=== PATIENT | male | born 1995 | race Two or more races ===

== ENCOUNTER 2021-01-26 21:48 | Inpatient (IN) | payer BC, MEDICAID ==
[~2021-01-26] VITALS: Ht 167.6 cm; Wt 42.7 kg
[2021-01-26] MEDS ORDERED: PRED-409 PO (21:57)
[2021-01-26] MEDS ORDERED: [UNRECOGNIZED DRUG - OTHER] PO (21:57)
[2021-01-26] MEDS ORDERED: INSU100C14 SQ (21:57)
[2021-01-26] MEDS ORDERED: IMURAN PO (21:57)
[2021-01-26 22:04] LABS: GLUCOMETER DEV NAME(LOC) ERT.5; GLUCOSE,POINT OF CARE 130 MG/DL (70-110)
[2021-01-26] MEDS ORDERED: HYDROmorphone 2 MG/ML VIAL IVP ONE (22:45)
[2021-01-26] MEDS ORDERED: ONDANSETRON HCL 4 MG/2 ML VIAL IVP ONE (22:45)
[2021-01-26] MEDS ORDERED: SODIUM CHLORIDE 0.9% 1,000 ML IV ONE (22:45)
[2021-01-26 23:12] LABS: COVID AG,FIA SOURCE NASOPHARYNGEAL
[2021-01-26] MEDS ORDERED: ONDANSETRON HCL 4 MG/2 ML VIAL IVP PRN ×2 (23:15→23:30)
[2021-01-26] MEDS ORDERED: 0.9% SODIUM CHLORIDE 10 ML SYRINGE IVP PRN (23:15)
[2021-01-26] MEDS ORDERED: BARIUM SULFATE 0.1% SUSPENSION 450 ML BOTTLE PO ONE (23:15)
[2021-01-26] MEDS ORDERED: MAGNESIUM HYDROXIDE SUSPENSION 30 ML UDCUP PO PRN (23:30)
[2021-01-26] MEDS ORDERED: INSULIN LISPRO 100 UNITS/ML SQ PRN (23:30)
[2021-01-26] MEDS ORDERED: DEXTROSE 50%-WATER 25 GM/50 ML SYRINGE IVP PRN (23:30)
[2021-01-26] MEDS ORDERED: MORPHINE SULFATE 2 MG/ML SYRINGE IVP PRN (23:30)
[2021-01-26] MEDS ORDERED: ACETAMINOPHEN 325 MG TABLET PO PRN (23:30)
[2021-01-26] MEDS ORDERED: BISACODYL 10 MG RECTAL RECTAL SUPPOSITORY PR PRN (23:30)
[2021-01-26] MEDS ORDERED: ZOLPIDEM TARTRATE 5 MG TABLET PO PRN (23:30)
[2021-01-26] MEDS ORDERED: HYDROCODONE/ACETAMINOPHEN 5-325 MG TABLET PO PRN (23:30)
[2021-01-26] MEDS ORDERED: DiphenhydrAMINE HCL 50 MG/ML VIAL IVP ONE (23:45)
[2021-01-27 01:13] LABS: ACETONE,BLOOD NEGATIVE (NEGATIVE)
[2021-01-27 01:15] LABS: ANION GAP 8 mmol/L (8-16); CALCIUM, TOTAL 7.4 mg/dL (8.8-10.5); CARBON DIOXIDE 21 mmol/L (22-29); CHLORIDE 98 mmol/L (98-107); CREATININE 1.42 mg/dL (0.60-1.30); GLOMERULAR FILTR. RATE CALC 60 mL/min (>60); GLUCOSE,RANDOM 198 mg/dL (70-110); POTASSIUM 5.7 mmol/L (3.5-5.1); UREA NITROGEN, BLOOD 18 mg/dL (7-18)
[2021-01-27 01:16] LABS: SODIUM SERUM 127 mmol/L (136-145)
[2021-01-27 01:21] LABS: BASOPHILS % (AUTO) 0.5 % (0.0-2.0); EOSINOPHILS % (AUTO) 3.7 % (1.0-6.0); HEMATOCRIT 21.4 % (41-53); HEMOGLOBIN 7.2 g/dL (13.5-17.5); LYMPHOCYTES # (AUTO) 0.9 K/uL (1.0-4.8); LYMPHOCYTES % (AUTO) 14.7 % (22.0-44.0); MEAN CORPUSCULAR HEMOGLOBIN 29.7 pg (26.0-34.0); MEAN CORPUSCULAR HGB CONC 33.7 G/dL (31.0-37.0); MEAN CORPUSCULAR VOLUME 88 fL (80-100); MONOCYTES # (AUTO) 0.6 K/uL (0.1-1.0); MONOCYTES % (AUTO) 9.4 % (2.0-9.0); NEUTROPHILS # (AUTO) 4.2 K/uL (1.8-7.7); NEUTROPHILS % (AUTO) 71.7 % (40.0-70.0); PLATELET COUNT (AUTO) 90 K/uL (150-450); RED BLOOD CELL COUNT(AUTO) 2.42 MIL/uL (4.50-5.90); RED CELL DISTRIBUTION WIDTH 15.2 % (11.5-14.5)
[2021-01-27 01:22] LABS: ALANINE AMINOTRANSFERASE 18 U/L (12-78); ALBUMIN 2.7 g/dL (3.4-5.0); ALKALINE PHOSPHATASE 68 U/L (46-116); ASPARTATE AMINOTRANSFERASE 17 U/L (15-37); BILIRUBIN,TOTAL 0.2 mg/dL (0.1-1.0); LIPASE 14 U/L (73-393); TOTAL PROTEIN, SERUM 5.5 g/dL (6.4-8.2)
[2021-01-27 01:23] LABS: B-TYPE NATRIURETIC PEPTIDE 21 pg/mL (0-100)
[2021-01-27] MEDS ORDERED: SODIUM CHLORIDE 0.9% 100 ML ONE (01:25)
[2021-01-27] MEDS ORDERED: IOHEXOL 350 MG/ML 75 ML VIAL ONE (01:25)
[2021-01-27 01:28] LABS: LACTIC ACID 1.8 mmol/L (0.4-2.0)
[2021-01-27 01:38] LABS: APPEARANCE,URINE CLEAR (CLEAR); BILIRUBIN,URINE NEGATIVE (NEGATIVE); GLUCOSE, URINE (UA) 100 mg/dL (NEGATIVE); KETONES,URINE NEGATIVE (NEGATIVE); LEUKOCYTE ESTERASE ,URINE NEGATIVE (NEGATIVE); NITRATE,URINE NEGATIVE (NEGATIVE); OCCULT BLOOD,URINE NEGATIVE (NEGATIVE); PROTEIN,URINE NEGATIVE (NEGATIVE); UROBILINOGEN,URINE 0.2 mg/dL (<=1.0)
[2021-01-27 01:44] LABS: AMPHET/METH SCREEN,URINE NEGATIVE (NEGATIVE); BARBITURATE SCREEN, URINE NEGATIVE (NEGATIVE); BENZODIAZEPINES SCREEN,URINE NEGATIVE (NEGATIVE); CANNABINOID SCREEN,URINE NEGATIVE (NEGATIVE); COCAINE SCREEN,URINE NEGATIVE (NEGATIVE); METHADONE SCREEN, URINE NEGATIVE (NEGATIVE); OPIATE SCREEN,URINE POSITIVE (NEGATIVE); PHENCYCLIDINE SCREEN,URINE NEGATIVE (NEGATIVE)
[2021-01-27 01:46] LABS: BACTERIA,URINE None Seen /HPF (None Seen); RBC,URINE 0-2 /HPF (0-2); SQUAMOUS EPITHELIAL CELL,UR None Seen /LPF (None Seen); WBC,URINE 0-2 /HPF (0-5)
[2021-01-27] MEDS: MORPHINE SULFATE 2 MG/ML SYRINGE IVP PRN ×6 (02:29→23:48)
[2021-01-27] MEDS ORDERED: HYDROmorphone 2 MG/ML VIAL IVP ONE ×2 (04:15→05:15)
[2021-01-27] MEDS ORDERED: HYDROmorphone 2 MG/ML VIAL IVP PRN (05:15)
[2021-01-27 05:34] VITALS: BP 120/68
[2021-01-27] MEDS: HEPARIN SODIUM,PORCINE 5,000 UNITS/ML VIAL SQ SCH ×4 (06:30→23:47)
[2021-01-27] MEDS ORDERED: SODIUM CHLORIDE 0.9% 1,000 ML IV ONE (07:00)
[2021-01-27 07:21] VITALS: BP 105/63
[2021-01-27] MEDS: PredniSONE 5 MG TABLET PO SCH ×2 (09:00→14:47)
[2021-01-27] MEDS: TACROLIMUS 5 MG CAPSULE PO SCH ×3 (09:00→20:15)
[2021-01-27] MEDS ORDERED: DOCUSATE SODIUM 100 MG CAPSULE PO SCH (09:00)
[2021-01-27] MEDS: TACROLIMUS 1 MG CAPSULE PO SCH ×3 (09:00→20:15)
[2021-01-27] MEDS ORDERED: PANTOPRAZOLE SODIUM 40 MG DR TABLET PO SCH (09:00)
[2021-01-27] MEDS: DOCUSATE SODIUM 100 MG CAPSULE PO SCH ×2 (10:15→20:16)
[2021-01-27] MEDS: PANTOPRAZOLE SODIUM 40 MG/VIAL IVP SCH ×2 (10:41→20:14)
[2021-01-27 10:52] LABS: BASOPHILS % (AUTO) 0.1 % (0.0-2.0); EOSINOPHILS % (AUTO) 2.3 % (1.0-6.0); HEMATOCRIT 21.4 % (41-53); HEMOGLOBIN 7.2 g/dL (13.5-17.5); LYMPHOCYTES # (AUTO) 0.5 K/uL (1.0-4.8); LYMPHOCYTES % (AUTO) 12.3 % (22.0-44.0); MEAN CORPUSCULAR HEMOGLOBIN 29.7 pg (26.0-34.0); MEAN CORPUSCULAR HGB CONC 33.6 G/dL (31.0-37.0); MEAN CORPUSCULAR VOLUME 89 fL (80-100); MONOCYTES # (AUTO) 0.4 K/uL (0.1-1.0); MONOCYTES % (AUTO) 9.1 % (2.0-9.0); NEUTROPHILS # (AUTO) 3.3 K/uL (1.8-7.7); NEUTROPHILS % (AUTO) 76.2 % (40.0-70.0); PLATELET COUNT (AUTO) 82 K/uL (150-450); RED BLOOD CELL COUNT(AUTO) 2.42 MIL/uL (4.50-5.90); RED CELL DISTRIBUTION WIDTH 15.4 % (11.5-14.5)
[2021-01-27 10:54] LABS: GLUCOMETER DEV NAME(LOC) 6S.1; GLUCOSE,POINT OF CARE 131 MG/DL (70-110)
[2021-01-27 11:06] LABS: ANION GAP 14 mmol/L (8-16); CALCIUM, TOTAL 7.8 mg/dL (8.8-10.5); CARBON DIOXIDE 22 mmol/L (22-29); CHLORIDE 101 mmol/L (98-107); GLOMERULAR FILTR. RATE CALC > 60 mL/min (>60); GLUCOSE,RANDOM 146 mg/dL (70-110); SODIUM SERUM 137 mmol/L (136-145); UREA NITROGEN, BLOOD 23 mg/dL (7-18)
[2021-01-27] MEDS ORDERED: AZAT50TA17 PO (11:09)
[2021-01-27] MEDS ORDERED: TACR4TAB PO (11:11)
[2021-01-27] MEDS ORDERED: TACR1TAB PO (11:11)
[2021-01-27] MEDS ORDERED: INSLAN SQ (11:11)
[2021-01-27] MEDS ORDERED: LIPA1CAP18 PO (11:11)
[2021-01-27] MEDS ORDERED: POLYETHYLENE GLYCOL 3350 17 GM PACKET PO SCH (12:45)
[2021-01-27] MEDS ORDERED: BISACODYL 10 MG RECTAL RECTAL SUPPOSITORY PR SCH (12:45)
[2021-01-27] MEDS ORDERED: SODIUM CHLORIDE 0.9% 1,000 ML IV SCH (13:00)
[2021-01-27] MEDS: DiphenhydrAMINE HCL 50 MG/ML VIAL IVP PRN ×2 (13:11→21:59)
[2021-01-27 13:32] LABS: INR 1.1 (0.9-1.1); PROTHROMBIN TIME 11.2 SEC (9.4-11.6)
[2021-01-27 13:33] LABS: PHOSPHORUS 4.2 mg/dL (2.5-4.9)
[2021-01-27 13:51] LABS: LACTIC ACID 0.6 mmol/L (0.4-2.0)
[2021-01-27 14:42] LABS: GLUCOMETER DEV NAME(LOC) 6S.1; GLUCOSE,POINT OF CARE 118 MG/DL (70-110)
[2021-01-27 16:16] LABS: % IRON SATURATION 12.8 % (30-44)
[2021-01-27 16:29] LABS: FERRITIN 72 ng/mL (26-388)
[2021-01-27 18:39] LABS: HEMATOCRIT 21.2 % (41-53)
[2021-01-27] MEDS ORDERED: MORPHINE SULFATE 2 MG/ML SYRINGE IVP ONE (21:45)
[2021-01-27 22:18] LABS: GLUCOMETER DEV NAME(LOC) 6N.1; GLUCOSE,POINT OF CARE 162 MG/DL (70-110)
[2021-01-28 03:35] LABS: BASOPHILS % (AUTO) 0.2 % (0.0-2.0); EOSINOPHILS % (AUTO) 2.6 % (1.0-6.0); LYMPHOCYTES # (AUTO) 0.7 K/uL (1.0-4.8); MEAN CORPUSCULAR HEMOGLOBIN 29.7 pg (26.0-34.0); MEAN CORPUSCULAR HGB CONC 33.3 G/dL (31.0-37.0); MEAN CORPUSCULAR VOLUME 89 fL (80-100); MONOCYTES # (AUTO) 0.3 K/uL (0.1-1.0); MONOCYTES % (AUTO) 8.9 % (2.0-9.0); NEUTROPHILS # (AUTO) 2.3 K/uL (1.8-7.7); NEUTROPHILS % (AUTO) 68.3 % (40.0-70.0); PLATELET COUNT (AUTO) 89 K/uL (150-450); RED CELL DISTRIBUTION WIDTH 15.7 % (11.5-14.5)
[2021-01-28] MEDS: MORPHINE SULFATE 2 MG/ML SYRINGE IVP PRN (03:37)
[2021-01-28 03:40] LABS: ANION GAP 7 mmol/L (8-16); CARBON DIOXIDE 25 mmol/L (22-29); CHLORIDE 106 mmol/L (98-107); CREATININE 1.34 mg/dL (0.60-1.30); GLOMERULAR FILTR. RATE CALC > 60 mL/min (>60); GLUCOSE,RANDOM 94 mg/dL (70-110); SODIUM SERUM 138 mmol/L (136-145); UREA NITROGEN, BLOOD 17 mg/dL (7-18)
[2021-01-28 03:42] LABS: POTASSIUM 5.9 mmol/L (3.5-5.1)
[2021-01-28 03:50] LABS: HEMATOCRIT 18.8 % (41-53); HEMOGLOBIN 6.3 g/dL (13.5-17.5)
[2021-01-28] MEDS ORDERED: SODIUM CHLORIDE 0.9% 500 ML IV ONE (04:51)
[2021-01-28 05:55] VITALS: BP 96/58
== END 2021-01-28 05:25 | disposition left against medical advice (07) | DRG 388 ==
LOC: EMS 21:48 → 6N 23:23
PROVIDERS: ADMIT Internal Medicine; ATTEND Internal Medicine
DX: K56.7 Ileus, unspecified (principal); E43 Unspecified severe protein-calorie malnutrition; E87.1 Hypo-osmolality and hyponatremia; N17.9 Acute kidney failure, unspecified; R64 Cachexia; Z94.2 Lung transplant status; Z68.1 Body mass index [BMI] 19.9 or less, adult; T86.19 Other complication of kidney transplant; K56.600 Partial intestinal obstruction, unspecified as to cause; E11.9 Type 2 diabetes mellitus without complications; D63.8 Anemia in other chronic diseases classified elsewhere; Z20.822 Contact with and (suspected) exposure to COVID-19; D69.6 Thrombocytopenia, unspecified; E87.5 Hyperkalemia; E87.6 Hypokalemia; E83.42 Hypomagnesemia; Y83.0 Surgical operation with transplant of whole organ as the cause of abnormal reaction of the patient, or of later complication, without mention of misadventure at the time of the procedure; Z53.21 Procedure and treatment not carried out due to patient leaving prior to being seen by health care provider; Z79.4 Long term (current) use of insulin; Z79.899 Other long term (current) drug therapy; Z79.52 Long term (current) use of systemic steroids; Y92.89 Other specified places as the place of occurrence of the external cause
CPT/HCPCS: 71045; 71260; 72193; 74160; 80048; 80053; 81001; 82009; 82728; 82962; 83540; 83550; 83605; 83690; 83735; 83880; 84100; 84484; 85014; 85018; 85025; 85610; 86850; 86900; 86901; 86923; 87040; 93005; 99285; C9113; G0378; J1170; J1200; J1644; J2270; J2405; J7030; J7040; J7050; J7500; J7507; Q9967; 36415-L1; 36415-TC

== ENCOUNTER 2021-01-29 21:02 | Emergency (ER) | payer BC, MEDICAID ==
[~2021-01-29] VITALS: Ht 167.6 cm; Wt 41.8 kg
[~2021-01-29 21:02] MED LIST: AZAT50TA17 PO; INSLAN SQ; INSU100C14 SQ; LIPA1CAP18 PO; PRED-409 PO; TACR1TAB PO; TACR4TAB PO
[2021-01-29 22:50] VITALS: BP 114/70
[2021-01-29] MEDS ORDERED: SODIUM CHLORIDE 0.9% 1,000 ML IV ONE (23:00)
[2021-01-29] MEDS ORDERED: MORPHINE SULFATE 4 MG/ML SYRINGE IVP ONE (23:00)
[2021-01-29] MEDS ORDERED: ONDANSETRON HCL 4 MG/2 ML VIAL IVP ONE (23:00)
[2021-01-29] MEDS ORDERED: DiphenhydrAMINE HCL 50 MG/ML VIAL IVP STA (23:02)
[2021-01-30] LABS: BASOPHILS % (AUTO) 0.3 % (0.0-2.0); EOSINOPHILS % (AUTO) 1.5 % (1.0-6.0); HEMATOCRIT 30.4 % (41-53); HEMOGLOBIN 10.1 g/dL (13.5-17.5); LYMPHOCYTES # (AUTO) 0.7 K/uL (1.0-4.8); LYMPHOCYTES % (AUTO) 17.4 % (22.0-44.0); MEAN CORPUSCULAR HEMOGLOBIN 29.9 pg (26.0-34.0); MEAN CORPUSCULAR HGB CONC 33.1 G/dL (31.0-37.0); MEAN CORPUSCULAR VOLUME 90 fL (80-100); MONOCYTES # (AUTO) 0.4 K/uL (0.1-1.0); MONOCYTES % (AUTO) 10.2 % (2.0-9.0); NEUTROPHILS % (AUTO) 70.6 % (40.0-70.0); PLATELET COUNT (AUTO) 158 K/uL (150-450); RED BLOOD CELL COUNT(AUTO) 3.37 MIL/uL (4.50-5.90); RED CELL DISTRIBUTION WIDTH 15.7 % (11.5-14.5)
[2021-01-30 00:09] LABS: CALCIUM, TOTAL 8.9 mg/dL (8.8-10.5); CREATININE 1.73 mg/dL (0.60-1.30); POTASSIUM 5.7 mmol/L (3.5-5.1)
[2021-01-30 00:13] LABS: INR 1.1 (0.9-1.1); PROTHROMBIN TIME 11.3 SEC (9.4-11.6)
[2021-01-30 00:15] LABS: ALBUMIN 3.5 g/dL (3.4-5.0); BILIRUBIN,TOTAL 0.3 mg/dL (0.1-1.0); MAGNESIUM 2.1 mg/dL (1.80-2.40); PHOSPHORUS 4.6 mg/dL (2.5-4.9); TOTAL PROTEIN, SERUM 7.4 g/dL (6.4-8.2)
[2021-01-30] MEDS ORDERED: ACETAMINOPHEN 325 MG TABLET PO PRN (00:30)
[2021-01-30] MEDS ORDERED: DEXTROSE 50%-WATER 25 GM/50 ML SYRINGE IVP ONE (00:30)
[2021-01-30] MEDS ORDERED: ONDANSETRON HCL 4 MG/2 ML VIAL IVP PRN (00:30)
[2021-01-30] MEDS ORDERED: SODIUM BICARBONATE [ADULT] 8.4% 50 MEQ/50 ML SYRINGE IVP ONE (00:30)
[2021-01-30] MEDS ORDERED: INSULIN REGULAR, HUMAN 100 UNITS/ML IVP ONE (00:30)
[2021-01-30 01:22] LABS: APPEARANCE,URINE CLEAR (CLEAR); BACTERIA,URINE Rare /HPF (None Seen); BILIRUBIN,URINE NEGATIVE (NEGATIVE); GLUCOSE, URINE (UA) 500 mg/dL (NEGATIVE); KETONES,URINE TRACE mg/dL (NEGATIVE); LEUKOCYTE ESTERASE ,URINE NEGATIVE (NEGATIVE); NITRATE,URINE NEGATIVE (NEGATIVE); OCCULT BLOOD,URINE NEGATIVE (NEGATIVE); PH,URINE 7.5 (5.0-8.0); PROTEIN,URINE POS 1+ (NEGATIVE); RBC,URINE 0-2 /HPF (0-2); UROBILINOGEN,URINE 0.2 mg/dL (<=1.0); WBC,URINE 0-2 /HPF (0-5)
[2021-01-30] MEDS ORDERED: MORPHINE SULFATE 4 MG/ML SYRINGE IVP ONE (02:45)
== END 2021-01-30 03:12 | disposition left against medical advice (07) ==
LOC: EMS 21:10
DX: E87.5 Hyperkalemia (principal); R11.2 Nausea with vomiting, unspecified; R19.7 Diarrhea, unspecified; E84.9 Cystic fibrosis, unspecified; E11.22 Type 2 diabetes mellitus with diabetic chronic kidney disease; N18.6 End stage renal disease; D63.1 Anemia in chronic kidney disease; Z99.2 Dependence on renal dialysis; Z94.2 Lung transplant status; Z79.899 Other long term (current) drug therapy
CPT/HCPCS: 36415; 71045; 80053; 81001; 82550; 83690; 83735; 83880; 84100; 84484; 85025; 85610; 85730; 86850; 86900; 86901; 86923; 93005; 96361; 96374; 96375 ×2; 96376; 99285; J1200; J1815; J2270; J2405 ×2; J3490; J7030

== ENCOUNTER 2021-02-07 09:36 | Emergency (ER) | payer BC, MEDICAID ==
[~2021-02-07] VITALS: Ht 167.6 cm; Wt 45.5 kg
[~2021-02-07 09:36] MED LIST changes: -AZAT50TA17 PO; -INSLAN SQ; -INSU100C14 SQ; -LIPA1CAP18 PO; -PRED-409 PO
[2021-02-07] MEDS ORDERED: INSLAN SQ (09:47)
[2021-02-07] MEDS ORDERED: BARIUM SULFATE 0.1% SUSPENSION 450 ML BOTTLE PO ONE (10:15)
[2021-02-07] MEDS ORDERED: MORPHINE SULFATE 2 MG/ML SYRINGE IVP ONE ×2 (10:15→13:45)
[2021-02-07] MEDS ORDERED: ONDANSETRON HCL 4 MG/2 ML VIAL IVP ONE (10:15)
[2021-02-07] MEDS ORDERED: SODIUM CHLORIDE 0.9% 1,000 ML IV ONE (10:15)
[2021-02-07 11:01] LABS: BASOPHILS % (AUTO) 0.8 % (0.0-2.0); EOSINOPHILS % (AUTO) 2.9 % (1.0-6.0); LYMPHOCYTES # (AUTO) 0.9 K/uL (1.0-4.8); LYMPHOCYTES % (AUTO) 26.5 % (22.0-44.0); MEAN CORPUSCULAR HEMOGLOBIN 30.4 pg (26.0-34.0); MEAN CORPUSCULAR HGB CONC 33.3 G/dL (31.0-37.0); MEAN CORPUSCULAR VOLUME 91 fL (80-100); MONOCYTES # (AUTO) 0.3 K/uL (0.1-1.0); MONOCYTES % (AUTO) 7.5 % (2.0-9.0); NEUTROPHILS # (AUTO) 2.2 K/uL (1.8-7.7); NEUTROPHILS % (AUTO) 62.3 % (40.0-70.0); PLATELET COUNT (AUTO) 161 K/uL (150-450); RED BLOOD CELL COUNT(AUTO) 2.95 MIL/uL (4.50-5.90)
[2021-02-07 11:10] LABS: CALCIUM, TOTAL 8.5 mg/dL (8.8-10.5); CREATININE 1.47 mg/dL (0.60-1.30); POTASSIUM 4.8 mmol/L (3.5-5.1)
[2021-02-07] MEDS ORDERED: IOHEXOL 350 MG/ML 150 ML VIAL ONE (11:15)
[2021-02-07] MEDS ORDERED: DiphenhydrAMINE HCL 50 MG/ML VIAL IVP ONE (11:15)
[2021-02-07] MEDS ORDERED: SODIUM CHLORIDE 0.9% 100 ML ONE (11:15)
[2021-02-07 11:19] LABS: ALBUMIN 3.2 g/dL (3.4-5.0); BILIRUBIN,TOTAL 0.2 mg/dL (0.1-1.0); TOTAL PROTEIN, SERUM 6.3 g/dL (6.4-8.2)
[2021-02-07] MEDS ORDERED: IOHEXOL 350 MG/ML 100 ML VIAL ONE (11:27)
[2021-02-07] MEDS ORDERED: DEXTROSE 50%-WATER 25 GM/50 ML SYRINGE IVP ONE (11:30)
[2021-02-07 12:35] LABS: APPEARANCE,URINE CLEAR (CLEAR); BILIRUBIN,URINE NEGATIVE (NEGATIVE); GLUCOSE, URINE (UA) 250 mg/dL (NEGATIVE); KETONES,URINE NEGATIVE (NEGATIVE); LEUKOCYTE ESTERASE ,URINE NEGATIVE (NEGATIVE); NITRATE,URINE NEGATIVE (NEGATIVE); OCCULT BLOOD,URINE NEGATIVE (NEGATIVE); PROTEIN,URINE NEGATIVE (NEGATIVE); UROBILINOGEN,URINE 0.2 mg/dL (<=1.0)
[2021-02-07 12:41] LABS: BACTERIA,URINE None Seen /HPF (None Seen); RBC,URINE None Seen /HPF (0-2); WBC,URINE None Seen /HPF (0-5)
[2021-02-07 14:38] VITALS: BP 130/72
== END 2021-02-07 14:39 | disposition home or self-care (01) ==
LOC: EMS 09:36
DX: E11.649 Type 2 diabetes mellitus with hypoglycemia without coma (principal); R10.30 Lower abdominal pain, unspecified; Z79.4 Long term (current) use of insulin; Z79.899 Other long term (current) drug therapy
CPT/HCPCS: 36415; 74177; 80053; 81001; 82948; 82962; 83690; 85025; 96361; 96374; 96375; 96376; 99285; J1200; J2270; J2405; J7030; J7050; Q9967

== ENCOUNTER 2021-02-15 02:55 | Emergency (ER) | payer BC, MEDICAID ==
[~2021-02-15] VITALS: Ht 167.6 cm; Wt 42.3 kg
[~2021-02-15 02:55] MED LIST changes: +INSLAN SQ
[2021-02-15] MEDS ORDERED: SODIUM CHLORIDE 0.9% 1,000 ML IV ONE (04:00)
[2021-02-15] MEDS ORDERED: HYDROCODONE/ACETAMINOPHEN 5-325 MG TABLET PO ONE ×2 (04:00→04:45)
[2021-02-15] MEDS ORDERED: ONDANSETRON HCL 4 MG/2 ML VIAL IVP ONE ×2 (04:00→05:30)
[2021-02-15 04:01] LABS: COVID AG,FIA SOURCE NASOPHARYNGEAL
[2021-02-15 04:25] LABS: APPEARANCE,URINE CLEAR (CLEAR); BILIRUBIN,URINE NEGATIVE (NEGATIVE); GLUCOSE, URINE (UA) 500 mg/dL (NEGATIVE); KETONES,URINE NEGATIVE (NEGATIVE); LEUKOCYTE ESTERASE ,URINE NEGATIVE (NEGATIVE); NITRATE,URINE NEGATIVE (NEGATIVE); OCCULT BLOOD,URINE NEGATIVE (NEGATIVE); PROTEIN,URINE NEGATIVE (NEGATIVE); UROBILINOGEN,URINE 0.2 mg/dL (<=1.0)
[2021-02-15 04:26] LABS: BASOPHILS % (AUTO) 0.6 % (0.0-2.0); EOSINOPHILS % (AUTO) 4.1 % (1.0-6.0); HEMATOCRIT 24.5 % (41-53); HEMOGLOBIN 8.6 g/dL (13.5-17.5); LYMPHOCYTES # (AUTO) 0.6 K/uL (1.0-4.8); LYMPHOCYTES % (AUTO) 23.3 % (22.0-44.0); MEAN CORPUSCULAR VOLUME 89 fL (80-100); MONOCYTES # (AUTO) 0.2 K/uL (0.1-1.0); NEUTROPHILS # (AUTO) 1.7 K/uL (1.8-7.7); PLATELET COUNT (AUTO) 154 K/uL (150-450); RED BLOOD CELL COUNT(AUTO) 2.76 MIL/uL (4.50-5.90); RED CELL DISTRIBUTION WIDTH 17.3 % (11.5-14.5)
[2021-02-15 04:27] LABS: ANION GAP 1 mmol/L (8-16); CALCIUM, TOTAL 8.5 mg/dL (8.8-10.5); CARBON DIOXIDE 28 mmol/L (22-29); CHLORIDE 101 mmol/L (98-107); CREATININE 1.39 mg/dL (0.60-1.30); GLOMERULAR FILTR. RATE CALC > 60 mL/min (>60); GLUCOSE,RANDOM 245 mg/dL (70-110); POTASSIUM 3.8 mmol/L (3.5-5.1); SODIUM SERUM 130 mmol/L (136-145); UREA NITROGEN, BLOOD 8 mg/dL (7-18)
[2021-02-15 04:30] LABS: INFLUENZA TYPE A NEGATIVE FOR TYPE A (NEGATIVE); INFLUENZA TYPE B NEGATIVE FOR TYPE B (NEGATIVE)
[2021-02-15 04:31] LABS: AMPHET/METH SCREEN,URINE NEGATIVE (NEGATIVE); BARBITURATE SCREEN, URINE NEGATIVE (NEGATIVE); BENZODIAZEPINES SCREEN,URINE NEGATIVE (NEGATIVE); CANNABINOID SCREEN,URINE NEGATIVE (NEGATIVE); COCAINE SCREEN,URINE NEGATIVE (NEGATIVE); METHADONE SCREEN, URINE NEGATIVE (NEGATIVE); OPIATE SCREEN,URINE NEGATIVE (NEGATIVE)
[2021-02-15 04:32] LABS: BACTERIA,URINE Rare /HPF (None Seen); RBC,URINE 0-2 /HPF (0-2); WBC,URINE 0-2 /HPF (0-5)
[2021-02-15 04:34] LABS: ALANINE AMINOTRANSFERASE 18 U/L (12-78); ALBUMIN 3.1 g/dL (3.4-5.0); ALKALINE PHOSPHATASE 79 U/L (46-116); ASPARTATE AMINOTRANSFERASE 15 U/L (15-37); BILIRUBIN,TOTAL 0.4 mg/dL (0.1-1.0); LIPASE < 10 U/L (73-393); TOTAL PROTEIN, SERUM 5.8 g/dL (6.4-8.2)
[2021-02-15 04:34] LABS: PHENCYCLIDINE SCREEN,URINE NEGATIVE (NEGATIVE)
[2021-02-15] MEDS ORDERED: PB/HYOSCY/ATR/SCOP/LIDO/MAALOX 55 ML BOTTLE PO ONE (05:30)
[2021-02-15 06:00] VITALS: BP 127/77
== END 2021-02-15 06:34 | disposition home or self-care (01) ==
LOC: EMS 02:58
DX: R10.84 Generalized abdominal pain (principal); R11.2 Nausea with vomiting, unspecified; F41.9 Anxiety disorder, unspecified; E11.9 Type 2 diabetes mellitus without complications; Z88.5 Allergy status to narcotic agent; Z88.8 Allergy status to other drugs, medicaments and biological substances; Z79.4 Long term (current) use of insulin; Z79.899 Other long term (current) drug therapy; Z20.822 Contact with and (suspected) exposure to COVID-19
CPT/HCPCS: 36415; 74022; 80053; 80307; 81001; 83690; 84145; 84484; 85025; 87426; 87804; 93005; 96374; 99285; J2405; J7030

== ENCOUNTER 2021-02-26 22:40 | Emergency (ER) | payer BC, MEDICAID ==
[~2021-02-26] VITALS: Ht 167.6 cm; Wt 42.3 kg
[2021-02-26 22:46] VITALS: BP 130/81
== END 2021-02-26 23:45 | disposition left against medical advice (07) ==
LOC: EMS 23:35
DX: R04.2 Hemoptysis (principal); Z53.21 Procedure and treatment not carried out due to patient leaving prior to being seen by health care provider

== ENCOUNTER 2021-02-27 06:16 | Emergency (ER) | payer BC, MEDICAID ==
[~2021-02-27] VITALS: Ht 167.6 cm; Wt 42.3 kg
[2021-02-27] MEDS ORDERED: DiphenhydrAMINE HCL 50 MG/ML VIAL IVP ONE ×2 (07:00→09:30)
[2021-02-27] MEDS ORDERED: HYDROmorphone 2 MG/ML VIAL IVP ONE ×2 (07:00→09:15)
[2021-02-27] MEDS ORDERED: SODIUM CHLORIDE 0.9% 1,000 ML IV ONE (07:00)
[2021-02-27] MEDS ORDERED: IOHEXOL 350 MG/ML 100 ML VIAL ONE (07:12)
[2021-02-27] MEDS ORDERED: SODIUM CHLORIDE 0.9% 0 ML ONE (07:12)
[2021-02-27 07:54] LABS: BASOPHILS % (AUTO) 0.5 % (0.0-2.0); EOSINOPHILS % (AUTO) 0.6 % (1.0-6.0); HEMATOCRIT 26.9 % (41-53); HEMOGLOBIN 9.6 g/dL (13.5-17.5); LYMPHOCYTES # (AUTO) 0.7 K/uL (1.0-4.8); LYMPHOCYTES % (AUTO) 19.6 % (22.0-44.0); MEAN CORPUSCULAR HGB CONC 35.6 G/dL (31.0-37.0); MEAN CORPUSCULAR VOLUME 93 fL (80-100); MONOCYTES # (AUTO) 0.3 K/uL (0.1-1.0); MONOCYTES % (AUTO) 9.8 % (2.0-9.0); NEUTROPHILS # (AUTO) 2.4 K/uL (1.8-7.7); NEUTROPHILS % (AUTO) 69.5 % (40.0-70.0); PLATELET COUNT (AUTO) 129 K/uL (150-450); RED BLOOD CELL COUNT(AUTO) 2.89 MIL/uL (4.50-5.90); RED CELL DISTRIBUTION WIDTH 19.5 % (11.5-14.5)
[2021-02-27 07:58] LABS: ANION GAP 2 mmol/L (8-16); CALCIUM, TOTAL 10.4 mg/dL (8.8-10.5); CARBON DIOXIDE 31 mmol/L (22-29); CHLORIDE 105 mmol/L (98-107); CREATININE 1.76 mg/dL (0.60-1.30); GLOMERULAR FILTR. RATE CALC 47 mL/min (>60); GLUCOSE,RANDOM 191 mg/dL (70-110); SODIUM SERUM 138 mmol/L (136-145); UREA NITROGEN, BLOOD 20 mg/dL (7-18)
[2021-02-27 08:04] LABS: ALANINE AMINOTRANSFERASE 20 U/L (12-78); ALBUMIN 3.5 g/dL (3.4-5.0); ALKALINE PHOSPHATASE 90 U/L (46-116); ASPARTATE AMINOTRANSFERASE 24 U/L (15-37); BILIRUBIN,TOTAL 0.3 mg/dL (0.1-1.0); LIPASE < 10 U/L (73-393); TOTAL PROTEIN, SERUM 6.7 g/dL (6.4-8.2)
[2021-02-27] MEDS ORDERED: SODIUM POLYSTYRENE SULFONATE 15 GM/60 ML SUSPENSION BOTTLE PO ONE (09:30)
[2021-02-27] MEDS ORDERED: CALCIUM GLUCONATE 100 MG/ML 10 ML IVP ONE (09:30)
[2021-02-27 09:56] VITALS: BP 128/68
== END 2021-02-27 09:56 | disposition home or self-care (01) ==
LOC: EMS 06:17
DX: R10.31 Right lower quadrant pain (principal); E87.5 Hyperkalemia; E11.9 Type 2 diabetes mellitus without complications; Z90.49 Acquired absence of other specified parts of digestive tract
CPT/HCPCS: 36415; 74176; 80053; 83605; 83690; 84132; 84484; 85025; 93005; 96361; 96374; 96375; 96376; 99285; J1170; J1200; J7030; J7050; Q9967

== ENCOUNTER 2021-04-11 07:54 | Emergency (ER) | payer BC, MEDICAID ==
[~2021-04-11] VITALS: Ht 167.6 cm; Wt 42.3 kg
[2021-04-11 08:09] VITALS: BP 134/76
[2021-04-11] MEDS ORDERED: BARIUM SULFATE 0.1% SUSPENSION 450 ML BOTTLE PO ONE (09:15)
[2021-04-11] MEDS ORDERED: ONDANSETRON HCL 4 MG/2 ML VIAL IVP ONE (09:15)
[2021-04-11] MEDS ORDERED: DIPHENOXYLATE/ATROP 2.5-0.025 MG TABLET PO ONE (09:15)
[2021-04-11] MEDS ORDERED: SODIUM CHLORIDE 0.9% 1,000 ML IV ONE (09:15)
== END 2021-04-11 09:29 | disposition left against medical advice (07) ==
LOC: EMS 08:00
DX: R10.9 Unspecified abdominal pain (principal); E11.9 Type 2 diabetes mellitus without complications; Z88.5 Allergy status to narcotic agent; Z88.8 Allergy status to other drugs, medicaments and biological substances; Z79.4 Long term (current) use of insulin
CPT/HCPCS: 99281

== ENCOUNTER 2021-07-25 06:19 | Inpatient (IN) | payer BC, MEDICAID ==
[~2021-07-25] VITALS: Ht 167.6 cm; Wt 44.9 kg
[2021-07-25] MEDS ORDERED: SODIUM CHLORIDE 0.9% 500 ML IV ONE ×2 (07:15→09:15)
[2021-07-25] MEDS ORDERED: HYDROmorphone 2 MG/ML VIAL IM ONE (07:15)
[2021-07-25] MEDS ORDERED: DiphenhydrAMINE HCL 50 MG/ML VIAL IVP ONE (07:30)
[2021-07-25 08:00] LABS: BASOPHILS % (AUTO) 0.3 % (0.0-2.0); EOSINOPHILS % (AUTO) 1.9 % (1.0-6.0); HEMATOCRIT 24.4 % (41-53); HEMOGLOBIN 8.2 g/dL (13.5-17.5); LYMPHOCYTES # (AUTO) 1.1 K/uL (1.0-4.8); LYMPHOCYTES % (AUTO) 29.2 % (22.0-44.0); MEAN CORPUSCULAR HEMOGLOBIN 29.3 pg (26.0-34.0); MEAN CORPUSCULAR HGB CONC 33.5 G/dL (31.0-37.0); MEAN CORPUSCULAR VOLUME 88 fL (80-100); MONOCYTES # (AUTO) 0.3 K/uL (0.1-1.0); MONOCYTES % (AUTO) 6.7 % (2.0-9.0); NEUTROPHILS # (AUTO) 2.4 K/uL (1.8-7.7); NEUTROPHILS % (AUTO) 61.9 % (40.0-70.0); PLATELET COUNT (AUTO) 164 K/uL (150-450); RED BLOOD CELL COUNT(AUTO) 2.79 MIL/uL (4.50-5.90); RED CELL DISTRIBUTION WIDTH 15.2 % (11.5-14.5)
[2021-07-25 08:12] LABS: ALANINE AMINOTRANSFERASE 26 U/L (12-78); ALBUMIN 3.7 g/dL (3.4-5.0); ALKALINE PHOSPHATASE 102 U/L (46-116); ANION GAP 7 mmol/L (8-16); ASPARTATE AMINOTRANSFERASE 13 U/L (15-37); BILIRUBIN,TOTAL 0.2 mg/dL (0.1-1.0); CALCIUM, TOTAL 8.6 mg/dL (8.8-10.5); CARBON DIOXIDE 24 mmol/L (22-29); CHLORIDE 110 mmol/L (98-107); CREATININE 1.86 mg/dL (0.60-1.30); GLOMERULAR FILTR. RATE CALC 44 mL/min (>60); GLUCOSE,RANDOM 226 mg/dL (70-110); SODIUM SERUM 141 mmol/L (136-145); TOTAL PROTEIN, SERUM 7.4 g/dL (6.4-8.2); UREA NITROGEN, BLOOD 34 mg/dL (7-18)
[2021-07-25] MEDS ORDERED: HYDROmorphone 2 MG/ML VIAL IVP ONE ×2 (08:15→11:15)
[2021-07-25 08:19] LABS: POTASSIUM 6.1 mmol/L (3.5-5.1)
[2021-07-25] MEDS ORDERED: IOHEXOL 350 MG/ML 100 ML VIAL ONE (08:24)
[2021-07-25] MEDS ORDERED: SODIUM CHLORIDE 0.9% 100 ML ONE (08:24)
[2021-07-25 08:25] LABS: LIPASE < 10 U/L (73-393)
[2021-07-25 08:38] LABS: COVID AG,FIA SOURCE NASOPHARYNGEAL
[2021-07-25] MEDS ORDERED: INSULIN REGULAR, HUMAN 100 UNITS/ML IVP ONE ×2 (08:45→17:30)
[2021-07-25] MEDS ORDERED: DEXTROSE 50%-WATER 25 GM/50 ML SYRINGE IVP ONE ×2 (08:45→17:30)
[2021-07-25 09:21] LABS: GLUCOSE,POINT OF CARE 157 MG/DL (70-110)
[2021-07-25 10:11] LABS: APPEARANCE,URINE CLEAR (CLEAR); BILIRUBIN,URINE NEGATIVE (NEGATIVE); GLUCOSE, URINE (UA) 300-500 mg/dL (NEGATIVE); KETONES,URINE NEGATIVE (NEGATIVE); LEUKOCYTE ESTERASE ,URINE NEGATIVE (NEGATIVE); NITRATE,URINE NEGATIVE (NEGATIVE); OCCULT BLOOD,URINE NEGATIVE (NEGATIVE); PH,URINE 5.5 (5.0-8.0); PROTEIN,URINE TRACE mg/dL (NEGATIVE); UROBILINOGEN,URINE <=1.0 mg/dL (<=1.0)
[2021-07-25 10:31] LABS: GLUCOSE,POINT OF CARE 119 MG/DL (70-110)
[2021-07-25 10:45] LABS: BACTERIA,URINE None Seen /HPF (None Seen); RBC,URINE 0-2 /HPF (0-2); WBC,URINE None Seen /HPF (0-5)
[2021-07-25] MEDS ORDERED: ACETAMINOPHEN 325 MG TABLET PO PRN (12:45)
[2021-07-25] MEDS ORDERED: HYDROmorphone 2 MG/ML VIAL IVP PRN (12:45)
[2021-07-25] MEDS ORDERED: ONDANSETRON HCL 4 MG/2 ML VIAL IVP PRN (12:45)
[2021-07-25] MEDS ORDERED: OxyCODONE HCL/ACETAMINOPHEN 5-325 MG TABLET PO PRN (12:45)
[2021-07-25] MEDS ORDERED: BISACODYL 10 MG RECTAL RECTAL SUPPOSITORY PR PRN (12:45)
[2021-07-25] MEDS ORDERED: ZOLPIDEM TARTRATE 5 MG TABLET PO PRN (12:45)
[2021-07-25] MEDS ORDERED: SODIUM ZIRCONIUM CYCLOSILICATE 5 GM POWDER PACKET PO ONE (12:45)
[2021-07-25] MEDS ORDERED: MAGNESIUM HYDROXIDE SUSPENSION 30 ML UDCUP PO PRN (12:45)
[2021-07-25 13:33] VITALS: BP 123/72
[2021-07-25] MEDS: TACROLIMUS 5 MG CAPSULE PO SCH ×2 (14:44→21:07)
[2021-07-25] MEDS: TACROLIMUS 1 MG CAPSULE PO SCH ×2 (14:44→21:08)
[2021-07-25] MEDS: HEPARIN SODIUM,PORCINE 5,000 UNITS/ML VIAL SQ SCH (16:00)
[2021-07-25] MEDS: HYDROmorphone 2 MG/ML VIAL IVP PRN ×2 (16:39→22:35)
[2021-07-25 20:39] VITALS: BP 121/77
[2021-07-25] MEDS ORDERED: [UNRECOGNIZED DRUG - OTHER] PO SCH (21:00)
[2021-07-25] MEDS: INSULIN GLARGINE,HUM.REC.ANLOG 100 UNITS/ML SQ SCH (21:00)
[2021-07-25] MEDS: DOCUSATE SODIUM 100 MG CAPSULE PO SCH (21:00)
[2021-07-25] MEDS: PredniSONE 5 MG TABLET PO SCH (21:08)
[2021-07-25 21:57] LABS: CALCIUM, TOTAL 8.2 mg/dL (8.8-10.5); CREATININE 1.65 mg/dL (0.60-1.30); POTASSIUM 4.8 mmol/L (3.5-5.1)
[2021-07-25] MEDS ORDERED: PROMETHAZINE HCL 25 MG TABLET PO PRN (22:00)
[2021-07-25] MEDS: DEXTROSE 5%-0.45% SODIUM CHL 1,000 ML IV SCH (22:35)
[2021-07-26] MEDS: DEXTROSE 5%-0.45% SODIUM CHL 1,000 ML IV SCH ×2 (04:25→18:04)
[2021-07-26] MEDS: HYDROmorphone 2 MG/ML VIAL IVP PRN ×4 (04:33→22:31)
[2021-07-26 04:36] VITALS: BP 114/69
[2021-07-26] MEDS: HEPARIN SODIUM,PORCINE 5,000 UNITS/ML VIAL SQ SCH ×3 (08:00→16:00)
[2021-07-26] MEDS: PANTOPRAZOLE SODIUM 40 MG DR TABLET PO SCH (08:33)
[2021-07-26] MEDS: DOCUSATE SODIUM 100 MG CAPSULE PO SCH ×2 (08:34→19:53)
[2021-07-26] MEDS: PredniSONE 5 MG TABLET PO SCH (08:34)
[2021-07-26] MEDS: TACROLIMUS 5 MG CAPSULE PO SCH ×2 (08:35→19:52)
[2021-07-26] MEDS: TACROLIMUS 1 MG CAPSULE PO SCH ×2 (08:35→19:52)
[2021-07-26] MEDS: INSULIN GLARGINE,HUM.REC.ANLOG 100 UNITS/ML SQ SCH ×2 (08:35→19:53)
[2021-07-26 08:44] VITALS: BP 104/69
[2021-07-26 11:42] LABS: BASOPHILS % (AUTO) 0.6 % (0.0-2.0); EOSINOPHILS % (AUTO) 3.9 % (1.0-6.0); HEMATOCRIT 23.4 % (41-53); HEMOGLOBIN 7.6 g/dL (13.5-17.5); LYMPHOCYTES # (AUTO) 0.6 K/uL (1.0-4.8); LYMPHOCYTES % (AUTO) 27.5 % (22.0-44.0); MEAN CORPUSCULAR HEMOGLOBIN 28.5 pg (26.0-34.0); MEAN CORPUSCULAR HGB CONC 32.7 G/dL (31.0-37.0); MEAN CORPUSCULAR VOLUME 87 fL (80-100); MONOCYTES # (AUTO) 0.1 K/uL (0.1-1.0); MONOCYTES % (AUTO) 6.3 % (2.0-9.0); NEUTROPHILS # (AUTO) 1.4 K/uL (1.8-7.7); NEUTROPHILS % (AUTO) 61.7 % (40.0-70.0); PLATELET COUNT (AUTO) 146 K/uL (150-450); RED BLOOD CELL COUNT(AUTO) 2.68 MIL/uL (4.50-5.90); RED CELL DISTRIBUTION WIDTH 15.5 % (11.5-14.5)
[2021-07-26 11:58] LABS: CALCIUM, TOTAL 8.2 mg/dL (8.8-10.5); CREATININE 1.57 mg/dL (0.60-1.30); MAGNESIUM 1.8 mg/dL (1.80-2.40); PHOSPHORUS 3.6 mg/dL (2.5-4.9)
[2021-07-26 12:04] LABS: POTASSIUM 6.1 mmol/L (3.5-5.1)
[2021-07-26 12:21] LABS: GLUCOMETER DEV NAME(LOC) 5N.1C; GLUCOSE,POINT OF CARE 150 MG/DL (70-110)
[2021-07-26] MEDS ORDERED: INSULIN REGULAR, HUMAN 100 UNITS/ML IVP ONE ×2 (12:45→17:45)
[2021-07-26] MEDS ORDERED: DEXTROSE 50%-WATER 25 GM/50 ML SYRINGE IVP ONE ×2 (12:45→17:45)
[2021-07-26] MEDS ORDERED: SODIUM ZIRCONIUM CYCLOSILICATE 5 GM POWDER PACKET PO ONE (12:45)
[2021-07-26 13:00] VITALS: BP 119/73
[2021-07-26 17:17] LABS: CREATININE 1.6 mg/dL (0.60-1.30)
[2021-07-26 17:19] LABS: POTASSIUM 6.1 mmol/L (3.5-5.1)
[2021-07-26] MEDS ORDERED: HYDROmorphone 2 MG/ML VIAL IVP ONE (19:15)
[2021-07-26] MEDS ORDERED: DEXTROSE 50%-WATER 25 GM/50 ML SYRINGE IVP PRN (19:45)
[2021-07-26] MEDS: INSULIN LISPRO 100 UNITS/ML SQ PRN (19:51)
[2021-07-26 19:56] VITALS: BP 127/80
[2021-07-26] MEDS ORDERED: INSULIN LISPRO 100 UNITS/ML SQ ONE (20:00)
[2021-07-26 20:26] LABS: GLUCOMETER DEV NAME(LOC) 5N.1C; GLUCOSE,POINT OF CARE 464 MG/DL (70-110)
[2021-07-26 20:26] LABS: GLUCOMETER DEV NAME(LOC) 5N.1C; GLUCOSE,POINT OF CARE 236 MG/DL (70-110)
[2021-07-26 20:36] LABS: GLUCOMETER DEV NAME(LOC) 5S.1B; GLUCOSE,POINT OF CARE 329 MG/DL (70-110)
[2021-07-26 21:40] LABS: CREATININE 1.6 mg/dL (0.60-1.30); POTASSIUM 5.3 mmol/L (3.5-5.1)
[2021-07-26] MEDS ORDERED: CETIRIZINE HCL 10 MG TABLET PO PRN (23:15)
[2021-07-26 23:41] VITALS: BP 120/71
[2021-07-27] MEDS: DEXTROSE 5%-0.45% SODIUM CHL 1,000 ML IV SCH (04:28)
[2021-07-27] MEDS: HYDROmorphone 2 MG/ML VIAL IVP PRN ×2 (04:28→10:36)
[2021-07-27 04:43] VITALS: BP 133/78
[2021-07-27] MEDS: HEPARIN SODIUM,PORCINE 5,000 UNITS/ML VIAL SQ SCH ×2 (08:00)
[2021-07-27] MEDS: INSULIN GLARGINE,HUM.REC.ANLOG 100 UNITS/ML SQ SCH (09:00)
[2021-07-27] MEDS: INSULIN LISPRO 100 UNITS/ML SQ PRN (09:07)
[2021-07-27 09:25] VITALS: BP 124/83
[2021-07-27 10:25] LABS: BASOPHILS % (AUTO) 1.1 % (0.0-2.0); EOSINOPHILS % (AUTO) 2.6 % (1.0-6.0); HEMATOCRIT 24.4 % (41-53); HEMOGLOBIN 8.1 g/dL (13.5-17.5); LYMPHOCYTES # (AUTO) 0.7 K/uL (1.0-4.8); LYMPHOCYTES % (AUTO) 29.3 % (22.0-44.0); MEAN CORPUSCULAR HEMOGLOBIN 28.6 pg (26.0-34.0); MEAN CORPUSCULAR HGB CONC 33.2 G/dL (31.0-37.0); MEAN CORPUSCULAR VOLUME 86 fL (80-100); MONOCYTES # (AUTO) 0.2 K/uL (0.1-1.0); MONOCYTES % (AUTO) 6.7 % (2.0-9.0); NEUTROPHILS # (AUTO) 1.5 K/uL (1.8-7.7); NEUTROPHILS % (AUTO) 60.3 % (40.0-70.0); PLATELET COUNT (AUTO) 118 K/uL (150-450); RED BLOOD CELL COUNT(AUTO) 2.82 MIL/uL (4.50-5.90)
[2021-07-27] MEDS: DOCUSATE SODIUM 100 MG CAPSULE PO SCH (10:34)
[2021-07-27] MEDS: PANTOPRAZOLE SODIUM 40 MG DR TABLET PO SCH (10:34)
[2021-07-27] MEDS: TACROLIMUS 1 MG CAPSULE PO SCH (10:35)
[2021-07-27] MEDS: TACROLIMUS 5 MG CAPSULE PO SCH (10:35)
[2021-07-27 10:40] LABS: CALCIUM, TOTAL 8.7 mg/dL (8.8-10.5); CREATININE 1.55 mg/dL (0.60-1.30); MAGNESIUM 1.8 mg/dL (1.80-2.40); PHOSPHORUS 3.4 mg/dL (2.5-4.9); POTASSIUM 5.9 mmol/L (3.5-5.1)
[2021-07-27] MEDS: PredniSONE 5 MG TABLET PO SCH (10:42)
[2021-07-27] MEDS ORDERED: SODIUM POLYSTYRENE SULFONATE 15 GM/60 ML SUSPENSION BOTTLE PO ONE (11:00)
[2021-07-27] MEDS ORDERED: PRED-549 PO (11:12)
[2021-07-27] MEDS ORDERED: KAYEX60 PO (11:12)
[2021-07-27] MEDS ORDERED: AZAT50TA22 PO (11:12)
[2021-07-27] MEDS ORDERED: METO5TAB95 PO (11:13)
[2021-07-27 12:11] LABS: GLUCOMETER DEV NAME(LOC) 6N.1; GLUCOSE,POINT OF CARE 234 MG/DL (70-110)
[2021-07-28] MEDS ORDERED: SODIUM ZIRCONIUM CYCLOSILICATE 5 GM POWDER PACKET PO SCH (09:00)
== END 2021-07-27 14:20 | disposition home or self-care (01) | DRG 73 ==
LOC: EMS 06:20 → 5S 11:22 → 6N 07-27 08:40
PROVIDERS: ADMIT Internal Medicine; ATTEND Internal Medicine
DX: E11.43 Type 2 diabetes mellitus with diabetic autonomic (poly)neuropathy (principal); N18.6 End stage renal disease; E84.9 Cystic fibrosis, unspecified; D84.9 Immunodeficiency, unspecified; E46 Unspecified protein-calorie malnutrition; Z68.1 Body mass index [BMI] 19.9 or less, adult; Z94.2 Lung transplant status; N17.9 Acute kidney failure, unspecified; K31.84 Gastroparesis; R79.89 Other specified abnormal findings of blood chemistry; Z20.822 Contact with and (suspected) exposure to COVID-19; E11.22 Type 2 diabetes mellitus with diabetic chronic kidney disease; E87.5 Hyperkalemia; Z79.4 Long term (current) use of insulin; Z79.899 Other long term (current) drug therapy; Z90.49 Acquired absence of other specified parts of digestive tract; Z88.5 Allergy status to narcotic agent; Z88.0 Allergy status to penicillin; Z88.8 Allergy status to other drugs, medicaments and biological substances; Z97.4 Presence of external hearing-aid
CPT/HCPCS: 74177; 80048; 80053; 81001; 82962; 83605; 83690; 83735; 84100; 84132; 85025; 93005; 99291; J1170; J1200; J1644; J1815; J2405; J7040; J7050; J7500; J7507; Q9967

== ENCOUNTER 2021-08-12 17:38 | Inpatient (IN) | payer BC, MEDICAID ==
[~2021-08-12] VITALS: Ht 167.6 cm; Wt 42.2 kg
[~2021-08-12 17:38] MED LIST changes: +AZAT50TA22 PO; +KAYEX60 PO; +METO5TAB95 PO; +PRED-549 PO
[2021-08-12] MEDS ORDERED: SODIUM CHLORIDE 0.9% 1,000 ML IV ONE (19:45)
[2021-08-12] MEDS ORDERED: HYDROmorphone 2 MG/ML VIAL IVP ONE (19:45)
[2021-08-12] MEDS ORDERED: DiphenhydrAMINE HCL 50 MG/ML VIAL IVP ONE (19:45)
[2021-08-12 20:27] LABS: BASOPHILS % (AUTO) 0.3 % (0.0-2.0); EOSINOPHILS % (AUTO) 3.8 % (1.0-6.0); HEMATOCRIT 27.4 % (41-53); HEMOGLOBIN 9.2 g/dL (13.5-17.5); LYMPHOCYTES # (AUTO) 0.6 K/uL (1.0-4.8); LYMPHOCYTES % (AUTO) 19.5 % (22.0-44.0); MEAN CORPUSCULAR HEMOGLOBIN 28.3 pg (26.0-34.0); MEAN CORPUSCULAR HGB CONC 33.5 G/dL (31.0-37.0); MEAN CORPUSCULAR VOLUME 84 fL (80-100); MONOCYTES # (AUTO) 0.2 K/uL (0.1-1.0); MONOCYTES % (AUTO) 7.1 % (2.0-9.0); NEUTROPHILS # (AUTO) 2.1 K/uL (1.8-7.7); NEUTROPHILS % (AUTO) 69.3 % (40.0-70.0); PLATELET COUNT (AUTO) 131 K/uL (150-450); RED BLOOD CELL COUNT(AUTO) 3.25 MIL/uL (4.50-5.90); RED CELL DISTRIBUTION WIDTH 14.5 % (11.5-14.5)
[2021-08-12 20:33] LABS: CALCIUM, TOTAL 9.3 mg/dL (8.8-10.5); CREATININE 1.53 mg/dL (0.60-1.30); POTASSIUM 4.5 mmol/L (3.5-5.1)
[2021-08-12 20:40] LABS: COVID AG,FIA SOURCE NASOPHARYNGEAL
[2021-08-12 20:40] LABS: ALBUMIN 3.8 g/dL (3.4-5.0); BILIRUBIN,TOTAL 0.4 mg/dL (0.1-1.0); TOTAL PROTEIN, SERUM 7.5 g/dL (6.4-8.2)
[2021-08-12] MEDS ORDERED: 0.9% SODIUM CHLORIDE 10 ML SYRINGE IVP PRN (21:00)
[2021-08-12] MEDS ORDERED: ONDANSETRON HCL 4 MG/2 ML VIAL IVP PRN (21:00)
[2021-08-12] MEDS ORDERED: BARIUM SULFATE 0.1% SUSPENSION 450 ML BOTTLE PO ONE (21:00)
[2021-08-12] MEDS: ONDANSETRON HCL 4 MG/2 ML VIAL IVP ONE ×2 (21:38→22:02)
[2021-08-12] MEDS: HYDROmorphone 2 MG/ML VIAL IVP PRN (23:06)
[2021-08-12] MEDS ORDERED: PredniSONE 20 MG TABLET PO ONE (23:30)
[2021-08-12] MEDS ORDERED: TACROLIMUS 1 MG CAPSULE PO ONE (23:30)
[2021-08-12 23:44] VITALS: BP 124/77
[2021-08-12] MEDS ORDERED: TACR1CAP12 PO (23:46)
[2021-08-13] MEDS: DiphenhydrAMINE HCL 50 MG/ML VIAL IVP PRN ×2 (00:11→06:41)
[2021-08-13] MEDS: HYDROmorphone 2 MG/ML VIAL IVP PRN ×2 (03:00→06:42)
[2021-08-13 04:51] LABS: GLUCOMETER DEV NAME(LOC) 6N.1; GLUCOSE,POINT OF CARE 126 MG/DL (70-110)
[2021-08-13 05:27] VITALS: BP 100/64
[2021-08-13] MEDS ORDERED: ZOLPIDEM TARTRATE 5 MG TABLET PO PRN (09:00)
[2021-08-13] MEDS ORDERED: INSULIN GLARGINE,HUM.REC.ANLOG 100 UNITS/ML SQ SCH (09:00)
[2021-08-13] MEDS ORDERED: DOCUSATE SODIUM 100 MG CAPSULE PO SCH (09:00)
[2021-08-13] MEDS ORDERED: ALBUTEROL SULFATE 2.5 MG/0.5 ML NEB SOLUTION NEB PRN (09:00)
[2021-08-13] MEDS ORDERED: TACROLIMUS 1 MG CAPSULE PO ONE ×3 (09:00)
[2021-08-13] MEDS ORDERED: PredniSONE 5 MG TABLET PO SCH (09:00)
[2021-08-13] MEDS ORDERED: PANTOPRAZOLE SODIUM 40 MG/VIAL IVP SCH (09:00)
[2021-08-13] MEDS ORDERED: ONDANSETRON HCL 4 MG/2 ML VIAL IVP PRN (09:00)
[2021-08-13] MEDS ORDERED: [UNRECOGNIZED DRUG - OTHER] PO SCH (09:00)
[2021-08-13] MEDS ORDERED: BISACODYL 10 MG RECTAL RECTAL SUPPOSITORY PR PRN (09:00)
[2021-08-13] MEDS ORDERED: MAGNESIUM HYDROXIDE SUSPENSION 30 ML UDCUP PO PRN (09:00)
[2021-08-13] MEDS ORDERED: PredniSONE 20 MG TABLET PO ONE (09:00)
[2021-08-13] MEDS ORDERED: ACETAMINOPHEN 325 MG TABLET PO PRN (09:00)
[2021-08-13] MEDS ORDERED: IPRATROPIUM BROMIDE 0.5 MG/2.5 ML NEB SOLUTION NEB PRN (09:00)
[2021-08-13] MEDS ORDERED: SODIUM CHLORIDE 0.45% 1,000 ML IV SCH (09:15)
[2021-08-13 09:31] VITALS: BP 121/62
[2021-08-13] MEDS ORDERED: HEPARIN SODIUM,PORCINE 5,000 UNITS/ML VIAL SQ SCH (16:00)
[2021-08-13 20:11] LABS: GLUCOMETER DEV NAME(LOC) 6N.2; GLUCOSE,POINT OF CARE 184 MG/DL (70-110)
[2021-08-13] MEDS ORDERED: TACROLIMUS 1 MG CAPSULE PO SCH (21:00)
== END 2021-08-13 12:30 | disposition left against medical advice (07) | DRG 389 ==
LOC: EMS 17:38 → 6S 23:33
PROVIDERS: ADMIT Hospitalist; ATTEND Hospitalist
DX: K56.600 Partial intestinal obstruction, unspecified as to cause (principal); E84.9 Cystic fibrosis, unspecified; D61.818 Other pancytopenia; Z94.0 Kidney transplant status; Z94.2 Lung transplant status; E86.0 Dehydration; E11.65 Type 2 diabetes mellitus with hyperglycemia; Z79.4 Long term (current) use of insulin; Z91.19 Patient's noncompliance with other medical treatment and regimen; Z88.5 Allergy status to narcotic agent; Z88.8 Allergy status to other drugs, medicaments and biological substances; Z79.899 Other long term (current) drug therapy; Z91.041 Radiographic dye allergy status
CPT/HCPCS: 71045; 74176; 80053; 82962; 83605; 83690; 85025; 87040; 87081; C9113; J1170; J1200; J1815; J2405; J7030; J7500; J7507; Q9967; 36415-L1; 36415-TC

== ENCOUNTER 2021-10-21 20:52 | Emergency (ER) | payer BC, MEDICAID ==
[~2021-10-21] VITALS: Ht 167.6 cm; Wt 43.6 kg
[~2021-10-21 20:52] MED LIST changes: +FIDA200T PO; -INSLAN SQ; +INSU100V SQ; +ONDA-104 PO; +PROM25SU10 PR
[2021-10-21 22:04] LABS: CALCIUM, TOTAL 8.4 mg/dL (8.8-10.5); CREATININE 2.07 mg/dL (0.60-1.30); POTASSIUM 5.5 mmol/L (3.5-5.1)
[2021-10-21 22:06] LABS: ALBUMIN 3.9 g/dL (3.4-5.0); BILIRUBIN,TOTAL 0.3 mg/dL (0.1-1.0); TOTAL PROTEIN, SERUM 7.2 g/dL (6.4-8.2)
[2021-10-21] MEDS ORDERED: SODIUM CHLORIDE 0.9% 1,000 ML IV ONE (22:30)
[2021-10-21] MEDS ORDERED: HYDROmorphone 2 MG/ML VIAL IVP ONE (22:45)
[2021-10-21] MEDS ORDERED: ONDANSETRON HCL 4 MG/2 ML VIAL ONE (22:58)
[2021-10-21] MEDS ORDERED: ONDANSETRON HCL 4 MG/2 ML VIAL IVP ONE (23:00)
[2021-10-21] MEDS ORDERED: SODIUM ZIRCONIUM CYCLOSILICATE 5 GM POWDER PACKET PO ONE (23:15)
[2021-10-21] MEDS ORDERED: CALCIUM GLUCONATE 1,000 MG in DEXTROSE 5%-WATER 50 ML IV ONE (23:15)
[2021-10-21 23:17] LABS: APPEARANCE,URINE CLEAR (CLEAR); BILIRUBIN,URINE NEGATIVE (NEGATIVE); GLUCOSE, URINE (UA) TRACE mg/dL (NEGATIVE); KETONES,URINE NEGATIVE (NEGATIVE); LEUKOCYTE ESTERASE ,URINE NEGATIVE (NEGATIVE); NITRATE,URINE NEGATIVE (NEGATIVE); OCCULT BLOOD,URINE NEGATIVE (NEGATIVE); PH,URINE 6.5 (5.0-8.0); PROTEIN,URINE NEGATIVE (NEGATIVE); SPECIFIC GRAVITIY, URINE 1.008 (1.003-1.030); UROBILINOGEN,URINE <=1.0 mg/dL (<=1.0)
[2021-10-21 23:22] LABS: AMPHET/METH SCREEN,URINE NEGATIVE (NEGATIVE); BARBITURATE SCREEN, URINE NEGATIVE (NEGATIVE); BENZODIAZEPINES SCREEN,URINE NEGATIVE (NEGATIVE); CANNABINOID SCREEN,URINE NEGATIVE (NEGATIVE); COCAINE SCREEN,URINE NEGATIVE (NEGATIVE); METHADONE SCREEN, URINE NEGATIVE (NEGATIVE); OPIATE SCREEN,URINE NEGATIVE (NEGATIVE)
[2021-10-21 23:27] LABS: PHENCYCLIDINE SCREEN,URINE NEGATIVE (NEGATIVE)
[2021-10-22 00:51] LABS: COVID AG,FIA SOURCE NASAL SWAB
[2021-10-22 01:00] LABS: BASOPHILS % (AUTO) 0.8 % (0.0-2.0); EOSINOPHILS % (AUTO) 3.8 % (1.0-6.0); HEMATOCRIT 30.8 % (41-53); HEMOGLOBIN 10.4 g/dL (13.5-17.5); LYMPHOCYTES # (AUTO) 0.8 K/uL (1.0-4.8); LYMPHOCYTES % (AUTO) 21.9 % (22.0-44.0); MEAN CORPUSCULAR HEMOGLOBIN 30.8 pg (26.0-34.0); MEAN CORPUSCULAR HGB CONC 33.8 G/dL (31.0-37.0); MEAN CORPUSCULAR VOLUME 91 fL (80-100); MONOCYTES # (AUTO) 0.4 K/uL (0.1-1.0); MONOCYTES % (AUTO) 11.4 % (2.0-9.0); NEUTROPHILS # (AUTO) 2.3 K/uL (1.8-7.7); NEUTROPHILS % (AUTO) 62.1 % (40.0-70.0); PLATELET COUNT (AUTO) 139 K/uL (150-450); RED BLOOD CELL COUNT(AUTO) 3.39 MIL/uL (4.50-5.90); RED CELL DISTRIBUTION WIDTH 15.1 % (11.5-14.5)
[2021-10-22 01:11] LABS: INFLUENZA TYPE A NEGATIVE FOR TYPE A (NEGATIVE); INFLUENZA TYPE B NEGATIVE FOR TYPE B (NEGATIVE)
[2021-10-22 02:00] VITALS: BP 144/82
[2021-10-22] MEDS ORDERED: HYDROmorphone 2 MG/ML VIAL IVP ONE (02:30)
[2021-10-22] MEDS ORDERED: POLYETHYLENE GLYCOL 3350 17 GM PACKET PO ONE (04:45)
== END 2021-10-22 05:20 | disposition left against medical advice (07) ==
LOC: EMS 20:52
DX: N17.9 Acute kidney failure, unspecified (principal); Z20.822 Contact with and (suspected) exposure to COVID-19; E87.5 Hyperkalemia; E11.65 Type 2 diabetes mellitus with hyperglycemia; E84.9 Cystic fibrosis, unspecified; E11.22 Type 2 diabetes mellitus with diabetic chronic kidney disease; N18.6 End stage renal disease; R11.2 Nausea with vomiting, unspecified; R19.7 Diarrhea, unspecified; R10.30 Lower abdominal pain, unspecified; N05.2 Unspecified nephritic syndrome with diffuse membranous glomerulonephritis; Z87.19 Personal history of other diseases of the digestive system; Z88.6 Allergy status to analgesic agent
CPT/HCPCS: 99285; 74176; 96365; 76776; 71046; 96361; 96375; 87426; 80053; 81003; 83690; 85025; 87804; 36415; 93005; 80307; 96376; J1170 ×2; J2405; Q9967; J7060; J7030; J0610

== ENCOUNTER 2021-11-06 05:02 | Emergency (ER) | payer BC, MEDICAID ==
[~2021-11-06] VITALS: Ht 167.6 cm; Wt 40.9 kg
[2021-11-06 05:59] LABS: COVID AG,FIA SOURCE NASOPHARYNGEAL
[2021-11-06] MEDS ORDERED: SODIUM CHLORIDE 0.9% 1,000 ML IV ONE ×2 (06:15→09:30)
[2021-11-06] MEDS ORDERED: HYDROmorphone 2 MG/ML VIAL IVP ONE ×2 (06:15→08:00)
[2021-11-06] MEDS ORDERED: DiphenhydrAMINE HCL 50 MG/ML VIAL IVP ONE (06:15)
[2021-11-06 06:59] LABS: BASOPHILS % (AUTO) 0.2 % (0.0-2.0); HEMATOCRIT 29.2 % (41-53); HEMOGLOBIN 10.2 g/dL (13.5-17.5); LYMPHOCYTES # (AUTO) 0.9 K/uL (1.0-4.8); LYMPHOCYTES % (AUTO) 19.8 % (22.0-44.0); MEAN CORPUSCULAR HEMOGLOBIN 30.9 pg (26.0-34.0); MEAN CORPUSCULAR HGB CONC 34.9 G/dL (31.0-37.0); MEAN CORPUSCULAR VOLUME 89 fL (80-100); MONOCYTES # (AUTO) 0.3 K/uL (0.1-1.0); MONOCYTES % (AUTO) 6.9 % (2.0-9.0); NEUTROPHILS # (AUTO) 3.4 K/uL (1.8-7.7); NEUTROPHILS % (AUTO) 72.1 % (40.0-70.0); PLATELET COUNT (AUTO) 147 K/uL (150-450); RED BLOOD CELL COUNT(AUTO) 3.29 MIL/uL (4.50-5.90); RED CELL DISTRIBUTION WIDTH 13.3 % (11.5-14.5)
[2021-11-06 07:12] LABS: CALCIUM, TOTAL 8.7 mg/dL (8.8-10.5); CREATININE 1.61 mg/dL (0.60-1.30); POTASSIUM 3.9 mmol/L (3.5-5.1)
[2021-11-06 07:18] LABS: ALBUMIN 3.1 g/dL (3.4-5.0); BILIRUBIN,TOTAL 0.2 mg/dL (0.1-1.0); TOTAL PROTEIN, SERUM 6.5 g/dL (6.4-8.2)
[2021-11-06] MEDS ORDERED: SODIUM CHLORIDE 0.9% 0 ML ONE (07:18)
[2021-11-06] MEDS ORDERED: IOHEXOL 350 MG/ML 100 ML VIAL ONE (07:18)
[2021-11-06] MEDS ORDERED: ONDANSETRON HCL 4 MG/2 ML VIAL IVP ONE (08:00)
[2021-11-06] MEDS ORDERED: ONDANSETRON HCL 4 MG/2 ML VIAL IVP PRN (09:15)
[2021-11-06] MEDS ORDERED: ALBUTEROL SULFATE 2.5 MG/0.5 ML NEB SOLUTION NEB PRN (09:15)
[2021-11-06] MEDS ORDERED: ACETAMINOPHEN 325 MG TABLET PO PRN (09:15)
[2021-11-06] MEDS ORDERED: PANTOPRAZOLE SODIUM 40 MG/VIAL IVP SCH (09:15)
[2021-11-06] MEDS ORDERED: HYDROmorphone 2 MG/ML VIAL IVP PRN (09:30)
[2021-11-06] MEDS ORDERED: DEXTROSE 50%-WATER 25 GM/50 ML SYRINGE IVP PRN (09:30)
[2021-11-06] MEDS ORDERED: INSULIN LISPRO 100 UNITS/ML SQ PRN (09:30)
[2021-11-06 10:19] VITALS: BP 135/85
[2021-11-06] MEDS ORDERED: HEPARIN SODIUM,PORCINE 5,000 UNITS/ML VIAL SQ SCH (16:00)
[2021-11-06] MEDS ORDERED: TACROLIMUS 1 MG CAPSULE PO SCH (21:00)
[2021-11-06] MEDS ORDERED: DOCUSATE SODIUM 100 MG CAPSULE PO SCH (21:00)
[2021-11-07] MEDS ORDERED: PredniSONE 5 MG TABLET PO SCH (09:00)
== END 2021-11-06 10:35 | disposition left against medical advice (07) ==
LOC: EMS 05:02
DX: R11.2 Nausea with vomiting, unspecified (principal); E11.9 Type 2 diabetes mellitus without complications; Z88.5 Allergy status to narcotic agent; Z88.1 Allergy status to other antibiotic agents; Z88.8 Allergy status to other drugs, medicaments and biological substances; Z79.899 Other long term (current) drug therapy; Z20.822 Contact with and (suspected) exposure to COVID-19
CPT/HCPCS: 99285; 74176; 96374; 96375; 96361; 87426; 80053; 83690; 85025; 36415; 96376; 80197; J1200; J1170; J2405; J7030; J7050; J7507; Q9967

== ENCOUNTER 2021-11-17 04:27 | Emergency (ER) | payer BC, MEDICAID ==
[~2021-11-17] VITALS: Ht 167.6 cm; Wt 42.3 kg
[2021-11-17 05:00] VITALS: BP 154/84
[2021-11-17 06:15] LABS: BASOPHILS % (AUTO) 0.5 % (0.0-2.0); EOSINOPHILS % (AUTO) 2.7 % (1.0-6.0); HEMATOCRIT 27.5 % (41-53); HEMOGLOBIN 9.3 g/dL (13.5-17.5); LYMPHOCYTES # (AUTO) 0.7 K/uL (1.0-4.8); LYMPHOCYTES % (AUTO) 19.1 % (22.0-44.0); MEAN CORPUSCULAR HEMOGLOBIN 30.2 pg (26.0-34.0); MEAN CORPUSCULAR HGB CONC 33.8 G/dL (31.0-37.0); MEAN CORPUSCULAR VOLUME 89 fL (80-100); MONOCYTES # (AUTO) 0.2 K/uL (0.1-1.0); MONOCYTES % (AUTO) 6.9 % (2.0-9.0); NEUTROPHILS # (AUTO) 2.5 K/uL (1.8-7.7); NEUTROPHILS % (AUTO) 70.8 % (40.0-70.0); PLATELET COUNT (AUTO) 107 K/uL (150-450); RED BLOOD CELL COUNT(AUTO) 3.09 MIL/uL (4.50-5.90); RED CELL DISTRIBUTION WIDTH 14.7 % (11.5-14.5)
[2021-11-17] MEDS ORDERED: PB/HYOSCY/ATR/SCOP/LIDO/MAALOX 55 ML BOTTLE PO ONE (06:30)
[2021-11-17] MEDS ORDERED: ONDANSETRON HCL 4 MG/2 ML VIAL IVP ONE (06:30)
[2021-11-17] MEDS ORDERED: SODIUM CHLORIDE 0.9% 1,000 ML IV ONE (06:30)
[2021-11-17 06:34] LABS: CALCIUM, TOTAL 8.7 mg/dL (8.8-10.5); CREATININE 1.55 mg/dL (0.60-1.30); POTASSIUM 5.5 mmol/L (3.5-5.1)
[2021-11-17 06:36] LABS: ALBUMIN 3.4 g/dL (3.4-5.0); BILIRUBIN,TOTAL 0.3 mg/dL (0.1-1.0); TOTAL PROTEIN, SERUM 6.9 g/dL (6.4-8.2)
== END 2021-11-17 06:50 | disposition left against medical advice (07) ==
LOC: EMS 04:29
DX: R10.84 Generalized abdominal pain (principal); Z76.5 Malingerer [conscious simulation]; E11.9 Type 2 diabetes mellitus without complications; E84.9 Cystic fibrosis, unspecified; K92.0 Hematemesis; Z94.2 Lung transplant status; Z90.89 Acquired absence of other organs
CPT/HCPCS: 80053; 83690; 85025; 99283; J2405; J7030

== ENCOUNTER 2021-12-12 02:22 | Emergency (ER) | payer BC, MEDICAID ==
[~2021-12-12] VITALS: Ht 162.6 cm; Wt 43.2 kg
[2021-12-12] MEDS ORDERED: KETOROLAC TROMETHAMINE 30 MG/ML VIAL IVP ONE (02:45)
[2021-12-12] MEDS ORDERED: SODIUM CHLORIDE 0.9% 1,000 ML IV ONE (02:45)
[2021-12-12] MEDS ORDERED: ONDANSETRON HCL 4 MG/2 ML VIAL IVP ONE (02:45)
[2021-12-12 02:51] LABS: GLUCOMETER DEV NAME(LOC) ERT.5; GLUCOSE,POINT OF CARE 108 MG/DL (70-110)
[2021-12-12] MEDS ORDERED: ACETAMINOPHEN 1000 MG/ISO-OSM 100 ML IV ONE (03:00)
[2021-12-12 03:29] LABS: BASOPHILS % (AUTO) 0.3 % (0.0-2.0); EOSINOPHILS % (AUTO) 2.4 % (1.0-6.0); HEMATOCRIT 29.5 % (41-53); HEMOGLOBIN 9.7 g/dL (13.5-17.5); LYMPHOCYTES # (AUTO) 0.4 K/uL (1.0-4.8); LYMPHOCYTES % (AUTO) 15.3 % (22.0-44.0); MEAN CORPUSCULAR HEMOGLOBIN 29.8 pg (26.0-34.0); MEAN CORPUSCULAR HGB CONC 32.7 G/dL (31.0-37.0); MEAN CORPUSCULAR VOLUME 91 fL (80-100); MONOCYTES # (AUTO) 0.3 K/uL (0.1-1.0); MONOCYTES % (AUTO) 11.8 % (2.0-9.0); NEUTROPHILS % (AUTO) 70.2 % (40.0-70.0); PLATELET COUNT (AUTO) 113 K/uL (150-450); RED BLOOD CELL COUNT(AUTO) 3.25 MIL/uL (4.50-5.90); RED CELL DISTRIBUTION WIDTH 14.6 % (11.5-14.5)
[2021-12-12 03:35] VITALS: BP 136/77
[2021-12-12 03:37] LABS: CREATININE 1.42 mg/dL (0.60-1.30)
[2021-12-12 03:38] LABS: CALCIUM, TOTAL 8.5 mg/dL (8.8-10.5)
[2021-12-12 03:44] LABS: ALBUMIN 3.2 g/dL (3.4-5.0); BILIRUBIN,TOTAL 0.3 mg/dL (0.1-1.0); TOTAL PROTEIN, SERUM 6.7 g/dL (6.4-8.2)
[2021-12-12] MEDS: SODIUM CHLORIDE 0.9% 1,000 ML IV ONE ×2 (03:49→04:07)
== END 2021-12-12 04:05 | disposition home or self-care (01) ==
LOC: EMS 02:23
DX: R11.2 Nausea with vomiting, unspecified (principal); R10.32 Left lower quadrant pain; E11.9 Type 2 diabetes mellitus without complications; Z90.89 Acquired absence of other organs; Z88.0 Allergy status to penicillin; Z87.09 Personal history of other diseases of the respiratory system; Z88.4 Allergy status to anesthetic agent
CPT/HCPCS: 99284; 96365; 96375; 80053; 82962; 83690; 85025; 36415; J2405; J7030; J0131

== ENCOUNTER 2022-05-04 01:24 | Emergency (ER) | payer BC, OTHER ==
[~2022-05-04] VITALS: Ht 167.6 cm; Wt 40.9 kg
[~2022-05-04 01:24] MED LIST changes: -KAYEX60 PO
[2022-05-04] MEDS ORDERED: METOCLOPRAMIDE HCL 5 MG/ML 2 ML VIAL IVP ONE (03:00)
[2022-05-04] MEDS ORDERED: SODIUM CHLORIDE 0.9% 1,000 ML IV ONE (03:00)
[2022-05-04] MEDS ORDERED: FAMOTIDINE 40 MG in SODIUM CHLORIDE 0.9% 100 ML IV ONE (03:00)
[2022-05-04 03:12] LABS: APPEARANCE,URINE CLEAR (CLEAR); BILIRUBIN,URINE NEGATIVE (NEGATIVE); GLUCOSE, URINE (UA) >=1000 mg/dL (NEGATIVE); KETONES,URINE NEGATIVE (NEGATIVE); LEUKOCYTE ESTERASE ,URINE NEGATIVE (NEGATIVE); NITRATE,URINE NEGATIVE (NEGATIVE); OCCULT BLOOD,URINE NEGATIVE (NEGATIVE); PH,URINE 5.5 (5.0-8.0); PROTEIN,URINE TRACE mg/dL (NEGATIVE); SPECIFIC GRAVITIY, URINE 1.021 (1.003-1.030); UROBILINOGEN,URINE <=1.0 mg/dL (<=1.0)
[2022-05-04 03:21] LABS: AMPHET/METH SCREEN,URINE NEGATIVE (NEGATIVE); BARBITURATE SCREEN, URINE NEGATIVE (NEGATIVE); BENZODIAZEPINES SCREEN,URINE NEGATIVE (NEGATIVE); CANNABINOID SCREEN,URINE NEGATIVE (NEGATIVE); COCAINE SCREEN,URINE NEGATIVE (NEGATIVE); METHADONE SCREEN, URINE NEGATIVE (NEGATIVE); OPIATE SCREEN,URINE NEGATIVE (NEGATIVE); PHENCYCLIDINE SCREEN,URINE NEGATIVE (NEGATIVE)
[2022-05-04 03:25] LABS: BACTERIA,URINE None Seen /HPF (None Seen); RBC,URINE 0-2 /HPF (0-2); SQUAMOUS EPITHELIAL CELL,UR Few /LPF (None Seen); URIC ACID CRYSTALS,URINE Few /LPF (None Seen); WBC,URINE None Seen /HPF (0-5)
[2022-05-04] MEDS ORDERED: ONDANSETRON HCL 4 MG/2 ML VIAL IVP ONE (03:45)
[2022-05-04] MEDS ORDERED: SODIUM CHLORIDE 0.9% 100 ML ONE (04:00)
[2022-05-04] MEDS ORDERED: FAMOTIDINE 10 MG/ML 2 ML VIAL ONE (04:00)
[2022-05-04 04:07] LABS: BASOPHILS % (AUTO) 0.4 % (0.0-2.0); HEMATOCRIT 26.7 % (41-53); LYMPHOCYTES # (AUTO) 0.8 K/uL (1.0-4.8); MONOCYTES # (AUTO) 0.3 K/uL (0.1-1.0); NEUTROPHILS # (AUTO) 1.8 K/uL (1.8-7.7)
[2022-05-04 04:14] LABS: CALCIUM, TOTAL 8.2 mg/dL (8.8-10.5); CREATININE 1.6 mg/dL (0.60-1.30); POTASSIUM 5.1 mmol/L (3.5-5.1)
[2022-05-04 04:16] LABS: EOSINOPHILS % (AUTO) 4.8 % (1.0-6.0); HEMOGLOBIN 9.2 g/dL (13.5-17.5); LYMPHOCYTES % (AUTO) 24.9 % (22.0-44.0); MEAN CORPUSCULAR HEMOGLOBIN 31.5 pg (26.0-34.0); MEAN CORPUSCULAR HGB CONC 34.6 G/dL (31.0-37.0); MEAN CORPUSCULAR VOLUME 91 fL (80-100); MONOCYTES % (AUTO) 10.5 % (2.0-9.0); NEUTROPHILS % (AUTO) 59.4 % (40.0-70.0); PLATELET COUNT (AUTO) 104 K/uL (150-450); RED BLOOD CELL COUNT(AUTO) 2.93 MIL/uL (4.50-5.90); RED CELL DISTRIBUTION WIDTH 14.4 % (11.5-14.5)
[2022-05-04 04:20] LABS: ALBUMIN 3.5 g/dL (3.4-5.0); BILIRUBIN,TOTAL 0.2 mg/dL (0.1-1.0); TOTAL PROTEIN, SERUM 6.6 g/dL (6.4-8.2)
[2022-05-04 05:48] VITALS: BP 110/74
== END 2022-05-04 05:57 | disposition home or self-care (01) ==
LOC: EMS 01:26
DX: R10.9 Unspecified abdominal pain (principal); E86.0 Dehydration; E11.9 Type 2 diabetes mellitus without complications; Z90.49 Acquired absence of other specified parts of digestive tract; Z98.890 Other specified postprocedural states; Z88.5 Allergy status to narcotic agent; Z91.040 Latex allergy status; Z88.8 Allergy status to other drugs, medicaments and biological substances
CPT/HCPCS: 99284; 96365; 96375; 80053; 83690; 85025; 36415; 93005; 81001; 80307 ×2; J3490; J2765; J2405; J7030; J7050

== ENCOUNTER 2022-06-21 10:05 | Emergency (ER) | payer BC, OTHER ==
[2022-06-21 10:19] LABS: COVID AG,FIA SOURCE NASAL SWAB
[2022-06-21 10:25] VITALS: BP 141/89
[2022-06-21] MEDS ORDERED: BARIUM SULFATE 0.1% SUSPENSION 450 ML BOTTLE PO ONE ×2 (10:30)
[2022-06-21] MEDS ORDERED: ONDANSETRON HCL 4 MG/2 ML VIAL IVP ONE (10:30)
[2022-06-21 11:19] LABS: INFLUENZA TYPE A NEGATIVE FOR TYPE A (NEGATIVE); INFLUENZA TYPE B NEGATIVE FOR TYPE B (NEGATIVE)
== END 2022-06-21 10:50 | disposition left against medical advice (07) ==
LOC: EMS 10:09
DX: F41.9 Anxiety disorder, unspecified (principal); R10.2 Pelvic and perineal pain; E11.9 Type 2 diabetes mellitus without complications; Z90.49 Acquired absence of other specified parts of digestive tract; Z98.890 Other specified postprocedural states; Z20.822 Contact with and (suspected) exposure to COVID-19
CPT/HCPCS: 99284; 87426; 87804; 36415; C9803; J2405

== ENCOUNTER 2022-09-13 04:09 | Emergency (ER) | payer BC, OTHER ==
[~2022-09-13 04:09] MED LIST changes: -FIDA200T PO; -METO5TAB95 PO; -ONDA-104 PO; -PROM25SU10 PR
[2022-09-13 04:54] VITALS: TEMP 97.3
[2022-09-13] MEDS ORDERED: SODIUM CHLORIDE 0.9% 1,000 ML IV ONE (05:15)
[2022-09-13] MEDS ORDERED: ONDANSETRON HCL 4 MG/2 ML VIAL IVP ONE (05:15)
[2022-09-13] MEDS ORDERED: FentaNYL CITRATE PF 100 MCG/2 ML VIAL IVP ONE (05:15)
[2022-09-13 06:06] LABS: BASOPHILS % (AUTO) 0.5 % (0.0-2.0); EOSINOPHILS % (AUTO) 1.9 % (1.0-6.0); HEMATOCRIT 23.5 % (41-53); HEMOGLOBIN 7.8 g/dL (13.5-17.5); LYMPHOCYTES # (AUTO) 0.5 K/uL (1.0-4.8); LYMPHOCYTES % (AUTO) 15.4 % (22.0-44.0); MEAN CORPUSCULAR HEMOGLOBIN 28.9 pg (26.0-34.0); MEAN CORPUSCULAR HGB CONC 33.3 G/dL (31.0-37.0); MEAN CORPUSCULAR VOLUME 87 fL (80-100); MONOCYTES # (AUTO) 0.3 K/uL (0.1-1.0); MONOCYTES % (AUTO) 7.5 % (2.0-9.0); NEUTROPHILS # (AUTO) 2.6 K/uL (1.8-7.7); NEUTROPHILS % (AUTO) 74.7 % (40.0-70.0); PLATELET COUNT (AUTO) 101 K/uL (150-450); RED BLOOD CELL COUNT(AUTO) 2.71 MIL/uL (4.50-5.90); RED CELL DISTRIBUTION WIDTH 15.8 % (11.5-14.5)
[2022-09-13 06:15] LABS: ALANINE AMINOTRANSFERASE 20 U/L (12-78); ALKALINE PHOSPHATASE 92 U/L (46-116); ANION GAP 11 mmol/L (8-16); ASPARTATE AMINOTRANSFERASE 18 U/L (15-37); BILIRUBIN,TOTAL 0.2 mg/dL (0.1-1.0); CALCIUM, TOTAL 8.8 mg/dL (8.8-10.5); CARBON DIOXIDE 24 mmol/L (22-29); CHLORIDE 104 mmol/L (98-107); CREATININE 1.38 mg/dL (0.60-1.30); GLOMERULAR FILTR. RATE CALC > 60 mL/min (>60); GLUCOSE,RANDOM 311 mg/dL (70-110); LIPASE < 10 U/L (73-393); POTASSIUM 4.1 mmol/L (3.5-5.1); SODIUM SERUM 139 mmol/L (136-145); TOTAL PROTEIN, SERUM 6.6 g/dL (6.4-8.2)
[2022-09-13 06:48] VITALS: BP 119/68; PULSE 79; RESP 16
== END 2022-09-13 07:20 | disposition home or self-care (01) ==
LOC: EMS 04:12
DX: R10.84 Generalized abdominal pain (principal); R11.2 Nausea with vomiting, unspecified; E11.9 Type 2 diabetes mellitus without complications; Z90.49 Acquired absence of other specified parts of digestive tract; Z98.890 Other specified postprocedural states; Z88.6 Allergy status to analgesic agent; Z91.040 Latex allergy status; Z88.8 Allergy status to other drugs, medicaments and biological substances
CPT/HCPCS: 99285; 74176; 96374; 96361; 96375; 80053; 83690; 85025; 93005; J3010; J2405; J7030

== ENCOUNTER 2022-10-18 17:36 | Emergency (ER) | payer BC, OTHER ==
[~2022-10-18] VITALS: Ht 170.2 cm; Wt 51.0 kg
[2022-10-18 17:43] VITALS: BP 119/86; PULSE 95; RESP 16; TEMP 98.7
== END 2022-10-18 19:28 | disposition left against medical advice (07) ==
LOC: EMS 17:37
DX: R10.9 Unspecified abdominal pain (principal); R11.2 Nausea with vomiting, unspecified; Z53.21 Procedure and treatment not carried out due to patient leaving prior to being seen by health care provider
CPT/HCPCS: 99281; Z7502

== ENCOUNTER 2022-11-22 20:07 | Emergency (ER) | payer BC, OTHER ==
[~2022-11-22] VITALS: Ht 175.3 cm; Wt 75.0 kg
[2022-11-22 20:15] VITALS: BP 134/82; PULSE 99; RESP 16; TEMP 98.1
[2022-11-22 20:30] LABS: GLUCOMETER DEV NAME(LOC) ERT.5; GLUCOSE,POINT OF CARE 311 MG/DL (70-110)
== END 2022-11-22 20:41 | disposition left against medical advice (07) ==
LOC: EMS 20:08
DX: R19.7 Diarrhea, unspecified (principal); R11.10 Vomiting, unspecified; R10.84 Generalized abdominal pain; Z53.21 Procedure and treatment not carried out due to patient leaving prior to being seen by health care provider
CPT/HCPCS: 82962; 99281

== ENCOUNTER 2022-12-06 01:10 | Emergency (ER) | payer BC, OTHER ==
[2022-12-06] MEDS ORDERED: LIPA1CAP18 PO (17:05)
== END 2022-12-06 01:46 | disposition home or self-care (01) ==
LOC: EMS 01:12
DX: Z53.21 Procedure and treatment not carried out due to patient leaving prior to being seen by health care provider (principal)

== ENCOUNTER 2022-12-06 14:03 | Inpatient (IN) | payer BC, OTHER ==
[~2022-12-06] VITALS: Ht 165.1 cm; Wt 47.0 kg
[2022-12-06] MEDS ORDERED: INSULIN REGULAR, HUMAN 100 UNITS/ML IVP ONE (14:45)
[2022-12-06] MEDS ORDERED: SODIUM CHLORIDE 0.9% 1,000 ML IV ONE ×2 (14:45→17:00)
[2022-12-06 15:02] LABS: BASOPHILS % (AUTO) 0.6 % (0.0-2.0); EOSINOPHILS % (AUTO) 3.6 % (1.0-6.0); HEMATOCRIT 32.5 % (41-53); HEMOGLOBIN 10.8 g/dL (13.5-17.5); LYMPHOCYTES # (AUTO) 0.5 K/uL (1.0-4.8); LYMPHOCYTES % (AUTO) 13.7 % (22.0-44.0); MEAN CORPUSCULAR HEMOGLOBIN 30.9 pg (26.0-34.0); MEAN CORPUSCULAR HGB CONC 33.3 G/dL (31.0-37.0); MEAN CORPUSCULAR VOLUME 93 fL (80-100); MONOCYTES # (AUTO) 0.3 K/uL (0.1-1.0); MONOCYTES % (AUTO) 7.1 % (2.0-9.0); NEUTROPHILS # (AUTO) 2.8 K/uL (1.8-7.7); PLATELET COUNT (AUTO) 130 K/uL (150-450); RED BLOOD CELL COUNT(AUTO) 3.51 MIL/uL (4.50-5.90); RED CELL DISTRIBUTION WIDTH 18.7 % (11.5-14.5); WHITE BLOOD COUNT (AUTO) 3.8 K/uL (4.5-11.0)
[2022-12-06 15:16] LABS: ALANINE AMINOTRANSFERASE 27 U/L (12-78); ALBUMIN 3.2 g/dL (3.4-5.0); ALKALINE PHOSPHATASE 100 U/L (46-116); ANION GAP 8 mmol/L (8-16); ASPARTATE AMINOTRANSFERASE 19 U/L (15-37); BILIRUBIN,TOTAL 0.3 mg/dL (0.1-1.0); CALCIUM, TOTAL 8.6 mg/dL (8.8-10.5); CARBON DIOXIDE 22 mmol/L (22-29); CHLORIDE 98 mmol/L (98-107); CREATININE 1.36 mg/dL (0.60-1.30); GLOMERULAR FILTR. RATE CALC > 60 mL/min (>60); LIPASE < 10 U/L (16-77); POTASSIUM 5.5 mmol/L (3.5-5.1); SODIUM SERUM 128 mmol/L (136-145); TOTAL PROTEIN, SERUM 6.9 g/dL (6.4-8.2); UREA NITROGEN, BLOOD 19 mg/dL (7-18)
[2022-12-06 15:18] LABS: ALCOHOL, BLOOD (SERUM) < 3 mg/dL (0-10); GLUCOSE,RANDOM 430 mg/dL (70-110)
[2022-12-06 15:23] LABS: ACETONE,BLOOD NEGATIVE (NEGATIVE)
[2022-12-06 15:31] LABS: RBC MORPHOLOGY COMMENT NORMAL RBC MORPH
[2022-12-06] MEDS ORDERED: DEXTROSE 50%-WATER 25 GM/50 ML SYRINGE IVP ONE ×2 (16:30→17:45)
[2022-12-06] MEDS ORDERED: HYDROmorphone HCL 2 MG/ML SYRINGE IVP ONE (16:30)
[2022-12-06] MEDS ORDERED: DiphenhydrAMINE HCL 50 MG/ML VIAL IVP ONE (16:30)
[2022-12-06 16:34] LABS: APPEARANCE,URINE CLEAR (CLEAR); BILIRUBIN,URINE NEGATIVE (NEGATIVE); COLOR,URINE LIGHT YELLOW (YELLOW); GLUCOSE, URINE (UA) >=1000 mg/dL (NEGATIVE); KETONES,URINE NEGATIVE (NEGATIVE); LEUKOCYTE ESTERASE ,URINE NEGATIVE (NEGATIVE); NITRATE,URINE NEGATIVE (NEGATIVE); OCCULT BLOOD,URINE NEGATIVE (NEGATIVE); PH,URINE 5.5 (5.0-8.0); PROTEIN,URINE TRACE mg/dL (NEGATIVE); SPECIFIC GRAVITIY, URINE 1.015 (1.003-1.030); UROBILINOGEN,URINE <=1.0 mg/dL (<=1.0)
[2022-12-06 16:41] LABS: BACTERIA,URINE None Seen /HPF (None Seen); RBC,URINE None Seen /HPF (0-2); SQUAMOUS EPITHELIAL CELL,UR None Seen /LPF (None Seen); WBC,URINE None Seen /HPF (0-5)
[2022-12-06 16:59] LABS: COVID AG,FIA SOURCE NASAL SWAB
[2022-12-06] MEDS ORDERED: HYDROmorphone HCL 2 MG/ML SYRINGE IVP PRN (17:00)
[2022-12-06] MEDS ORDERED: ACETAMINOPHEN 325 MG TABLET PO PRN (17:00)
[2022-12-06] MEDS ORDERED: ONDANSETRON HCL 4 MG/2 ML VIAL IVP PRN (17:00)
[2022-12-06] MEDS ORDERED: LIPA1CAP18 PO (17:05)
[2022-12-06 17:15] LABS: SARS-COV2 (COVID) ANTIGEN,FIA Negative (Negative)
[2022-12-06] MEDS: PANTOPRAZOLE SODIUM 40 MG/VIAL IVP SCH (17:18)
[2022-12-06 17:41] LABS: GLUCOMETER DEV NAME(LOC) ERT.5; GLUCOSE,POINT OF CARE 58 MG/DL (70-110)
[2022-12-06] MEDS ORDERED: SODIUM ZIRCONIUM CYCLOSILICATE 5 GM POWDER PACKET PO ONE (18:45)
[2022-12-06] MEDS: TACROLIMUS 5 MG CAPSULE PO SCH ×2 (21:00→21:20)
[2022-12-06] MEDS: TACROLIMUS 1 MG CAPSULE PO SCH (21:00)
[2022-12-06] MEDS: MethylPREDNISolone SOD SUCC 40 MG/ML VIAL IVP SCH (21:19)
[2022-12-06] MEDS: DiphenhydrAMINE HCL 50 MG/ML VIAL IVP PRN (21:38)
[2022-12-06] MEDS: HEPARIN SODIUM,PORCINE 5,000 UNITS/ML VIAL SQ SCH (23:22)
[2022-12-07 00:33] VITALS: BP 110/67; PULSE 82; RESP 20; TEMP 98
[2022-12-07] MEDS: HYDROmorphone HCL 2 MG/ML SYRINGE IVP PRN ×5 (01:50→21:06)
[2022-12-07] MEDS: DiphenhydrAMINE HCL 50 MG/ML VIAL IVP PRN ×4 (03:31→21:06)
[2022-12-07 04:34] VITALS: BP 107/69; PULSE 73; RESP 20; TEMP 98
[2022-12-07] MEDS ORDERED: HYDROmorphone HCL 2 MG/ML SYRINGE IVP ONE (05:53)
[2022-12-07] MEDS: HEPARIN SODIUM,PORCINE 5,000 UNITS/ML VIAL SQ SCH ×2 (08:00→16:00)
[2022-12-07] MEDS: MethylPREDNISolone SOD SUCC 40 MG/ML VIAL IVP SCH ×2 (09:46→21:00)
[2022-12-07] MEDS: PANTOPRAZOLE SODIUM 40 MG/VIAL IVP SCH (09:46)
[2022-12-07] MEDS: TACROLIMUS 5 MG CAPSULE PO SCH (09:47)
[2022-12-07] MEDS: TACROLIMUS 1 MG CAPSULE PO SCH (09:48)
[2022-12-07 11:30] VITALS: BP 127/77; PULSE 76; RESP 20; TEMP 97.8
[2022-12-07 12:10] LABS: ANION GAP 8 mmol/L (8-16); CALCIUM, TOTAL 8.6 mg/dL (8.8-10.5); CARBON DIOXIDE 21 mmol/L (22-29); CHLORIDE 106 mmol/L (98-107); CREATININE 1.28 mg/dL (0.60-1.30); GLOMERULAR FILTR. RATE CALC > 60 mL/min (>60); GLUCOSE,RANDOM 207 mg/dL (70-110); PHOSPHORUS 3.8 mg/dL (2.5-4.9); SODIUM SERUM 135 mmol/L (136-145); UREA NITROGEN, BLOOD 18 mg/dL (7-18)
[2022-12-07 12:31] LABS: POTASSIUM 6.8 mmol/L (3.5-5.1)
[2022-12-07] MEDS ORDERED: SODIUM POLYSTYRENE SULFONATE 15 GM/60 ML SUSPENSION BOTTLE PR ONE (12:45)
[2022-12-07 14:16] LABS: GLUCOMETER DEV NAME(LOC) 5S.1B; GLUCOSE,POINT OF CARE 158 MG/DL (70-110)
[2022-12-07] MEDS ORDERED: DEXTROSE 50%-WATER 25 GM/50 ML SYRINGE IVP ONE ×2 (14:45→20:30)
[2022-12-07] MEDS ORDERED: SODIUM BICARBONATE [ADULT] 8.4% 50 MEQ/50 ML SYRINGE IVP ONE (14:45)
[2022-12-07] MEDS ORDERED: SODIUM CHLORIDE 0.45% 1,000 ML IV ONE (14:45)
[2022-12-07] MEDS ORDERED: INSULIN REGULAR, HUMAN 100 UNITS/ML IVP ONE ×2 (14:45→20:30)
[2022-12-07] MEDS ORDERED: WATER IV SCH (15:00)
[2022-12-07] MEDS ORDERED: DEXTROSE 5% IV SCH (15:00)
[2022-12-07] MEDS ORDERED: TACROLIMUS ANHYDROUS IV SCH (15:00)
[2022-12-07] MEDS: LORazepam 0.5 MG TABLET PO SCH ×2 (16:04→21:06)
[2022-12-07] MEDS: WATER IV SCH (16:15)
[2022-12-07] MEDS: DEXTROSE 5% IV SCH (16:15)
[2022-12-07] MEDS: TACROLIMUS ANHYDROUS IV SCH (16:15)
[2022-12-07 16:41] LABS: GLUCOMETER DEV NAME(LOC) ERT.5; GLUCOSE,POINT OF CARE 116 MG/DL (70-110)
[2022-12-07 16:41] LABS: GLUCOMETER DEV NAME(LOC) ERT.5; GLUCOSE,POINT OF CARE 95 MG/DL (70-110)
[2022-12-07 17:40] LABS: GLUCOMETER DEV NAME(LOC) 5S.2C; GLUCOSE,POINT OF CARE 260 MG/DL (70-110)
[2022-12-07 19:17] LABS: CALCIUM, TOTAL 8.9 mg/dL (8.8-10.5); CREATININE 1.52 mg/dL (0.60-1.30); POTASSIUM 5.9 mmol/L (3.5-5.1)
[2022-12-07 20:21] LABS: GLUCOMETER DEV NAME(LOC) 5S.2C; GLUCOSE,POINT OF CARE 130 MG/DL (70-110)
[2022-12-07] MEDS ORDERED: CALCIUM GLUCONATE 100 MG/ML 10 ML IVP ONE (20:30)
[2022-12-07] MEDS ORDERED: FUROSEMIDE 20 MG/2 ML VIAL IVP ONE (20:30)
[2022-12-07 20:40] VITALS: BP 128/81; PULSE 99; RESP 18; TEMP 98.2
[2022-12-08 00:07] VITALS: BP 138/85; PULSE 105; RESP 18; TEMP 98.2
[2022-12-08 01:02] LABS: CREATININE 1.52 mg/dL (0.60-1.30); POTASSIUM 5.2 mmol/L (3.5-5.1)
[2022-12-08 02:08] LABS: BASOPHILS % (AUTO) 0.2 % (0.0-2.0); EOSINOPHILS % (AUTO) 0.6 % (1.0-6.0); HEMATOCRIT 30.9 % (41-53); HEMOGLOBIN 10.5 g/dL (13.5-17.5); LYMPHOCYTES # (AUTO) 0.5 K/uL (1.0-4.8); LYMPHOCYTES % (AUTO) 11.1 % (22.0-44.0); MEAN CORPUSCULAR HEMOGLOBIN 31.1 pg (26.0-34.0); MEAN CORPUSCULAR VOLUME 91 fL (80-100); MONOCYTES # (AUTO) 0.4 K/uL (0.1-1.0); MONOCYTES % (AUTO) 9.7 % (2.0-9.0); NEUTROPHILS # (AUTO) 3.3 K/uL (1.8-7.7); NEUTROPHILS % (AUTO) 78.4 % (40.0-70.0); PLATELET COUNT (AUTO) 136 K/uL (150-450); RED BLOOD CELL COUNT(AUTO) 3.38 MIL/uL (4.50-5.90); RED CELL DISTRIBUTION WIDTH 18.8 % (11.5-14.5); WHITE BLOOD COUNT (AUTO) 4.2 K/uL (4.5-11.0)
[2022-12-08] MEDS: OCTREOTIDE ACETATE 500 MCG in SODIUM CHLORIDE 0.9% 97.5 ML IV SCH ×3 (02:57→22:19)
[2022-12-08] MEDS: PANTOPRAZOLE SODIUM 80 MG in SODIUM CHLORIDE 0.9% 100 ML IV SCH ×3 (02:57→22:19)
[2022-12-08] MEDS: DiphenhydrAMINE HCL 50 MG/ML VIAL IVP PRN ×4 (02:58→17:33)
[2022-12-08] MEDS: HYDROmorphone HCL 2 MG/ML SYRINGE IVP PRN ×5 (02:58→21:02)
[2022-12-08 04:45] VITALS: BP 122/88; PULSE 98; RESP 16; TEMP 97.9
[2022-12-08 06:36] LABS: CALCIUM, TOTAL 8.5 mg/dL (8.8-10.5); CREATININE 1.55 mg/dL (0.60-1.30); POTASSIUM 5.5 mmol/L (3.5-5.1)
[2022-12-08 06:43] LABS: MAGNESIUM 1.9 mg/dL (1.80-2.40); PHOSPHORUS 3.7 mg/dL (2.5-4.9)
[2022-12-08 07:42] VITALS: BP 127/85; PULSE 72; RESP 18; TEMP 97.8
[2022-12-08 07:59] LABS: BASOPHILS % (AUTO) 0.3 % (0.0-2.0); EOSINOPHILS % (AUTO) 1.9 % (1.0-6.0); HEMATOCRIT 30.6 % (41-53); HEMOGLOBIN 10.2 g/dL (13.5-17.5); LYMPHOCYTES # (AUTO) 0.6 K/uL (1.0-4.8); LYMPHOCYTES % (AUTO) 16.5 % (22.0-44.0); MEAN CORPUSCULAR HEMOGLOBIN 30.9 pg (26.0-34.0); MEAN CORPUSCULAR HGB CONC 33.4 G/dL (31.0-37.0); MEAN CORPUSCULAR VOLUME 93 fL (80-100); MONOCYTES # (AUTO) 0.3 K/uL (0.1-1.0); MONOCYTES % (AUTO) 9.6 % (2.0-9.0); NEUTROPHILS # (AUTO) 2.6 K/uL (1.8-7.7); NEUTROPHILS % (AUTO) 71.7 % (40.0-70.0); PLATELET COUNT (AUTO) 129 K/uL (150-450); RED CELL DISTRIBUTION WIDTH 18.9 % (11.5-14.5); WHITE BLOOD COUNT (AUTO) 3.6 K/uL (4.5-11.0)
[2022-12-08] MEDS: HEPARIN SODIUM,PORCINE 5,000 UNITS/ML VIAL SQ SCH ×4 (08:00→23:45)
[2022-12-08] MEDS: LORazepam 0.5 MG TABLET PO SCH ×3 (08:34→21:01)
[2022-12-08] MEDS: MethylPREDNISolone SOD SUCC 40 MG/ML VIAL IVP SCH (08:35)
[2022-12-08] MEDS: SODIUM ZIRCONIUM CYCLOSILICATE 5 GM POWDER PACKET PO SCH ×3 (08:36→21:00)
[2022-12-08 14:22] LABS: BASOPHILS % (AUTO) 0.2 % (0.0-2.0); EOSINOPHILS % (AUTO) 0.2 % (1.0-6.0); HEMATOCRIT 27.5 % (41-53); HEMOGLOBIN 9.1 g/dL (13.5-17.5); LYMPHOCYTES # (AUTO) 0.2 K/uL (1.0-4.8); LYMPHOCYTES % (AUTO) 7.4 % (22.0-44.0); MEAN CORPUSCULAR HEMOGLOBIN 30.6 pg (26.0-34.0); MEAN CORPUSCULAR VOLUME 93 fL (80-100); MONOCYTES # (AUTO) 0.1 K/uL (0.1-1.0); MONOCYTES % (AUTO) 1.7 % (2.0-9.0); NEUTROPHILS # (AUTO) 2.9 K/uL (1.8-7.7); PLATELET COUNT (AUTO) 114 K/uL (150-450); RED BLOOD CELL COUNT(AUTO) 2.97 MIL/uL (4.50-5.90); RED CELL DISTRIBUTION WIDTH 18.6 % (11.5-14.5); WHITE BLOOD COUNT (AUTO) 3.2 K/uL (4.5-11.0)
[2022-12-08 14:23] LABS: NEUTROPHILS % (AUTO) 90.5 % (40.0-70.0)
[2022-12-08] MEDS: INSULIN LISPRO 100 UNITS/ML SQ PRN ×2 (14:25→21:35)
[2022-12-08 14:56] LABS: GLUCOMETER DEV NAME(LOC) 5N.2C; GLUCOSE,POINT OF CARE 166 MG/DL (70-110)
[2022-12-08 14:56] LABS: GLUCOMETER DEV NAME(LOC) 5N.2C; GLUCOSE,POINT OF CARE 468 MG/DL (70-110)
[2022-12-08] MEDS: TACROLIMUS ANHYDROUS IV SCH (16:28)
[2022-12-08] MEDS: DEXTROSE 5% IV SCH (16:28)
[2022-12-08] MEDS: WATER IV SCH (16:28)
[2022-12-08] MEDS: DEXTROSE 50%-WATER 25 GM/50 ML SYRINGE IVP PRN (17:49)
[2022-12-08 19:58] VITALS: BP 132/84; PULSE 84; RESP 18; TEMP 98.3
[2022-12-08] MEDS ORDERED: DiphenhydrAMINE HCL 50 MG/ML VIAL IVP ONE (21:00)
[2022-12-08 21:06] LABS: BASOPHILS % (AUTO) 0.5 % (0.0-2.0); EOSINOPHILS % (AUTO) 0.1 % (1.0-6.0); HEMATOCRIT 31.8 % (41-53); HEMOGLOBIN 10.7 g/dL (13.5-17.5); LYMPHOCYTES # (AUTO) 0.4 K/uL (1.0-4.8); LYMPHOCYTES % (AUTO) 10.7 % (22.0-44.0); MEAN CORPUSCULAR HEMOGLOBIN 31.1 pg (26.0-34.0); MEAN CORPUSCULAR HGB CONC 33.7 G/dL (31.0-37.0); MEAN CORPUSCULAR VOLUME 92 fL (80-100); MONOCYTES # (AUTO) 0.2 K/uL (0.1-1.0); MONOCYTES % (AUTO) 5.4 % (2.0-9.0); NEUTROPHILS # (AUTO) 3.5 K/uL (1.8-7.7); NEUTROPHILS % (AUTO) 83.3 % (40.0-70.0); PLATELET COUNT (AUTO) 146 K/uL (150-450); RED BLOOD CELL COUNT(AUTO) 3.45 MIL/uL (4.50-5.90); RED CELL DISTRIBUTION WIDTH 18.2 % (11.5-14.5); WHITE BLOOD COUNT (AUTO) 4.2 K/uL (4.5-11.0)
[2022-12-08 22:41] LABS: GLUCOMETER DEV NAME(LOC) 5S.2C; GLUCOSE,POINT OF CARE 238 MG/DL (70-110)
[2022-12-08 22:41] LABS: GLUCOMETER DEV NAME(LOC) 5S.2C; GLUCOSE,POINT OF CARE 69 MG/DL (70-110)
[2022-12-09] MEDS: DiphenhydrAMINE HCL 50 MG/ML VIAL IVP PRN ×4 (01:37→20:07)
[2022-12-09] MEDS: HYDROmorphone HCL 2 MG/ML SYRINGE IVP PRN ×5 (01:37→20:08)
[2022-12-09] MEDS ORDERED: DiphenhydrAMINE HCL 50 MG/ML VIAL IVP ONE ×2 (03:45→23:45)
[2022-12-09] MEDS: INSULIN LISPRO 100 UNITS/ML SQ PRN ×3 (06:23→21:05)
[2022-12-09] MEDS: HEPARIN SODIUM,PORCINE 5,000 UNITS/ML VIAL SQ SCH ×3 (08:00→23:53)
[2022-12-09 08:09] LABS: BASOPHILS % (AUTO) 0.9 % (0.0-2.0); EOSINOPHILS % (AUTO) 1.1 % (1.0-6.0); HEMATOCRIT 30.4 % (41-53); HEMOGLOBIN 10.3 g/dL (13.5-17.5); LYMPHOCYTES # (AUTO) 0.7 K/uL (1.0-4.8); LYMPHOCYTES % (AUTO) 20.2 % (22.0-44.0); MEAN CORPUSCULAR HEMOGLOBIN 31.3 pg (26.0-34.0); MEAN CORPUSCULAR HGB CONC 33.8 G/dL (31.0-37.0); MEAN CORPUSCULAR VOLUME 92 fL (80-100); MONOCYTES # (AUTO) 0.4 K/uL (0.1-1.0); MONOCYTES % (AUTO) 10.4 % (2.0-9.0); NEUTROPHILS # (AUTO) 2.3 K/uL (1.8-7.7); NEUTROPHILS % (AUTO) 67.4 % (40.0-70.0); PLATELET COUNT (AUTO) 132 K/uL (150-450); RED BLOOD CELL COUNT(AUTO) 3.29 MIL/uL (4.50-5.90); RED CELL DISTRIBUTION WIDTH 18.6 % (11.5-14.5); WHITE BLOOD COUNT (AUTO) 3.4 K/uL (4.5-11.0)
[2022-12-09] MEDS: OCTREOTIDE ACETATE 500 MCG in SODIUM CHLORIDE 0.9% 97.5 ML IV SCH ×2 (08:21→21:08)
[2022-12-09] MEDS: PANTOPRAZOLE SODIUM 80 MG in SODIUM CHLORIDE 0.9% 100 ML IV SCH ×2 (08:29→21:08)
[2022-12-09 08:32] LABS: CALCIUM, TOTAL 8.5 mg/dL (8.8-10.5); CREATININE 1.81 mg/dL (0.60-1.30); PHOSPHORUS 4.2 mg/dL (2.5-4.9)
[2022-12-09] MEDS: LORazepam 0.5 MG TABLET PO SCH ×3 (08:43→21:08)
[2022-12-09] MEDS: SODIUM ZIRCONIUM CYCLOSILICATE 5 GM POWDER PACKET PO SCH ×4 (08:46→20:15)
[2022-12-09] MEDS: MethylPREDNISolone SOD SUCC 40 MG/ML VIAL IVP SCH (08:52)
[2022-12-09] MEDS ORDERED: SODIUM CHLORIDE 0.45% 1,000 ML IV SCH (09:15)
[2022-12-09] MEDS ORDERED: DEXTROSE 50%-WATER 25 GM/50 ML SYRINGE IVP ONE ×3 (09:15→18:30)
[2022-12-09] MEDS ORDERED: INSULIN REGULAR, HUMAN 100 UNITS/ML IVP ONE ×2 (09:15→18:30)
[2022-12-09 11:33] VITALS: BP 143/87; PULSE 118; RESP 17; TEMP 98.2
[2022-12-09 11:41] LABS: GLUCOMETER DEV NAME(LOC) 5N.2C; GLUCOSE,POINT OF CARE 213 MG/DL (70-110)
[2022-12-09 11:44] LABS: BASOPHILS % (AUTO) 0.3 % (0.0-2.0); EOSINOPHILS % (AUTO) 0.2 % (1.0-6.0); HEMOGLOBIN 11.3 g/dL (13.5-17.5); LYMPHOCYTES # (AUTO) 0.4 K/uL (1.0-4.8); LYMPHOCYTES % (AUTO) 6.4 % (22.0-44.0); MEAN CORPUSCULAR HEMOGLOBIN 30.7 pg (26.0-34.0); MEAN CORPUSCULAR HGB CONC 33.4 G/dL (31.0-37.0); MEAN CORPUSCULAR VOLUME 92 fL (80-100); MONOCYTES # (AUTO) 0.2 K/uL (0.1-1.0); MONOCYTES % (AUTO) 4.3 % (2.0-9.0); NEUTROPHILS # (AUTO) 5.1 K/uL (1.8-7.7); PLATELET COUNT (AUTO) 165 K/uL (150-450); RED BLOOD CELL COUNT(AUTO) 3.69 MIL/uL (4.50-5.90); RED CELL DISTRIBUTION WIDTH 18.7 % (11.5-14.5); WHITE BLOOD COUNT (AUTO) 5.7 K/uL (4.5-11.0)
[2022-12-09 11:48] LABS: NEUTROPHILS % (AUTO) 88.8 % (40.0-70.0)
[2022-12-09] MEDS: ALBUTEROL SULFATE 2.5 MG/0.5 ML NEB SOLUTION NEB SCH ×2 (14:00→20:00)
[2022-12-09] MEDS: DEXTROSE 5% IV SCH (15:49)
[2022-12-09] MEDS: WATER IV SCH (15:49)
[2022-12-09] MEDS: TACROLIMUS ANHYDROUS IV SCH (15:49)
[2022-12-09 16:00] VITALS: BP 141/92; PULSE 74; RESP 18; TEMP 98.2
[2022-12-09 17:11] LABS: GLUCOMETER DEV NAME(LOC) 5S.2C; GLUCOSE,POINT OF CARE 105 MG/DL (70-110)
[2022-12-09 17:11] LABS: GLUCOMETER DEV NAME(LOC) 5S.2C; GLUCOSE,POINT OF CARE 89 MG/DL (70-110)
[2022-12-09 17:49] LABS: BASOPHILS % (AUTO) 0.1 % (0.0-2.0); EOSINOPHILS % (AUTO) 0 % (1.0-6.0); HEMATOCRIT 29.6 % (41-53); HEMOGLOBIN 9.9 g/dL (13.5-17.5); LYMPHOCYTES # (AUTO) 0.2 K/uL (1.0-4.8); LYMPHOCYTES % (AUTO) 5.9 % (22.0-44.0); MEAN CORPUSCULAR HEMOGLOBIN 30.7 pg (26.0-34.0); MEAN CORPUSCULAR HGB CONC 33.5 G/dL (31.0-37.0); MEAN CORPUSCULAR VOLUME 92 fL (80-100); MONOCYTES # (AUTO) 0.1 K/uL (0.1-1.0); MONOCYTES % (AUTO) 2.1 % (2.0-9.0); NEUTROPHILS # (AUTO) 2.8 K/uL (1.8-7.7); PLATELET COUNT (AUTO) 130 K/uL (150-450); RED BLOOD CELL COUNT(AUTO) 3.23 MIL/uL (4.50-5.90)
[2022-12-09 17:50] LABS: NEUTROPHILS % (AUTO) 91.9 % (40.0-70.0)
[2022-12-09 18:06] LABS: RBC MORPHOLOGY COMMENT NORMAL RBC MORPH
[2022-12-09] MEDS ORDERED: DEXTROSE 5% IV PRN (18:30)
[2022-12-09] MEDS ORDERED: SODIUM ZIRCONIUM CYCLOSILICATE 5 GM POWDER PACKET PO ONE (18:30)
[2022-12-09] MEDS ORDERED: ALBUTEROL SULFATE 2.5 MG/0.5 ML NEB SOLUTION NEB ONE (18:30)
[2022-12-09] MEDS ORDERED: CALCIUM GLUCONATE IV PRN (18:30)
[2022-12-09] MEDS ORDERED: SODIUM BICARBONATE [ADULT] 8.4% 50 MEQ/50 ML SYRINGE IVP ONE (18:30)
[2022-12-09] MEDS ORDERED: WATER IV PRN (18:30)
[2022-12-09] MEDS ORDERED: ALBUTEROL SULFATE 2.5 MG/0.5 ML 5 ML NEB SOLUTION NEB ONE (19:15)
[2022-12-09] MEDS ORDERED: CALCIUM GLUCONATE 100 MG/ML 10 ML IVP ONE (19:15)
[2022-12-09 20:11] VITALS: BP 145/88; PULSE 117; RESP 18; TEMP 98.4
[2022-12-09 22:06] LABS: CALCIUM, TOTAL 8.6 mg/dL (8.8-10.5); CREATININE 2.31 mg/dL (0.60-1.30)
[2022-12-09] MEDS: DEXTROSE 50%-WATER 25 GM/50 ML SYRINGE IVP PRN (23:02)
[2022-12-09] MEDS: DEXTROSE 5%-0.45% SODIUM CHL 1,000 ML IV SCH (23:03)
[2022-12-09] MEDS ORDERED: HYDROmorphone HCL 2 MG/ML SYRINGE IVP ONE (23:45)
[2022-12-10] VITALS: BP 142/87; PULSE 105; RESP 17; TEMP 98.1
[2022-12-10 00:16] LABS: GLUCOMETER DEV NAME(LOC) 5N.2C; GLUCOSE,POINT OF CARE 188 MG/DL (70-110)
[2022-12-10 00:16] LABS: GLUCOMETER DEV NAME(LOC) 5N.2C; GLUCOSE,POINT OF CARE 30 MG/DL (70-110)
[2022-12-10 00:31] LABS: BASOPHILS % (AUTO) 0.7 % (0.0-2.0); EOSINOPHILS % (AUTO) 0.3 % (1.0-6.0); HEMOGLOBIN 9.9 g/dL (13.5-17.5); LYMPHOCYTES # (AUTO) 0.4 K/uL (1.0-4.8); LYMPHOCYTES % (AUTO) 10.3 % (22.0-44.0); MEAN CORPUSCULAR HGB CONC 34.2 G/dL (31.0-37.0); MEAN CORPUSCULAR VOLUME 91 fL (80-100); MONOCYTES # (AUTO) 0.4 K/uL (0.1-1.0); MONOCYTES % (AUTO) 9.3 % (2.0-9.0); NEUTROPHILS # (AUTO) 3.1 K/uL (1.8-7.7); NEUTROPHILS % (AUTO) 79.4 % (40.0-70.0); PLATELET COUNT (AUTO) 133 K/uL (150-450); RED BLOOD CELL COUNT(AUTO) 3.19 MIL/uL (4.50-5.90); RED CELL DISTRIBUTION WIDTH 17.7 % (11.5-14.5)
[2022-12-10 00:42] LABS: TROPONIN I-HIGH SENSITIVITY Less Than 4 ng/L (<76)
[2022-12-10 00:56] LABS: GLUCOMETER DEV NAME(LOC) 4E.2; GLUCOSE,POINT OF CARE 349 MG/DL (70-110)
[2022-12-10] MEDS: ALBUTEROL SULFATE 2.5 MG/0.5 ML NEB SOLUTION NEB SCH ×4 (02:00→20:00)
[2022-12-10] MEDS: HYDROmorphone HCL 2 MG/ML SYRINGE IVP PRN ×4 (02:38→21:20)
[2022-12-10] MEDS: DiphenhydrAMINE HCL 50 MG/ML VIAL IVP PRN ×4 (02:38→21:21)
[2022-12-10 02:56] LABS: GLUCOMETER DEV NAME(LOC) 5S.2C; GLUCOSE,POINT OF CARE 249 MG/DL (70-110)
[2022-12-10 03:01] LABS: GLUCOMETER DEV NAME(LOC) 5S.2C; GLUCOSE,POINT OF CARE 323 MG/DL (70-110)
[2022-12-10 03:01] LABS: GLUCOMETER DEV NAME(LOC) 5S.2C; GLUCOSE,POINT OF CARE 234 MG/DL (70-110)
[2022-12-10 03:01] LABS: GLUCOMETER DEV NAME(LOC) 5S.2C; GLUCOSE,POINT OF CARE 104 MG/DL (70-110)
[2022-12-10 03:47] LABS: TROPONIN I-HIGH SENSITIVITY 4 ng/L (<76)
[2022-12-10 04:00] VITALS: BP 145/86; PULSE 87; RESP 17; TEMP 98.1
[2022-12-10] MEDS: INSULIN LISPRO 100 UNITS/ML SQ PRN ×2 (05:51→21:25)
[2022-12-10] MEDS: PANTOPRAZOLE SODIUM 80 MG in SODIUM CHLORIDE 0.9% 100 ML IV SCH ×2 (06:44→14:39)
[2022-12-10] MEDS: OCTREOTIDE ACETATE 500 MCG in SODIUM CHLORIDE 0.9% 97.5 ML IV SCH ×2 (06:44→14:39)
[2022-12-10 06:57] LABS: BASOPHILS % (AUTO) 0.2 % (0.0-2.0); EOSINOPHILS % (AUTO) 0.8 % (1.0-6.0); HEMATOCRIT 30.6 % (41-53); HEMOGLOBIN 10.4 g/dL (13.5-17.5); LYMPHOCYTES # (AUTO) 0.6 K/uL (1.0-4.8); LYMPHOCYTES % (AUTO) 15.1 % (22.0-44.0); MEAN CORPUSCULAR HEMOGLOBIN 30.9 pg (26.0-34.0); MEAN CORPUSCULAR HGB CONC 33.8 G/dL (31.0-37.0); MEAN CORPUSCULAR VOLUME 91 fL (80-100); MONOCYTES # (AUTO) 0.4 K/uL (0.1-1.0); MONOCYTES % (AUTO) 9.5 % (2.0-9.0); NEUTROPHILS # (AUTO) 2.9 K/uL (1.8-7.7); NEUTROPHILS % (AUTO) 74.4 % (40.0-70.0); PLATELET COUNT (AUTO) 132 K/uL (150-450); RED BLOOD CELL COUNT(AUTO) 3.35 MIL/uL (4.50-5.90); WHITE BLOOD COUNT (AUTO) 3.9 K/uL (4.5-11.0)
[2022-12-10 07:46] LABS: GLUCOMETER DEV NAME(LOC) 5S.2C; GLUCOSE,POINT OF CARE 326 MG/DL (70-110)
[2022-12-10 07:48] LABS: CALCIUM, TOTAL 8.1 mg/dL (8.8-10.5); CREATININE 1.91 mg/dL (0.60-1.30); POTASSIUM 5.9 mmol/L (3.5-5.1)
[2022-12-10] MEDS: HEPARIN SODIUM,PORCINE 5,000 UNITS/ML VIAL SQ SCH ×2 (08:00→15:36)
[2022-12-10] MEDS ORDERED: ALBUTEROL SULFATE 2.5 MG/0.5 ML NEB SOLUTION NEB SCH (08:15)
[2022-12-10] MEDS ORDERED: CALCIUM GLUCONATE 100 MG/ML 10 ML IVP ONE (08:15)
[2022-12-10] MEDS ORDERED: SODIUM CHLORIDE 0.9% 1,000 ML ONE (08:27)
[2022-12-10 08:51] LABS: MAGNESIUM 1.7 mg/dL (1.80-2.40); PHOSPHORUS 4.4 mg/dL (2.5-4.9)
[2022-12-10] MEDS: MethylPREDNISolone SOD SUCC 40 MG/ML VIAL IVP SCH (08:57)
[2022-12-10] MEDS: SODIUM ZIRCONIUM CYCLOSILICATE 5 GM POWDER PACKET PO SCH (09:00)
[2022-12-10] MEDS: LORazepam 0.5 MG TABLET PO SCH ×3 (09:00→20:32)
[2022-12-10] MEDS: DEXTROSE 5%-0.45% SODIUM CHL 1,000 ML IV SCH ×2 (09:16→15:36)
[2022-12-10] MEDS ORDERED: SODIUM CHLORIDE 0.9% 1,000 ML IV ONE (09:30)
[2022-12-10] MEDS ORDERED: INSULIN REGULAR, HUMAN 100 UNITS/ML IV ONE (09:41)
[2022-12-10] MEDS ORDERED: DEXTROSE 50%-WATER 25 GM/50 ML SYRINGE IVP ONE ×3 (09:41→12:14)
[2022-12-10] MEDS ORDERED: INSULIN HUMAN NPH-REGULAR 70/30 100 UNITS/ML SQ ONE (09:52)
[2022-12-10] MEDS ORDERED: MIDAZOLAM HCL 5 MG/ML VIAL ONE (10:03)
[2022-12-10] MEDS ORDERED: FentaNYL CITRATE PF 100 MCG/2 ML VIAL ONE (10:03)
[2022-12-10] MEDS: INSULIN LISPRO 100 UNITS/ML SQ SCH ×2 (11:00→17:53)
[2022-12-10] MEDS ORDERED: DiphenhydrAMINE HCL 50 MG/ML VIAL ONE (11:10)
[2022-12-10] MEDS: DEXTROSE 50%-WATER 25 GM/50 ML SYRINGE IVP PRN (12:15)
[2022-12-10] MEDS: SODIUM CHLORIDE 0.45% 1,000 ML IV SCH (13:10)
[2022-12-10] MEDS: PredniSONE 5 MG TABLET PO SCH (13:10)
[2022-12-10 13:28] LABS: CALCIUM, TOTAL 8.4 mg/dL (8.8-10.5); CREATININE 1.81 mg/dL (0.60-1.30); PHOSPHORUS 3.6 mg/dL (2.5-4.9); POTASSIUM 4.7 mmol/L (3.5-5.1)
[2022-12-10 15:16] VITALS: BP 153/87; PULSE 87; RESP 18; TEMP 98.2
[2022-12-10] MEDS: DEXTROSE 5% IV SCH (15:24)
[2022-12-10] MEDS: WATER IV SCH (15:24)
[2022-12-10] MEDS: TACROLIMUS ANHYDROUS IV SCH (15:24)
[2022-12-10 20:44] VITALS: BP 150/90; PULSE 69; RESP 18; TEMP 98.2
[2022-12-10 23:26] LABS: GLUCOMETER DEV NAME(LOC) 5N.2C; GLUCOSE,POINT OF CARE 488 MG/DL (70-110)
[2022-12-10 23:26] LABS: GLUCOMETER DEV NAME(LOC) 5N.2C; GLUCOSE,POINT OF CARE 338 MG/DL (70-110)
[2022-12-11 00:33] VITALS: BP 143/88; PULSE 95; RESP 19; TEMP 97.7
[2022-12-11] MEDS: DEXTROSE 5%-0.45% SODIUM CHL 1,000 ML IV SCH ×3 (00:35→16:58)
[2022-12-11] MEDS: PANTOPRAZOLE SODIUM 80 MG in SODIUM CHLORIDE 0.9% 100 ML IV SCH ×2 (00:45→10:56)
[2022-12-11] MEDS: OCTREOTIDE ACETATE 500 MCG in SODIUM CHLORIDE 0.9% 97.5 ML IV SCH ×2 (00:46→10:56)
[2022-12-11] MEDS: SODIUM CHLORIDE 0.45% 1,000 ML IV SCH ×2 (01:18→16:57)
[2022-12-11] MEDS: ALBUTEROL SULFATE 2.5 MG/0.5 ML NEB SOLUTION NEB SCH ×4 (01:29→20:00)
[2022-12-11] MEDS: DiphenhydrAMINE HCL 50 MG/ML VIAL IVP PRN ×3 (03:03→16:56)
[2022-12-11] MEDS: HYDROmorphone HCL 2 MG/ML SYRINGE IVP PRN ×3 (03:04→16:57)
[2022-12-11 05:06] LABS: GLUCOMETER DEV NAME(LOC) SDS.; GLUCOSE,POINT OF CARE 50 MG/DL (70-110)
[2022-12-11 05:06] LABS: GLUCOMETER DEV NAME(LOC) SDS.; GLUCOSE,POINT OF CARE 202 MG/DL (70-110)
[2022-12-11 06:01] LABS: CALCIUM, TOTAL 8.5 mg/dL (8.8-10.5); CREATININE 1.84 mg/dL (0.60-1.30); MAGNESIUM 1.6 mg/dL (1.80-2.40); PHOSPHORUS 4.2 mg/dL (2.5-4.9); POTASSIUM 5.7 mmol/L (3.5-5.1)
[2022-12-11 06:04] VITALS: BP 118/75; PULSE 80; RESP 19; TEMP 97.8
[2022-12-11] MEDS: INSULIN LISPRO 100 UNITS/ML SQ SCH ×2 (06:22→17:30)
[2022-12-11 07:36] VITALS: BP 139/86; PULSE 69; RESP 18; TEMP 97.9
[2022-12-11] MEDS: HEPARIN SODIUM,PORCINE 5,000 UNITS/ML VIAL SQ SCH ×3 (08:00→16:00)
[2022-12-11] MEDS ORDERED: DEXTROSE 50%-WATER 25 GM/50 ML SYRINGE IVP ONE (08:45)
[2022-12-11] MEDS ORDERED: IPRATROPIUM BROMIDE 0.5 MG/2.5 ML NEB SOLUTION NEB SCH (08:45)
[2022-12-11] MEDS ORDERED: SODIUM BICARBONATE [ADULT] 8.4% 50 MEQ/50 ML SYRINGE IVP ONE (08:45)
[2022-12-11] MEDS ORDERED: MAGNESIUM SULFATE 1 GM in DEXTROSE 5%-WATER 50 ML IV ONE (08:45)
[2022-12-11] MEDS ORDERED: INSULIN REGULAR, HUMAN 100 UNITS/ML SQ ONE (08:45)
[2022-12-11] MEDS: MethylPREDNISolone SOD SUCC 40 MG/ML VIAL IVP SCH (09:23)
[2022-12-11] MEDS: SODIUM ZIRCONIUM CYCLOSILICATE 5 GM POWDER PACKET PO SCH (09:23)
[2022-12-11] MEDS: LORazepam 0.5 MG TABLET PO SCH ×3 (09:24→21:33)
[2022-12-11] MEDS: PredniSONE 5 MG TABLET PO SCH (09:24)
[2022-12-11] MEDS: INSULIN LISPRO 100 UNITS/ML SQ PRN (11:55)
[2022-12-11 12:26] LABS: GLUCOMETER DEV NAME(LOC) 5N.2C; GLUCOSE,POINT OF CARE 299 MG/DL (70-110)
[2022-12-11] MEDS ORDERED: IPRATROPIUM BROMIDE 0.5 MG/2.5 ML NEB SOLUTION NEB ONE (13:45)
[2022-12-11] MEDS: DEXTROSE 5% IV SCH (16:58)
[2022-12-11] MEDS: WATER IV SCH (16:58)
[2022-12-11] MEDS: TACROLIMUS ANHYDROUS IV SCH (16:58)
[2022-12-11 17:06] LABS: GLUCOMETER DEV NAME(LOC) 5S.2C; GLUCOSE,POINT OF CARE 242 MG/DL (70-110)
[2022-12-11 18:16] LABS: GLUCOMETER DEV NAME(LOC) 5S.2C; GLUCOSE,POINT OF CARE 97 MG/DL (70-110)
[2022-12-11 19:42] VITALS: BP 137/86; PULSE 85; RESP 19; TEMP 98.1
[2022-12-11] MEDS: PANTOPRAZOLE SODIUM 40 MG DR TABLET PO SCH (21:33)
[2022-12-12] MEDS: DiphenhydrAMINE HCL 50 MG/ML VIAL IVP PRN ×5 (00:47→18:48)
[2022-12-12] MEDS: HYDROmorphone HCL 2 MG/ML SYRINGE IVP PRN ×5 (00:47→18:47)
[2022-12-12 00:50] VITALS: BP 144/89; PULSE 76; RESP 18; TEMP 98.2
[2022-12-12] MEDS: ALBUTEROL SULFATE 2.5 MG/0.5 ML NEB SOLUTION NEB SCH ×4 (02:00→20:00)
[2022-12-12 05:42] VITALS: BP 123/78; PULSE 68; RESP 18; TEMP 97.8
[2022-12-12 05:51] LABS: GLUCOMETER DEV NAME(LOC) 5S.2C; GLUCOSE,POINT OF CARE 410 MG/DL (70-110)
[2022-12-12] MEDS: INSULIN LISPRO 100 UNITS/ML SQ PRN ×2 (05:58→11:35)
[2022-12-12] MEDS: INSULIN LISPRO 100 UNITS/ML SQ SCH ×2 (06:01→17:33)
[2022-12-12] MEDS: HEPARIN SODIUM,PORCINE 5,000 UNITS/ML VIAL SQ SCH ×4 (08:00→23:10)
[2022-12-12 08:06] LABS: CALCIUM, TOTAL 8.2 mg/dL (8.8-10.5); CREATININE 2.08 mg/dL (0.60-1.30); MAGNESIUM 1.7 mg/dL (1.80-2.40); PHOSPHORUS 3.9 mg/dL (2.5-4.9); POTASSIUM 5.3 mmol/L (3.5-5.1)
[2022-12-12] MEDS: DEXTROSE 5%-0.45% SODIUM CHL 1,000 ML IV SCH ×3 (08:35→17:27)
[2022-12-12] MEDS: MethylPREDNISolone SOD SUCC 40 MG/ML VIAL IVP SCH (08:35)
[2022-12-12] MEDS: PANTOPRAZOLE SODIUM 40 MG DR TABLET PO SCH (08:36)
[2022-12-12] MEDS: PredniSONE 5 MG TABLET PO SCH (08:36)
[2022-12-12] MEDS: SODIUM ZIRCONIUM CYCLOSILICATE 5 GM POWDER PACKET PO SCH (08:37)
[2022-12-12] MEDS: LORazepam 0.5 MG TABLET PO SCH ×3 (08:37→21:03)
[2022-12-12 12:25] VITALS: BP 139/86; PULSE 115; RESP 19; TEMP 98.1
[2022-12-12] MEDS: DEXTROSE 5% IV SCH ×2 (14:24→15:26)
[2022-12-12] MEDS: TACROLIMUS ANHYDROUS IV SCH ×2 (14:24→15:26)
[2022-12-12] MEDS: WATER IV SCH ×2 (14:24→15:26)
[2022-12-12 15:29] VITALS: BP 148/93; PULSE 116; RESP 19; TEMP 98
[2022-12-12 17:36] LABS: GLUCOMETER DEV NAME(LOC) 5N.2C; GLUCOSE,POINT OF CARE 428 MG/DL (70-110)
[2022-12-12 18:41] LABS: GLUCOMETER DEV NAME(LOC) 5S.1B; GLUCOSE,POINT OF CARE 378 MG/DL (70-110)
[2022-12-12 19:59] VITALS: BP 137/87; PULSE 100; RESP 18; TEMP 98.2
[2022-12-12] MEDS: PANTOPRAZOLE SODIUM 40 MG/VIAL IVP SCH (21:03)
[2022-12-13] MEDS: DEXTROSE 5%-0.45% SODIUM CHL 1,000 ML IV SCH ×2 (01:25→07:59)
[2022-12-13] MEDS: ALBUTEROL SULFATE 2.5 MG/0.5 ML NEB SOLUTION NEB SCH ×4 (01:39→20:00)
[2022-12-13] MEDS: DiphenhydrAMINE HCL 50 MG/ML VIAL IVP PRN ×4 (02:51→18:48)
[2022-12-13] MEDS: HYDROmorphone HCL 2 MG/ML SYRINGE IVP PRN ×4 (02:51→18:49)
[2022-12-13] MEDS: INSULIN LISPRO 100 UNITS/ML SQ SCH ×2 (05:37→20:37)
[2022-12-13 07:31] LABS: GLUCOMETER DEV NAME(LOC) 5S.2C; GLUCOSE,POINT OF CARE 378 MG/DL (70-110)
[2022-12-13 07:32] VITALS: BP 133/85; PULSE 92; RESP 20; TEMP 98.5
[2022-12-13 07:37] LABS: CALCIUM, TOTAL 7.9 mg/dL (8.8-10.5); CREATININE 1.83 mg/dL (0.60-1.30); MAGNESIUM 1.8 mg/dL (1.80-2.40); PHOSPHORUS 3.5 mg/dL (2.5-4.9); POTASSIUM 4.4 mmol/L (3.5-5.1)
[2022-12-13] MEDS: HEPARIN SODIUM,PORCINE 5,000 UNITS/ML VIAL SQ SCH ×3 (07:58→23:14)
[2022-12-13] MEDS: PANTOPRAZOLE SODIUM 40 MG/VIAL IVP SCH ×2 (07:59→20:36)
[2022-12-13] MEDS: LORazepam 0.5 MG TABLET PO SCH ×3 (08:01→20:36)
[2022-12-13] MEDS: PredniSONE 5 MG TABLET PO SCH (08:01)
[2022-12-13] MEDS: SODIUM ZIRCONIUM CYCLOSILICATE 5 GM POWDER PACKET PO SCH (08:01)
[2022-12-13] MEDS: INSULIN LISPRO 100 UNITS/ML SQ PRN ×2 (11:06→20:38)
[2022-12-13 12:32] LABS: OCCULT BLOOD,GASTRIC FLUID POSITIVE (NEGATIVE); PH, GASTRIC OKAY
[2022-12-13] MEDS: SODIUM CHLORIDE 0.45% 1,000 ML IV SCH (12:43)
[2022-12-13 14:30] VITALS: BP 112/74; PULSE 107; RESP 20; TEMP 98.2
[2022-12-13] MEDS: DEXTROSE 5% IV SCH (16:24)
[2022-12-13] MEDS: WATER IV SCH (16:24)
[2022-12-13] MEDS: TACROLIMUS ANHYDROUS IV SCH (16:24)
[2022-12-13 20:51] VITALS: BP 127/80; PULSE 84; RESP 18; TEMP 97.9
[2022-12-14 00:03] VITALS: BP 143/81; PULSE 80; RESP 18; TEMP 98.1
[2022-12-14] MEDS: ALBUTEROL SULFATE 2.5 MG/0.5 ML NEB SOLUTION NEB SCH ×4 (02:00→19:54)
[2022-12-14 03:02] LABS: GLUCOMETER DEV NAME(LOC) 5S.1B; GLUCOSE,POINT OF CARE 317 MG/DL (70-110)
[2022-12-14 03:02] LABS: GLUCOMETER DEV NAME(LOC) 5S.1B; GLUCOSE,POINT OF CARE 264 MG/DL (70-110)
[2022-12-14 06:21] LABS: GLUCOMETER DEV NAME(LOC) 5S.2C; GLUCOSE,POINT OF CARE 209 MG/DL (70-110)
[2022-12-14] MEDS: INSULIN LISPRO 100 UNITS/ML SQ SCH ×2 (06:30→17:30)
[2022-12-14 07:11] LABS: BASOPHILS % (AUTO) 0.2 % (0.0-2.0); HEMATOCRIT 28.5 % (41-53); HEMOGLOBIN 9.9 g/dL (13.5-17.5); LYMPHOCYTES # (AUTO) 0.7 K/uL (1.0-4.8); LYMPHOCYTES % (AUTO) 22.9 % (22.0-44.0); MEAN CORPUSCULAR HEMOGLOBIN 31.5 pg (26.0-34.0); MEAN CORPUSCULAR HGB CONC 34.9 G/dL (31.0-37.0); MEAN CORPUSCULAR VOLUME 90 fL (80-100); MONOCYTES # (AUTO) 0.2 K/uL (0.1-1.0); MONOCYTES % (AUTO) 6.8 % (2.0-9.0); NEUTROPHILS # (AUTO) 2.1 K/uL (1.8-7.7); NEUTROPHILS % (AUTO) 66.1 % (40.0-70.0); PLATELET COUNT (AUTO) 138 K/uL (150-450); RED BLOOD CELL COUNT(AUTO) 3.15 MIL/uL (4.50-5.90); WHITE BLOOD COUNT (AUTO) 3.2 K/uL (4.5-11.0)
[2022-12-14 07:35] LABS: POTASSIUM 4.3 mmol/L (3.5-5.1)
[2022-12-14 07:36] LABS: CALCIUM, TOTAL 8.4 mg/dL (8.8-10.5); CREATININE 1.55 mg/dL (0.60-1.30)
[2022-12-14] MEDS: HEPARIN SODIUM,PORCINE 5,000 UNITS/ML VIAL SQ SCH (08:00)
[2022-12-14] MEDS: PANTOPRAZOLE SODIUM 40 MG/VIAL IVP SCH ×2 (09:00→20:28)
[2022-12-14] MEDS: DiphenhydrAMINE HCL 50 MG/ML VIAL IVP PRN ×2 (10:20→12:42)
[2022-12-14] MEDS: SODIUM ZIRCONIUM CYCLOSILICATE 5 GM POWDER PACKET PO SCH (10:20)
[2022-12-14] MEDS: PredniSONE 5 MG TABLET PO SCH (10:20)
[2022-12-14] MEDS: LORazepam 0.5 MG TABLET PO SCH ×3 (10:20→20:28)
[2022-12-14] MEDS: SODIUM CHLORIDE 0.45% 1,000 ML IV SCH (10:22)
[2022-12-14 11:47] VITALS: BP 120/80; PULSE 111; RESP 20; TEMP 97.8
[2022-12-14] MEDS: HYDROmorphone HCL 2 MG/ML SYRINGE IVP PRN (12:42)
[2022-12-14] MEDS ORDERED: ONDANSETRON HCL 4 MG/2 ML VIAL IVP PRN (13:00)
[2022-12-14 14:11] LABS: GLUCOMETER DEV NAME(LOC) 5N.2C; GLUCOSE,POINT OF CARE 176 MG/DL (70-110)
[2022-12-14 14:41] LABS: HEMATOCRIT 27.5 % (41-53); HEMOGLOBIN 9.4 g/dL (13.5-17.5)
[2022-12-14] MEDS: DEXTROSE 5% IV SCH (15:21)
[2022-12-14] MEDS: TACROLIMUS ANHYDROUS IV SCH (15:21)
[2022-12-14] MEDS: WATER IV SCH (15:21)
[2022-12-14] MEDS: PROMETHAZINE HCL 25 MG RECTAL SUPPOSITORY PR SCH (16:00)
[2022-12-14 20:10] VITALS: BP 101/77; PULSE 112; RESP 18; TEMP 97.9
[2022-12-14 20:26] LABS: GLUCOMETER DEV NAME(LOC) 5N.1C; GLUCOSE,POINT OF CARE 287 MG/DL (70-110)
[2022-12-14 20:49] LABS: HEMATOCRIT 27.2 % (41-53); HEMOGLOBIN 9.2 g/dL (13.5-17.5)
[2022-12-14 22:51] LABS: GLUCOMETER DEV NAME(LOC) 5N.2C; GLUCOSE,POINT OF CARE 222 MG/DL (70-110)
[2022-12-15] MEDS: DiphenhydrAMINE HCL 50 MG/ML VIAL IVP PRN ×2 (00:08→14:28)
[2022-12-15] MEDS: HYDROmorphone HCL 2 MG/ML SYRINGE IVP PRN ×3 (00:08→14:28)
[2022-12-15] MEDS: ALBUTEROL SULFATE 2.5 MG/0.5 ML NEB SOLUTION NEB SCH ×3 (02:00→14:00)
[2022-12-15 02:59] LABS: BASOPHILS % (AUTO) 0.3 % (0.0-2.0); EOSINOPHILS % (AUTO) 5.4 % (1.0-6.0); HEMATOCRIT 26.4 % (41-53); HEMOGLOBIN 8.9 g/dL (13.5-17.5); LYMPHOCYTES # (AUTO) 0.8 K/uL (1.0-4.8); LYMPHOCYTES % (AUTO) 23.6 % (22.0-44.0); MEAN CORPUSCULAR HEMOGLOBIN 30.6 pg (26.0-34.0); MEAN CORPUSCULAR HGB CONC 33.8 G/dL (31.0-37.0); MEAN CORPUSCULAR VOLUME 91 fL (80-100); MONOCYTES # (AUTO) 0.3 K/uL (0.1-1.0); MONOCYTES % (AUTO) 7.7 % (2.0-9.0); NEUTROPHILS # (AUTO) 2.2 K/uL (1.8-7.7); PLATELET COUNT (AUTO) 119 K/uL (150-450); RED BLOOD CELL COUNT(AUTO) 2.91 MIL/uL (4.50-5.90); RED CELL DISTRIBUTION WIDTH 17.1 % (11.5-14.5); WHITE BLOOD COUNT (AUTO) 3.5 K/uL (4.5-11.0)
[2022-12-15] MEDS: SODIUM CHLORIDE 0.45% 1,000 ML IV SCH (04:38)
[2022-12-15] MEDS ORDERED: FentaNYL CITRATE PF 100 MCG/2 ML VIAL ONE (06:21)
[2022-12-15] MEDS ORDERED: MIDAZOLAM HCL 5 MG/ML VIAL ONE (06:21)
[2022-12-15] MEDS ORDERED: SODIUM CHLORIDE 0.9% 1,000 ML ONE (06:22)
[2022-12-15] MEDS: INSULIN LISPRO 100 UNITS/ML SQ SCH ×2 (06:30→17:30)
[2022-12-15] MEDS ORDERED: DiphenhydrAMINE HCL 50 MG/ML VIAL ONE (07:38)
[2022-12-15] MEDS: PROMETHAZINE HCL 25 MG RECTAL SUPPOSITORY PR SCH ×4 (08:00→23:44)
[2022-12-15] MEDS: SODIUM ZIRCONIUM CYCLOSILICATE 5 GM POWDER PACKET PO SCH (09:27)
[2022-12-15] MEDS: LORazepam 0.5 MG TABLET PO SCH ×3 (09:28→20:59)
[2022-12-15] MEDS: PredniSONE 5 MG TABLET PO SCH (09:28)
[2022-12-15] MEDS: PANTOPRAZOLE SODIUM 40 MG/VIAL IVP SCH ×2 (09:28→21:00)
[2022-12-15 09:59] LABS: HEMATOCRIT 25.3 % (41-53); HEMOGLOBIN 8.6 g/dL (13.5-17.5)
[2022-12-15 10:03] LABS: CREATININE 1.53 mg/dL (0.60-1.30); POTASSIUM 4.1 mmol/L (3.5-5.1)
[2022-12-15 11:22] VITALS: BP 104/61; PULSE 74; RESP 16; TEMP 98.2
[2022-12-15 14:20] LABS: HEMATOCRIT 26.2 % (41-53); HEMOGLOBIN 8.8 g/dL (13.5-17.5)
[2022-12-15] MEDS: TACROLIMUS ANHYDROUS IV SCH (14:39)
[2022-12-15] MEDS: WATER IV SCH (14:39)
[2022-12-15] MEDS: DEXTROSE 5% IV SCH (14:39)
[2022-12-15 19:24] VITALS: BP 114/70; PULSE 105; RESP 18; TEMP 98.4
[2022-12-15 20:06] LABS: GLUCOMETER DEV NAME(LOC) 5N.1C; GLUCOSE,POINT OF CARE 130 MG/DL (70-110)
[2022-12-15 20:15] LABS: HEMATOCRIT 25.4 % (41-53); HEMOGLOBIN 8.5 g/dL (13.5-17.5)
[2022-12-15 20:16] LABS: GLUCOMETER DEV NAME(LOC) 5S.1B; GLUCOSE,POINT OF CARE 114 MG/DL (70-110)
[2022-12-15 22:28] VITALS: BP 100/64; PULSE 91; RESP 18; TEMP 98.9
[2022-12-16] MEDS: SODIUM CHLORIDE 0.45% 1,000 ML IV SCH (02:55)
[2022-12-16 03:12] LABS: BASOPHILS % (AUTO) 0.2 % (0.0-2.0); EOSINOPHILS % (AUTO) 4.1 % (1.0-6.0); HEMATOCRIT 24.3 % (41-53); HEMOGLOBIN 8.2 g/dL (13.5-17.5); LYMPHOCYTES # (AUTO) 0.6 K/uL (1.0-4.8); LYMPHOCYTES % (AUTO) 20.6 % (22.0-44.0); MEAN CORPUSCULAR HEMOGLOBIN 30.8 pg (26.0-34.0); MEAN CORPUSCULAR VOLUME 91 fL (80-100); MONOCYTES # (AUTO) 0.3 K/uL (0.1-1.0); MONOCYTES % (AUTO) 8.6 % (2.0-9.0); NEUTROPHILS % (AUTO) 66.5 % (40.0-70.0); PLATELET COUNT (AUTO) 108 K/uL (150-450); RED BLOOD CELL COUNT(AUTO) 2.68 MIL/uL (4.50-5.90); WHITE BLOOD COUNT (AUTO) 3.1 K/uL (4.5-11.0)
[2022-12-16 03:23] LABS: CALCIUM, TOTAL 8.1 mg/dL (8.8-10.5); CREATININE 1.46 mg/dL (0.60-1.30); POTASSIUM 4.2 mmol/L (3.5-5.1)
[2022-12-16] MEDS: INSULIN LISPRO 100 UNITS/ML SQ SCH ×2 (06:10→17:30)
[2022-12-16] MEDS: ALBUTEROL SULFATE 2.5 MG/0.5 ML NEB SOLUTION NEB SCH ×3 (07:59→20:00)
[2022-12-16] MEDS: PROMETHAZINE HCL 25 MG RECTAL SUPPOSITORY PR SCH ×2 (08:00→16:00)
[2022-12-16 08:19] VITALS: BP 122/78; PULSE 74; RESP 18; TEMP 98.6
[2022-12-16] MEDS: DiphenhydrAMINE HCL 50 MG/ML VIAL IVP PRN ×2 (08:23→13:39)
[2022-12-16] MEDS: SODIUM ZIRCONIUM CYCLOSILICATE 5 GM POWDER PACKET PO SCH (08:24)
[2022-12-16] MEDS: PredniSONE 5 MG TABLET PO SCH (08:24)
[2022-12-16] MEDS: LORazepam 0.5 MG TABLET PO SCH ×3 (08:25→21:00)
[2022-12-16] MEDS: HYDROmorphone HCL 2 MG/ML SYRINGE IVP PRN ×2 (08:25→13:40)
[2022-12-16] MEDS: PANTOPRAZOLE SODIUM 40 MG/VIAL IVP SCH ×2 (08:26→21:00)
[2022-12-16 08:56] LABS: HEMATOCRIT 27.4 % (41-53); HEMOGLOBIN 9.4 g/dL (13.5-17.5)
[2022-12-16 14:33] LABS: HEMATOCRIT 24.7 % (41-53); HEMOGLOBIN 8.4 g/dL (13.5-17.5)
[2022-12-16] MEDS: TACROLIMUS ANHYDROUS IV SCH (16:31)
[2022-12-16] MEDS: WATER IV SCH (16:31)
[2022-12-16] MEDS: DEXTROSE 5% IV SCH (16:31)
[2022-12-16 18:37] LABS: HEMATOCRIT 26.2 % (41-53); HEMOGLOBIN 8.8 g/dL (13.5-17.5)
[2022-12-16 19:28] VITALS: BP 103/74; PULSE 99; RESP 20; TEMP 97.6
[2022-12-16 20:17] LABS: HEMATOCRIT 25.5 % (41-53); HEMOGLOBIN 8.6 g/dL (13.5-17.5)
[2022-12-17] MEDS: ALBUTEROL SULFATE 2.5 MG/0.5 ML NEB SOLUTION NEB SCH ×2 (02:00→07:53)
[2022-12-17] MEDS: DiphenhydrAMINE HCL 50 MG/ML VIAL IVP PRN (02:06)
[2022-12-17] MEDS: HYDROmorphone HCL 2 MG/ML SYRINGE IVP PRN (02:09)
[2022-12-17 02:10] VITALS: BP 119/74; PULSE 99; RESP 18; TEMP 97.3
[2022-12-17] MEDS: INSULIN LISPRO 100 UNITS/ML SQ SCH (06:30)
[2022-12-17] MEDS: PROMETHAZINE HCL 25 MG RECTAL SUPPOSITORY PR SCH ×2 (08:00)
[2022-12-17 08:06] VITALS: BP 95/57; PULSE 86; RESP 20; TEMP 98
[2022-12-17] MEDS: LORazepam 0.5 MG TABLET PO SCH (09:00)
[2022-12-17] MEDS: PANTOPRAZOLE SODIUM 40 MG/VIAL IVP SCH (09:16)
[2022-12-17] MEDS: PredniSONE 5 MG TABLET PO SCH (09:17)
[2022-12-17 09:26] LABS: BASOPHILS % (AUTO) 0.7 % (0.0-2.0); EOSINOPHILS % (AUTO) 5.2 % (1.0-6.0); HEMATOCRIT 25.7 % (41-53); HEMOGLOBIN 8.8 g/dL (13.5-17.5); LYMPHOCYTES # (AUTO) 0.8 K/uL (1.0-4.8); LYMPHOCYTES % (AUTO) 24.1 % (22.0-44.0); MEAN CORPUSCULAR HEMOGLOBIN 30.9 pg (26.0-34.0); MEAN CORPUSCULAR HGB CONC 34.1 G/dL (31.0-37.0); MEAN CORPUSCULAR VOLUME 91 fL (80-100); MONOCYTES # (AUTO) 0.3 K/uL (0.1-1.0); MONOCYTES % (AUTO) 9.4 % (2.0-9.0); NEUTROPHILS % (AUTO) 60.6 % (40.0-70.0); PLATELET COUNT (AUTO) 106 K/uL (150-450); RED BLOOD CELL COUNT(AUTO) 2.84 MIL/uL (4.50-5.90); RED CELL DISTRIBUTION WIDTH 16.8 % (11.5-14.5); WHITE BLOOD COUNT (AUTO) 3.4 K/uL (4.5-11.0)
[2022-12-17 09:36] LABS: CALCIUM, TOTAL 8.4 mg/dL (8.8-10.5); CREATININE 1.48 mg/dL (0.60-1.30); POTASSIUM 3.8 mmol/L (3.5-5.1)
== END 2022-12-17 10:00 | disposition home or self-care (01) | DRG 73 ==
LOC: EMS 14:31 → 5S 18:38 → 6N 12-09 16:13 → 5S 12-09 20:42 → 6N 12-15 22:45
PROVIDERS: ADMIT Internal Medicine; ATTEND Internal Medicine
PROC: 0DB78ZX Excision of Stomach, Pylorus, Via Natural or Artificial Opening Endoscopic, Diagnostic (ICD-10-PCS; principal; 2022-12-10 10:30)
PROC: 0DJ08ZZ Inspection of Upper Intestinal Tract, Via Natural or Artificial Opening Endoscopic (ICD-10-PCS; 2022-12-15)
DX: E10.43 Type 1 diabetes mellitus with diabetic autonomic (poly)neuropathy (principal); E43 Unspecified severe protein-calorie malnutrition; K29.51 Unspecified chronic gastritis with bleeding; Z94.0 Kidney transplant status; Z94.2 Lung transplant status; E87.1 Hypo-osmolality and hyponatremia; E84.9 Cystic fibrosis, unspecified; F11.20 Opioid dependence, uncomplicated; T86.19 Other complication of kidney transplant; Z68.1 Body mass index [BMI] 19.9 or less, adult; N17.9 Acute kidney failure, unspecified; K31.84 Gastroparesis; E87.5 Hyperkalemia; G89.4 Chronic pain syndrome; E86.0 Dehydration; D63.1 Anemia in chronic kidney disease; Z20.822 Contact with and (suspected) exposure to COVID-19; E10.65 Type 1 diabetes mellitus with hyperglycemia; Y83.0 Surgical operation with transplant of whole organ as the cause of abnormal reaction of the patient, or of later complication, without mention of misadventure at the time of the procedure; T50.995A Adverse effect of other drugs, medicaments and biological substances, initial encounter; Y92.89 Other specified places as the place of occurrence of the external cause; Z93.1 Gastrostomy status; Z88.1 Allergy status to other antibiotic agents; Z88.8 Allergy status to other drugs, medicaments and biological substances; Z88.5 Allergy status to narcotic agent; Z91.041 Radiographic dye allergy status; Z90.49 Acquired absence of other specified parts of digestive tract; Z86.16 Personal history of COVID-19
CPT/HCPCS: 71250; 72192; 74150; 74176; 80048; 80053; 80197; 81001; 82009; 82271; 82962; 83036; 83690; 83735; 84100; 84132; 84484; 85014; 85018; 85025; 86850; 86900; 86901; 86923; 88305; 88312; 88313; 88342; 93005; 99291; C9113; G0480; J0610; J1170; J1200; J1644; J1815; J1940; J2250; J2354; J2405; J2920; J3010; J3475; J3490; J7030; J7050; J7060; J7500; J7507; J7525; Q9967

== ENCOUNTER 2023-01-10 04:44 | Emergency (ER) | payer BC, OTHER ==
[~2023-01-10] VITALS: Ht 162.6 cm; Wt 43.0 kg
[~2023-01-10 04:44] MED LIST changes: +LIPA1CAP18 PO
[2023-01-10 04:46] VITALS: BP 139/75; PULSE 69; RESP 16; TEMP 98.2
[2023-01-10 05:16] LABS: GLUCOMETER DEV NAME(LOC) ER.6; GLUCOSE,POINT OF CARE 177 MG/DL (70-110)
== END 2023-01-10 06:17 | disposition left against medical advice (07) ==
LOC: EMS 04:48
DX: R10.30 Lower abdominal pain, unspecified (principal); R11.2 Nausea with vomiting, unspecified; Z53.21 Procedure and treatment not carried out due to patient leaving prior to being seen by health care provider
CPT/HCPCS: 82962; 99281

== ENCOUNTER 2023-02-21 13:44 | Emergency (ER) | payer BC, OTHER ==
[~2023-02-21] VITALS: Ht 170.2 cm; Wt 47.7 kg
[2023-02-21 13:56] VITALS: BP 128/55; PULSE 70; RESP 16; TEMP 98.3
== END 2023-02-21 15:08 | disposition left against medical advice (07) ==
LOC: EMS 13:44
DX: R10.31 Right lower quadrant pain (principal); Z53.21 Procedure and treatment not carried out due to patient leaving prior to being seen by health care provider
CPT/HCPCS: 99281; Z7502

== ENCOUNTER 2023-02-25 10:54 | Emergency (ER) | payer BC, OTHER ==
[~2023-02-25] VITALS: Ht 170.2 cm; Wt 43.2 kg
[2023-02-25 11:01] VITALS: TEMP 98.3
[2023-02-25] MEDS ORDERED: HYDROmorphone HCL 2 MG/ML SYRINGE IVP ONE ×2 (11:30→13:15)
[2023-02-25] MEDS ORDERED: DiphenhydrAMINE HCL 50 MG/ML VIAL IVP ONE ×2 (11:30→13:45)
[2023-02-25 11:45] LABS: BASOPHILS % (AUTO) 0.3 % (0.0-2.0); EOSINOPHILS % (AUTO) 2.8 % (1.0-6.0); HEMATOCRIT 28.3 % (41-53); HEMOGLOBIN 9.7 g/dL (13.5-17.5); LYMPHOCYTES # (AUTO) 0.6 K/uL (1.0-4.8); LYMPHOCYTES % (AUTO) 17.9 % (22.0-44.0); MEAN CORPUSCULAR HEMOGLOBIN 31.5 pg (26.0-34.0); MEAN CORPUSCULAR HGB CONC 34.4 G/dL (31.0-37.0); MEAN CORPUSCULAR VOLUME 91 fL (80-100); MONOCYTES # (AUTO) 0.2 K/uL (0.1-1.0); MONOCYTES % (AUTO) 6.6 % (2.0-9.0); NEUTROPHILS # (AUTO) 2.6 K/uL (1.8-7.7); NEUTROPHILS % (AUTO) 72.4 % (40.0-70.0); PLATELET COUNT (AUTO) 111 K/uL (150-450); RED BLOOD CELL COUNT(AUTO) 3.09 MIL/uL (4.50-5.90); RED CELL DISTRIBUTION WIDTH 14.2 % (11.5-14.5); WHITE BLOOD COUNT (AUTO) 3.6 K/uL (4.5-11.0)
[2023-02-25] MEDS ORDERED: SODIUM CHLORIDE 0.9% 1,000 ML IV ONE (11:45)
[2023-02-25 11:54] LABS: ANION GAP 9 mmol/L (8-16); CALCIUM, TOTAL 8.5 mg/dL (8.8-10.5); CARBON DIOXIDE 25 mmol/L (22-29); CHLORIDE 104 mmol/L (98-107); CREATININE 1.69 mg/dL (0.60-1.30); GLOMERULAR FILTR. RATE CALC 49 mL/min (>60); GLUCOSE,RANDOM 374 mg/dL (70-110); POTASSIUM 3.9 mmol/L (3.5-5.1); SODIUM SERUM 138 mmol/L (136-145); UREA NITROGEN, BLOOD 17 mg/dL (7-18)
[2023-02-25 11:56] LABS: ALCOHOL, BLOOD (SERUM) < 3 mg/dL (0-10)
[2023-02-25 12:00] LABS: ALANINE AMINOTRANSFERASE 46 U/L (12-78); ALBUMIN 3.4 g/dL (3.4-5.0); ALKALINE PHOSPHATASE 74 U/L (46-116); ASPARTATE AMINOTRANSFERASE 22 U/L (15-37); BILIRUBIN,TOTAL 0.2 mg/dL (0.1-1.0); LIPASE < 10 U/L (16-77); PHOSPHORUS 3.1 mg/dL (2.5-4.9); TOTAL PROTEIN, SERUM 6.9 g/dL (6.4-8.2)
[2023-02-25] MEDS ORDERED: MAGNESIUM SULFATE 1 GM in DEXTROSE 5%-WATER 50 ML IV ONE (12:15)
[2023-02-25 12:18] LABS: COVID AG,FIA SOURCE NASAL SWAB
[2023-02-25 12:45] LABS: SARS-COV2 (COVID) ANTIGEN,FIA Negative (Negative)
[2023-02-25 13:39] VITALS: BP 133/84; PULSE 117; RESP 20
[2023-02-25] MEDS ORDERED: ONDANSETRON HCL 4 MG/2 ML VIAL IVP PRN (13:45)
[2023-02-25] MEDS ORDERED: 0.9% SODIUM CHLORIDE 10 ML SYRINGE IVP PRN (13:45)
== END 2023-02-25 15:17 | disposition left against medical advice (07) ==
LOC: EMS 11:00
DX: N17.9 Acute kidney failure, unspecified (principal); R11.2 Nausea with vomiting, unspecified; E84.9 Cystic fibrosis, unspecified; R10.33 Periumbilical pain; F41.9 Anxiety disorder, unspecified; E11.9 Type 2 diabetes mellitus without complications; Z90.49 Acquired absence of other specified parts of digestive tract; Z98.890 Other specified postprocedural states; Z88.6 Allergy status to analgesic agent; Z88.5 Allergy status to narcotic agent; Z91.040 Latex allergy status; Z88.8 Allergy status to other drugs, medicaments and biological substances; Z20.822 Contact with and (suspected) exposure to COVID-19
CPT/HCPCS: 99285; 74176; 96365; 71045; 96375; 96361; 87426; 80053; 83690; 83735; 84100; 85025; 36415; 93005; 96376; G0480; J1200; J1170; J7060; J3475; J7030

== ENCOUNTER 2023-05-24 06:48 | Emergency (ER) | payer BC, OTHER ==
[~2023-05-24] VITALS: Ht 170.2 cm; Wt 45.0 kg
[2023-05-24 06:50] VITALS: TEMP 98.1
[2023-05-24 07:15] LABS: GLUCOMETER DEV NAME(LOC) ER.6; GLUCOSE,POINT OF CARE 101 MG/DL (70-110)
[2023-05-24] MEDS ORDERED: ONDANSETRON HCL 4 MG/2 ML VIAL IVP ONE (08:00)
[2023-05-24] MEDS: SODIUM CHLORIDE 0.9% 1,000 ML IV ONE (08:08)
[2023-05-24 08:27] LABS: BASOPHILS % (AUTO) 0.3 % (0.0-2.0); HEMATOCRIT 33.2 % (41-53); HEMOGLOBIN 10.8 g/dL (13.5-17.5); LYMPHOCYTES # (AUTO) 0.8 K/uL (1.0-4.8); LYMPHOCYTES % (AUTO) 20.1 % (22.0-44.0); MEAN CORPUSCULAR HGB CONC 32.7 G/dL (31.0-37.0); MEAN CORPUSCULAR VOLUME 83 fL (80-100); MONOCYTES # (AUTO) 0.3 K/uL (0.1-1.0); NEUTROPHILS # (AUTO) 2.8 K/uL (1.8-7.7); NEUTROPHILS % (AUTO) 66.6 % (40.0-70.0); PLATELET COUNT (AUTO) 159 K/uL (150-450); RED BLOOD CELL COUNT(AUTO) 4.02 MIL/uL (4.50-5.90); RED CELL DISTRIBUTION WIDTH 15.6 % (11.5-14.5); WHITE BLOOD COUNT (AUTO) 4.2 K/uL (4.5-11.0)
[2023-05-24 08:41] LABS: ALANINE AMINOTRANSFERASE 19 U/L (12-78); ALBUMIN 3.8 g/dL (3.4-5.0); ALKALINE PHOSPHATASE 87 U/L (46-116); ANION GAP 10 mmol/L (8-16); ASPARTATE AMINOTRANSFERASE 14 U/L (15-37); BILIRUBIN,TOTAL 0.3 mg/dL (0.1-1.0); CALCIUM, TOTAL 9.2 mg/dL (8.8-10.5); CARBON DIOXIDE 22 mmol/L (22-29); CHLORIDE 104 mmol/L (98-107); CREATININE 1.72 mg/dL (0.60-1.30); GLOMERULAR FILTR. RATE CALC 48 mL/min (>60); GLUCOSE,RANDOM 102 mg/dL (70-110); LIPASE < 10 U/L (16-77); POTASSIUM 4.7 mmol/L (3.5-5.1); SODIUM SERUM 136 mmol/L (136-145); TOTAL PROTEIN, SERUM 7.7 g/dL (6.4-8.2); UREA NITROGEN, BLOOD 24 mg/dL (7-18)
[2023-05-24] MEDS: FentaNYL CITRATE PF 100 MCG/2 ML VIAL IVP ONE (08:51)
[2023-05-24 09:51] VITALS: BP 136/74; PULSE 90; RESP 18
== END 2023-05-24 09:59 | disposition home or self-care (01) ==
LOC: EMS 06:49
DX: R10.30 Lower abdominal pain, unspecified (principal); F41.9 Anxiety disorder, unspecified; E11.9 Type 2 diabetes mellitus without complications; Z90.49 Acquired absence of other specified parts of digestive tract; Z98.890 Other specified postprocedural states; Z88.6 Allergy status to analgesic agent; Z91.040 Latex allergy status; Z88.8 Allergy status to other drugs, medicaments and biological substances
CPT/HCPCS: 99284; 74176; 96360; 80053; 82962; 83690; 85025; 36415; J2405; J7030; J3010

== ENCOUNTER 2023-10-24 17:34 | Emergency (ER) | payer BC, OTHER ==
[~2023-10-24] VITALS: Ht 170.2 cm; Wt 43.6 kg
[~2023-10-24 17:34] MED LIST changes: -AZAT50TA22 PO; +TAMS0.4C94 PO
[2023-10-24 17:40] VITALS: BP 137/95; PULSE 102; RESP 19; TEMP 98.6
[2023-10-24 18:40] LABS: BASOPHILS % (AUTO) 0.4 % (0.0-2.0); EOSINOPHILS % (AUTO) 4.5 % (1.0-6.0); HEMATOCRIT 31.7 % (41-53); HEMOGLOBIN 10.2 g/dL (13.5-17.5); LYMPHOCYTES # (AUTO) 0.7 K/uL (1.0-4.8); LYMPHOCYTES % (AUTO) 16.5 % (22.0-44.0); MEAN CORPUSCULAR HEMOGLOBIN 27.1 pg (26.0-34.0); MEAN CORPUSCULAR HGB CONC 32.3 G/dL (31.0-37.0); MEAN CORPUSCULAR VOLUME 84 fL (80-100); MONOCYTES # (AUTO) 0.3 K/uL (0.1-1.0); MONOCYTES % (AUTO) 8.2 % (2.0-9.0); NEUTROPHILS # (AUTO) 2.9 K/uL (1.8-7.7); NEUTROPHILS % (AUTO) 70.4 % (40.0-70.0); PLATELET COUNT (AUTO) 160 K/uL (150-450); RED BLOOD CELL COUNT(AUTO) 3.77 MIL/uL (4.50-5.90); RED CELL DISTRIBUTION WIDTH 14.9 % (11.5-14.5); WHITE BLOOD COUNT (AUTO) 4.2 K/uL (4.5-11.0)
[2023-10-24 18:52] LABS: ANION GAP 9 mmol/L (8-16); CALCIUM, TOTAL 8.5 mg/dL (8.8-10.5); CARBON DIOXIDE 24 mmol/L (22-29); CHLORIDE 96 mmol/L (98-107); CREATININE 1.85 mg/dL (0.60-1.30); GLOMERULAR FILTR. RATE CALC 43 mL/min (>60); GLUCOSE,RANDOM 251 mg/dL (70-110); POTASSIUM 5.1 mmol/L (3.5-5.1); SODIUM SERUM 129 mmol/L (136-145); UREA NITROGEN, BLOOD 32 mg/dL (7-18)
[2023-10-24 18:55] LABS: ALANINE AMINOTRANSFERASE 18 U/L (12-78); ALBUMIN 3.6 g/dL (3.4-5.0); ALKALINE PHOSPHATASE 118 U/L (46-116); ASPARTATE AMINOTRANSFERASE 16 U/L (15-37); BILIRUBIN,TOTAL 0.4 mg/dL (0.1-1.0); LIPASE < 10 U/L (16-77); TOTAL PROTEIN, SERUM 7.6 g/dL (6.4-8.2)
[2023-10-24] MEDS: SODIUM CHLORIDE 0.9% 1,000 ML IV ONE (19:29)
[2023-10-24] MEDS ORDERED: SODIUM CHLORIDE 0.9% 1,000 ML IV ONE (19:45)
[2023-10-24] MEDS ORDERED: DEXTROSE 50%-WATER 25 GM/50 ML SYRINGE IVP PRN (19:45)
[2023-10-24] MEDS ORDERED: INSULIN LISPRO 100 UNITS/ML SQ PRN (19:45)
[2023-10-24] MEDS ORDERED: HYDROmorphone HCL 2 MG/ML SYRINGE IVP PRN (19:45)
[2023-10-24] MEDS ORDERED: ONDANSETRON HCL 4 MG/2 ML VIAL IVP PRN (19:45)
[2023-10-24] MEDS ORDERED: TACROLIMUS 5 MG CAPSULE PO SCH (21:00)
[2023-10-24] MEDS ORDERED: HEPARIN SODIUM,PORCINE 5,000 UNITS/ML VIAL SQ SCH (21:00)
[2023-10-24] MEDS ORDERED: DOCUSATE SODIUM 100 MG CAPSULE PO SCH (21:00)
[2023-10-25] MEDS ORDERED: PredniSONE 5 MG TABLET PO SCH (09:00)
[2023-10-25] MEDS ORDERED: PANTOPRAZOLE SODIUM 40 MG/VIAL IVP SCH (09:00)
== END 2023-10-24 23:30 | disposition home or self-care (01) ==
LOC: EMS 17:36
DX: R11.2 Nausea with vomiting, unspecified (principal); F41.9 Anxiety disorder, unspecified; E11.9 Type 2 diabetes mellitus without complications; Z90.49 Acquired absence of other specified parts of digestive tract; Z98.890 Other specified postprocedural states; Z88.6 Allergy status to analgesic agent; Z91.040 Latex allergy status; Z88.8 Allergy status to other drugs, medicaments and biological substances
CPT/HCPCS: 80048; 80076; 83690; 85025; 93005; 99284

== ENCOUNTER 2023-11-02 21:27 | Emergency (ER) | payer BC, OTHER ==
[~2023-11-02] VITALS: Ht 162.6 cm; Wt 43.2 kg
[2023-11-02 21:31] VITALS: BP 136/82; PULSE 92; RESP 20; TEMP 97.8
== END 2023-11-02 22:27 | disposition left against medical advice (07) ==
LOC: EMS 21:27
DX: R10.9 Unspecified abdominal pain (principal); Z53.21 Procedure and treatment not carried out due to patient leaving prior to being seen by health care provider
CPT/HCPCS: 82962; 93005

== ENCOUNTER 2023-11-03 08:09 | Emergency (ER) | payer BC, OTHER ==
[~2023-11-03] VITALS: Ht 167.6 cm; Wt 43.2 kg
[~2023-11-03 08:09] MED LIST changes: -TAMS0.4C94 PO
[2023-11-03 08:30] VITALS: BP 123/75; PULSE 76; RESP 18; TEMP 97.9
[2023-11-04] MEDS ORDERED: PRED5TAB2 PO (08:50)
== END 2023-11-03 10:50 | disposition left against medical advice (07) ==
LOC: EMS 08:09
DX: R19.7 Diarrhea, unspecified (principal); R11.10 Vomiting, unspecified; Z53.21 Procedure and treatment not carried out due to patient leaving prior to being seen by health care provider

== ENCOUNTER 2023-11-04 08:43 | Emergency (ER) | payer BC, OTHER ==
[~2023-11-04] VITALS: Ht 162.6 cm; Wt 43.2 kg
[2023-11-04 08:50] VITALS: TEMP 98
[2023-11-04] MEDS ORDERED: PRED5TAB2 PO (08:50)
[2023-11-04 09:15] LABS: APPEARANCE,URINE CLEAR (CLEAR); BILIRUBIN,URINE NEGATIVE (NEGATIVE); COLOR,URINE COLORLESS (YELLOW); GLUCOSE, URINE (UA) 300-500 mg/dL (NEGATIVE); KETONES,URINE NEGATIVE (NEGATIVE); LEUKOCYTE ESTERASE ,URINE NEGATIVE (NEGATIVE); NITRATE,URINE NEGATIVE (NEGATIVE); OCCULT BLOOD,URINE NEGATIVE (NEGATIVE); PH,URINE 6.5 (5.0-8.0); PROTEIN,URINE NEGATIVE (NEGATIVE); SPECIFIC GRAVITIY, URINE 1.007 (1.003-1.030); UROBILINOGEN,URINE <=1.0 mg/dL (<=1.0)
[2023-11-04 09:30] LABS: BACTERIA,URINE None Seen /HPF (None Seen); RBC,URINE None Seen /HPF (0-2); WBC,URINE None Seen /HPF (0-5)
[2023-11-04] MEDS: SODIUM CHLORIDE 0.9% 1,000 ML IV ONE (10:02)
[2023-11-04] MEDS: ONDANSETRON HCL 4 MG/2 ML VIAL IVP ONE (10:03)
[2023-11-04] MEDS: CIPROFLOXACIN HCL 250 MG TABLET PO ONE (10:04)
[2023-11-04] MEDS: DIPHENOXYLATE/ATROP 2.5-0.025 MG TABLET PO ONE (10:05)
[2023-11-04 10:44] LABS: BASOPHILS % (AUTO) 0.3 % (0.0-2.0); EOSINOPHILS % (AUTO) 3.8 % (1.0-6.0); HEMATOCRIT 27.2 % (41-53); HEMOGLOBIN 8.7 g/dL (13.5-17.5); LYMPHOCYTES # (AUTO) 0.6 K/uL (1.0-4.8); LYMPHOCYTES % (AUTO) 16.7 % (22.0-44.0); MEAN CORPUSCULAR HGB CONC 31.9 G/dL (31.0-37.0); MEAN CORPUSCULAR VOLUME 85 fL (80-100); MONOCYTES # (AUTO) 0.4 K/uL (0.1-1.0); MONOCYTES % (AUTO) 10.6 % (2.0-9.0); NEUTROPHILS # (AUTO) 2.3 K/uL (1.8-7.7); NEUTROPHILS % (AUTO) 68.6 % (40.0-70.0); PLATELET COUNT (AUTO) 131 K/uL (150-450); RED BLOOD CELL COUNT(AUTO) 3.21 MIL/uL (4.50-5.90); RED CELL DISTRIBUTION WIDTH 15.4 % (11.5-14.5); WHITE BLOOD COUNT (AUTO) 3.4 K/uL (4.5-11.0)
[2023-11-04] MEDS ORDERED: MAG HYDROX/ALUMINUM HYD/SIMETH ES 30 ML SUSPENSION UDCUP PO ONE (11:00)
[2023-11-04 12:07] LABS: ANION GAP 10 mmol/L (8-16); CALCIUM, TOTAL 7.6 mg/dL (8.8-10.5); CARBON DIOXIDE 20 mmol/L (22-29); CHLORIDE 111 mmol/L (98-107); CREATININE 1.68 mg/dL (0.60-1.30); GLOMERULAR FILTR. RATE CALC 49 mL/min (>60); GLUCOSE,RANDOM 118 mg/dL (70-110); LIPASE < 10 U/L (16-77); POTASSIUM 4.8 mmol/L (3.5-5.1); SODIUM SERUM 141 mmol/L (136-145); UREA NITROGEN, BLOOD 19 mg/dL (7-18)
[2023-11-04] MEDS ORDERED: SODIUM CHLORIDE 0.9% 500 ML IV ONE (12:30)
[2023-11-04] MEDS: SODIUM CHLORIDE 0.9% 500 ML IV ONE (12:37)
[2023-11-04] MEDS: HYDROmorphone HCL 2 MG/ML SYRINGE IVP ONE (12:38)
[2023-11-04 12:47] VITALS: BP 140/88; PULSE 88; RESP 16
== END 2023-11-04 13:02 | disposition still patient (30) ==
LOC: EMS 08:43
DX: R11.2 Nausea with vomiting, unspecified (principal); D64.9 Anemia, unspecified; F41.9 Anxiety disorder, unspecified; E11.9 Type 2 diabetes mellitus without complications; K21.9 Gastro-esophageal reflux disease without esophagitis; K52.9 Noninfective gastroenteritis and colitis, unspecified; Z87.442 Personal history of urinary calculi; Z90.49 Acquired absence of other specified parts of digestive tract; Z88.5 Allergy status to narcotic agent; Z88.6 Allergy status to analgesic agent
CPT/HCPCS: 99284; 96374; 96361; 96375; 80048; 81001; 82962; 83690; 85025; 36415; J1170; J2405; J7030; J7040; 81003

== ENCOUNTER 2023-11-09 09:23 | Emergency (ER) | payer BC, OTHER ==
[~2023-11-09] VITALS: Ht 170.2 cm; Wt 43.6 kg
[~2023-11-09 09:23] MED LIST changes: -PRED-549 PO; +PRED5TAB2 PO
[2023-11-09 09:51] LABS: GLUCOMETER DEV NAME(LOC) ER.7; GLUCOSE,POINT OF CARE 158 MG/DL (70-110)
[2023-11-09 11:02] LABS: BASOPHILS % (AUTO) 0.5 % (0.0-2.0); EOSINOPHILS % (AUTO) 5.6 % (1.0-6.0); HEMATOCRIT 33.8 % (41-53); HEMOGLOBIN 10.9 g/dL (13.5-17.5); LYMPHOCYTES # (AUTO) 0.8 K/uL (1.0-4.8); MEAN CORPUSCULAR HEMOGLOBIN 27.5 pg (26.0-34.0); MEAN CORPUSCULAR HGB CONC 32.2 G/dL (31.0-37.0); MEAN CORPUSCULAR VOLUME 85 fL (80-100); MONOCYTES # (AUTO) 0.3 K/uL (0.1-1.0); MONOCYTES % (AUTO) 8.3 % (2.0-9.0); NEUTROPHILS # (AUTO) 1.9 K/uL (1.8-7.7); NEUTROPHILS % (AUTO) 59.6 % (40.0-70.0); PLATELET COUNT (AUTO) 174 K/uL (150-450); RED BLOOD CELL COUNT(AUTO) 3.96 MIL/uL (4.50-5.90); RED CELL DISTRIBUTION WIDTH 16.1 % (11.5-14.5); WHITE BLOOD COUNT (AUTO) 3.2 K/uL (4.5-11.0)
[2023-11-09 11:18] LABS: ANION GAP 7 mmol/L (8-16); CALCIUM, TOTAL 8.7 mg/dL (8.8-10.5); CARBON DIOXIDE 25 mmol/L (22-29); CHLORIDE 104 mmol/L (98-107); CREATININE 1.88 mg/dL (0.60-1.30); GLOMERULAR FILTR. RATE CALC 43 mL/min (>60); GLUCOSE,RANDOM 194 mg/dL (70-110); POTASSIUM 5.1 mmol/L (3.5-5.1); SODIUM SERUM 136 mmol/L (136-145); UREA NITROGEN, BLOOD 34 mg/dL (7-18)
[2023-11-09 11:19] LABS: LIPASE < 10 U/L (16-77)
[2023-11-09 11:51] VITALS: TEMP 97.2
[2023-11-09] MEDS: SODIUM CHLORIDE 0.9% 1,000 ML IV ONE (12:22)
[2023-11-09] MEDS: ONDANSETRON HCL 4 MG/2 ML VIAL IVP ONE (12:22)
[2023-11-09] MEDS: HYDROmorphone HCL 2 MG/ML SYRINGE IVP ONE ×2 (12:23→14:07)
[2023-11-09] MEDS: DiphenhydrAMINE HCL 50 MG/ML VIAL IVP ONE (14:05)
[2023-11-09] MEDS: PROCHLORPERAZINE EDISYLATE 5 MG/ML 2 ML VIAL IVP ONE (14:14)
[2023-11-09 14:17] VITALS: BP 119/83; PULSE 90; RESP 17; O2SAT 99
== END 2023-11-09 14:47 | disposition home or self-care (01) ==
LOC: EMS 09:23
DX: R19.7 Diarrhea, unspecified (principal); F41.9 Anxiety disorder, unspecified; E11.9 Type 2 diabetes mellitus without complications; Z90.49 Acquired absence of other specified parts of digestive tract; Z98.890 Other specified postprocedural states; Z88.6 Allergy status to analgesic agent; Z88.5 Allergy status to narcotic agent; Z91.040 Latex allergy status; Z88.8 Allergy status to other drugs, medicaments and biological substances
CPT/HCPCS: 99285; 96374; 96375; 71045; 96361; 80048; 82962; 83690; 85025; 85610; 85730; 86850; 86900; 86901; 36415; 93005; 96376; J1200; J1170; J2405; J0780; J7030

== ENCOUNTER 2023-11-22 03:14 | Emergency (ER) | payer BC, OTHER ==
[~2023-11-22] VITALS: Ht 167.6 cm; Wt 44.5 kg
[2023-11-22 03:18] VITALS: BP 136/84; PULSE 92; RESP 20; TEMP 98.4; O2SAT 95
[2023-11-22 03:36] LABS: GLUCOMETER DEV NAME(LOC) ER.7; GLUCOSE,POINT OF CARE 220 MG/DL (70-110)
== END 2023-11-22 04:13 | disposition left against medical advice (07) ==
LOC: EMS 03:14
DX: R19.7 Diarrhea, unspecified (principal); R11.2 Nausea with vomiting, unspecified; R10.31 Right lower quadrant pain; Z53.21 Procedure and treatment not carried out due to patient leaving prior to being seen by health care provider
CPT/HCPCS: 82962

== ENCOUNTER 2023-11-29 14:36 | Emergency (ER) | payer BC, OTHER ==
[~2023-11-29] VITALS: Ht 160 cm; Wt 43.2 kg
[2023-11-29 14:41] VITALS: BP 142/81; PULSE 94; RESP 18; TEMP 98.4; O2SAT 99
[2023-11-29 18:48] LABS: BASOPHILS % (AUTO) 0.5 % (0.0-2.0); EOSINOPHILS % (AUTO) 5.6 % (1.0-6.0); HEMATOCRIT 25.6 % (41-53); HEMOGLOBIN 8.4 g/dL (13.5-17.5); LYMPHOCYTES # (AUTO) 0.7 K/uL (1.0-4.8); LYMPHOCYTES % (AUTO) 23.5 % (22.0-44.0); MEAN CORPUSCULAR HEMOGLOBIN 27.6 pg (26.0-34.0); MEAN CORPUSCULAR HGB CONC 32.7 G/dL (31.0-37.0); MEAN CORPUSCULAR VOLUME 84 fL (80-100); MONOCYTES # (AUTO) 0.3 K/uL (0.1-1.0); MONOCYTES % (AUTO) 9.3 % (2.0-9.0); NEUTROPHILS # (AUTO) 1.7 K/uL (1.8-7.7); NEUTROPHILS % (AUTO) 61.1 % (40.0-70.0); PLATELET COUNT (AUTO) 123 K/uL (150-450); RED BLOOD CELL COUNT(AUTO) 3.04 MIL/uL (4.50-5.90); RED CELL DISTRIBUTION WIDTH 15.3 % (11.5-14.5); WHITE BLOOD COUNT (AUTO) 2.8 K/uL (4.5-11.0)
[2023-11-29 18:50] LABS: ANION GAP 13 mmol/L (8-16); CALCIUM, TOTAL 8.5 mg/dL (8.8-10.5); CARBON DIOXIDE 22 mmol/L (22-29); CHLORIDE 106 mmol/L (98-107); CREATININE 1.93 mg/dL (0.60-1.30); GLOMERULAR FILTR. RATE CALC 41 mL/min (>60); GLUCOSE,RANDOM 206 mg/dL (70-110); POTASSIUM 5.2 mmol/L (3.5-5.1); SODIUM SERUM 141 mmol/L (136-145); UREA NITROGEN, BLOOD 24 mg/dL (7-18)
[2023-11-29 18:55] LABS: ALANINE AMINOTRANSFERASE 15 U/L (12-78); ALBUMIN 3.5 g/dL (3.4-5.0); ALKALINE PHOSPHATASE 97 U/L (46-116); ASPARTATE AMINOTRANSFERASE 12 U/L (15-37); BILIRUBIN,TOTAL 0.3 mg/dL (0.1-1.0); LIPASE < 10 U/L (16-77); TOTAL PROTEIN, SERUM 6.9 g/dL (6.4-8.2)
[2023-11-29] MEDS: ONDANSETRON HCL 4 MG/2 ML VIAL IVP ONE (19:20)
== END 2023-11-29 19:49 | disposition home or self-care (01) ==
LOC: EMS 14:36
DX: K59.00 Constipation, unspecified (principal); R10.84 Generalized abdominal pain; E11.9 Type 2 diabetes mellitus without complications; F41.9 Anxiety disorder, unspecified; D64.9 Anemia, unspecified; K92.2 Gastrointestinal hemorrhage, unspecified; K52.9 Noninfective gastroenteritis and colitis, unspecified; E87.6 Hypokalemia; Z87.442 Personal history of urinary calculi; Z90.49 Acquired absence of other specified parts of digestive tract; Z88.5 Allergy status to narcotic agent; Z88.6 Allergy status to analgesic agent
CPT/HCPCS: 99284; 80048; 80076; 83690; 85025; 36415; 74019; J2405

== ENCOUNTER 2023-12-09 07:52 | Emergency (ER) | payer BC, OTHER ==
[~2023-12-09] VITALS: Ht 162.6 cm; Wt 44.5 kg
[2023-12-09 07:59] VITALS: BP 113/55; PULSE 78; RESP 22; TEMP 98.7; O2SAT 97
[2023-12-09] MEDS ORDERED: SODIUM CHLORIDE 0.9% 1,000 ML IV ONE (08:30)
[2023-12-09] MEDS ORDERED: FAMOTIDINE 20 MG/2 ML VIAL IVP ONE (08:30)
[2023-12-09] MEDS ORDERED: ONDANSETRON HCL 4 MG/2 ML VIAL IVP ONE (08:30)
== END 2023-12-09 08:33 | disposition left against medical advice (07) ==
LOC: EMS 07:52
DX: R19.7 Diarrhea, unspecified (principal); F41.9 Anxiety disorder, unspecified; E11.9 Type 2 diabetes mellitus without complications; Z90.49 Acquired absence of other specified parts of digestive tract; Z98.890 Other specified postprocedural states; Z88.6 Allergy status to analgesic agent; Z88.5 Allergy status to narcotic agent; Z91.040 Latex allergy status; Z88.8 Allergy status to other drugs, medicaments and biological substances
CPT/HCPCS: 99281; Z7502

== ENCOUNTER 2024-02-25 15:32 | Inpatient (IN) | payer BC, OTHER ==
[~2024-02-25] VITALS: Ht 170.2 cm; Wt 42.9 kg
[2024-02-25] MEDS: ONDANSETRON HCL 4 MG/2 ML VIAL IVP ONE (17:51)
[2024-02-25] MEDS: HYDROmorphone HCL 2 MG/ML SYRINGE IVP ONE (17:52)
[2024-02-25] MEDS ORDERED: DEXTROSE 50%-WATER 25 GM/50 ML SYRINGE IVP PRN (18:00)
[2024-02-25] MEDS ORDERED: ONDANSETRON HCL 4 MG/2 ML VIAL IVP PRN (18:00)
[2024-02-25] MEDS ORDERED: ZOLPIDEM TARTRATE 5 MG TABLET PO PRN (18:00)
[2024-02-25 18:19] LABS: BASOPHILS % (AUTO) 0.7 % (0.0-2.0); EOSINOPHILS % (AUTO) 1.9 % (1.0-6.0); HEMATOCRIT 30.3 % (41-53); HEMOGLOBIN 9.9 g/dL (13.5-17.5); LYMPHOCYTES % (AUTO) 18.5 % (22.0-44.0); MEAN CORPUSCULAR HEMOGLOBIN 29.2 pg (26.0-34.0); MEAN CORPUSCULAR HGB CONC 32.7 G/dL (31.0-37.0); MEAN CORPUSCULAR VOLUME 89 fL (80-100); MONOCYTES # (AUTO) 0.4 K/uL (0.1-1.0); NEUTROPHILS # (AUTO) 3.9 K/uL (1.8-7.7); NEUTROPHILS % (AUTO) 71.9 % (40.0-70.0); PLATELET COUNT (AUTO) 129 K/uL (150-450); RED BLOOD CELL COUNT(AUTO) 3.39 MIL/uL (4.50-5.90); RED CELL DISTRIBUTION WIDTH 17.7 % (11.5-14.5); WHITE BLOOD COUNT (AUTO) 5.4 K/uL (4.5-11.0)
[2024-02-25 18:27] LABS: ANION GAP 12 mmol/L (8-16); CALCIUM, TOTAL 8.2 mg/dL (8.8-10.5); CARBON DIOXIDE 24 mmol/L (22-29); CHLORIDE 108 mmol/L (98-107); CREATININE 1.45 mg/dL (0.60-1.30); GLOMERULAR FILTR. RATE CALC 58 mL/min (>60); GLUCOSE,RANDOM 105 mg/dL (70-110); LIPASE < 10 U/L (16-77); POTASSIUM 5.1 mmol/L (3.5-5.1); SODIUM SERUM 144 mmol/L (136-145); UREA NITROGEN, BLOOD 29 mg/dL (7-18)
[2024-02-25 20:40] VITALS: BP 134/72; PULSE 95; RESP 20; TEMP 98.9; O2SAT 100
[2024-02-25] MEDS: HEPARIN SODIUM,PORCINE 5,000 UNITS/ML VIAL SQ SCH (21:00)
[2024-02-25] MEDS: HYDROmorphone HCL 2 MG/ML SYRINGE IVP PRN (21:12)
[2024-02-25] MEDS: TACROLIMUS 1 MG CAPSULE PO SCH (21:52)
[2024-02-25] MEDS: VANCOMYCIN HCL 125 MG/2.5 ML SOLUTION ORAL.SYG PO SCH (21:53)
[2024-02-25] MEDS: DiphenhydrAMINE HCL 50 MG/ML VIAL IVP PRN (21:53)
[2024-02-26 05:52] VITALS: BP 126/85; PULSE 74; RESP 20; TEMP 97.6; O2SAT 100
[2024-02-26] MEDS: PredniSONE 5 MG TABLET PO SCH (08:05)
[2024-02-26] MEDS: FAMOTIDINE 20 MG TABLET PO SCH (08:05)
[2024-02-26 08:25] VITALS: BP 104/68; PULSE 85; RESP 18; TEMP 97.9; O2SAT 100
[2024-02-26 09:14] VITALS: BP 119/77; PULSE 84; RESP 18; O2SAT 97
[2024-02-26] MEDS: INSULIN LISPRO 100 UNITS/ML SQ PRN (11:31)
[2024-02-26 13:17] LABS: APPEARANCE,URINE CLEAR (CLEAR); BILIRUBIN,URINE NEGATIVE (NEGATIVE); COLOR,URINE LIGHT YELLOW (YELLOW); GLUCOSE, URINE (UA) 70-100 mg/dL (NEGATIVE); KETONES,URINE NEGATIVE (NEGATIVE); LEUKOCYTE ESTERASE ,URINE NEGATIVE (NEGATIVE); NITRATE,URINE NEGATIVE (NEGATIVE); OCCULT BLOOD,URINE NEGATIVE (NEGATIVE); PROTEIN,URINE TRACE mg/dL (NEGATIVE); SPECIFIC GRAVITIY, URINE 1.019 (1.003-1.030); UROBILINOGEN,URINE <=1.0 mg/dL (<=1.0)
[2024-02-26 13:25] LABS: BACTERIA,URINE None Seen /HPF (None Seen); RBC,URINE None Seen /HPF (0-2); WBC,URINE None Seen /HPF (0-5)
[2024-02-26] MEDS: SODIUM CHLORIDE 0.9% 1,000 ML IV ONE (14:01)
[2024-02-26 14:36] LABS: GLUCOMETER DEV NAME(LOC) 6S.1D; GLUCOSE,POINT OF CARE 235 MG/DL (70-110)
[2024-02-26 15:24] VITALS: BP 119/72; PULSE 71; RESP 18; TEMP 98.6; O2SAT 98
[2024-02-26 21:32] VITALS: BP 131/79; PULSE 96; RESP 20; TEMP 97.9; O2SAT 99
[2024-02-27 03:37] VITALS: BP 126/84; PULSE 92; RESP 20; TEMP 98; O2SAT 100
[2024-02-27 07:39] LABS: BASOPHILS % (AUTO) 0.3 % (0.0-2.0); EOSINOPHILS % (AUTO) 3.9 % (1.0-6.0); HEMATOCRIT 30.9 % (41-53); LYMPHOCYTES # (AUTO) 0.8 K/uL (1.0-4.8); LYMPHOCYTES % (AUTO) 24.7 % (22.0-44.0); MEAN CORPUSCULAR HEMOGLOBIN 29.2 pg (26.0-34.0); MEAN CORPUSCULAR HGB CONC 32.5 G/dL (31.0-37.0); MEAN CORPUSCULAR VOLUME 90 fL (80-100); MONOCYTES # (AUTO) 0.3 K/uL (0.1-1.0); MONOCYTES % (AUTO) 9.6 % (2.0-9.0); NEUTROPHILS % (AUTO) 61.5 % (40.0-70.0); PLATELET COUNT (AUTO) 121 K/uL (150-450); RED BLOOD CELL COUNT(AUTO) 3.44 MIL/uL (4.50-5.90); RED CELL DISTRIBUTION WIDTH 17.8 % (11.5-14.5); WHITE BLOOD COUNT (AUTO) 3.3 K/uL (4.5-11.0)
[2024-02-27 07:48] LABS: CALCIUM, TOTAL 8.4 mg/dL (8.8-10.5); CREATININE 1.6 mg/dL (0.60-1.30); POTASSIUM 5.4 mmol/L (3.5-5.1)
[2024-02-27 09:31] VITALS: BP 121/79; PULSE 97; RESP 18; TEMP 98.5; O2SAT 98
[2024-02-27] MEDS ORDERED: SODIUM CHLORIDE 0.9% 250 ML IV ONE (11:45)
[2024-02-27] MEDS: SODIUM ZIRCONIUM CYCLOSILICATE 5 GM POWDER PACKET PO ONE (12:35)
[2024-02-27] MEDS: SODIUM CHLORIDE 0.9% 250 ML IV ONE (12:36)
[2024-02-27 15:44] VITALS: BP 120/88; PULSE 114; RESP 18; TEMP 98.1; O2SAT 98
[2024-02-27 15:57] LABS: CALCIUM, TOTAL 8.4 mg/dL (8.8-10.5); CREATININE 1.95 mg/dL (0.60-1.30); POTASSIUM 4.9 mmol/L (3.5-5.1)
[2024-02-27] MEDS: SODIUM CHLORIDE 0.9% 1,000 ML IV ONE (16:38)
[2024-02-27 20:08] VITALS: BP 129/83; PULSE 91; RESP 20; TEMP 97.5; O2SAT 100
[2024-02-28 01:30] LABS: GLUCOMETER DEV NAME(LOC) 4E.2; GLUCOSE,POINT OF CARE 139 MG/DL (70-110)
== END 2024-02-28 00:45 | disposition left against medical advice (07) | DRG 391 ==
LOC: EMS 15:32 → EDH 18:00 → 4E 20:36
PROVIDERS: ADMIT Internal Medicine; ATTEND Internal Medicine
DX: R10.84 Generalized abdominal pain (principal); E43 Unspecified severe protein-calorie malnutrition; F11.20 Opioid dependence, uncomplicated; D84.9 Immunodeficiency, unspecified; Z68.1 Body mass index [BMI] 19.9 or less, adult; Z94.0 Kidney transplant status; Z94.2 Lung transplant status; R64 Cachexia; G89.29 Other chronic pain; D63.8 Anemia in other chronic diseases classified elsewhere; K31.84 Gastroparesis; E87.5 Hyperkalemia; E11.65 Type 2 diabetes mellitus with hyperglycemia; E11.43 Type 2 diabetes mellitus with diabetic autonomic (poly)neuropathy; Z53.29 Procedure and treatment not carried out because of patient's decision for other reasons; F41.9 Anxiety disorder, unspecified; Z76.5 Malingerer [conscious simulation]; Z79.899 Other long term (current) drug therapy; Z79.60 Long term (current) use of unspecified immunomodulators and immunosuppressants; Z88.8 Allergy status to other drugs, medicaments and biological substances; Z88.5 Allergy status to narcotic agent; Z88.1 Allergy status to other antibiotic agents; Z87.442 Personal history of urinary calculi; Z88.6 Allergy status to analgesic agent; Z79.4 Long term (current) use of insulin; Z91.041 Radiographic dye allergy status; Z91.199 Patient's noncompliance with other medical treatment and regimen due to unspecified reason; Z90.49 Acquired absence of other specified parts of digestive tract
CPT/HCPCS: 80048; 81001; 82962; 83690; 85025; 93005; 99285; G0378; J1171; J1200; J1644; J2405; J7030; J7050; J7507

== ENCOUNTER 2024-05-09 05:01 | Inpatient (IN) | payer BC, OTHER ==
[~2024-05-09] VITALS: Ht 167.6 cm; Wt 43.2 kg
[2024-05-09 05:04] VITALS: TEMP 98.5
[2024-05-09 05:36] LABS: APPEARANCE,URINE CLEAR (CLEAR); BILIRUBIN,URINE NEGATIVE (NEGATIVE); COLOR,URINE COLORLESS (YELLOW); GLUCOSE, URINE (UA) >=1000 mg/dL (NEGATIVE); KETONES,URINE NEGATIVE (NEGATIVE); LEUKOCYTE ESTERASE ,URINE NEGATIVE (NEGATIVE); NITRATE,URINE NEGATIVE (NEGATIVE); OCCULT BLOOD,URINE NEGATIVE (NEGATIVE); PH,URINE 6.5 (5.0-8.0); PROTEIN,URINE 30-70 mg/dL (NEGATIVE); SPECIFIC GRAVITIY, URINE 1.021 (1.003-1.030); UROBILINOGEN,URINE <=1.0 mg/dL (<=1.0)
[2024-05-09 05:47] LABS: BACTERIA,URINE Rare /HPF (None Seen); RBC,URINE 0-2 /HPF (0-2); WBC,URINE 0-2 /HPF (0-5)
[2024-05-09 06:08] LABS: BASOPHILS % (AUTO) 0.5 % (0.0-2.0); EOSINOPHILS % (AUTO) 2.5 % (1.0-6.0); HEMATOCRIT 25.9 % (41-53); HEMOGLOBIN 8.7 g/dL (13.5-17.5); LYMPHOCYTES # (AUTO) 0.7 K/uL (1.0-4.8); LYMPHOCYTES % (AUTO) 18.9 % (22.0-44.0); MEAN CORPUSCULAR HEMOGLOBIN 30.1 pg (26.0-34.0); MEAN CORPUSCULAR HGB CONC 33.4 G/dL (31.0-37.0); MEAN CORPUSCULAR VOLUME 90 fL (80-100); MONOCYTES # (AUTO) 0.5 K/uL (0.1-1.0); MONOCYTES % (AUTO) 12.7 % (2.0-9.0); NEUTROPHILS # (AUTO) 2.6 K/uL (1.8-7.7); NEUTROPHILS % (AUTO) 65.4 % (40.0-70.0); PLATELET COUNT (AUTO) 85 K/uL (150-450); RED BLOOD CELL COUNT(AUTO) 2.88 MIL/uL (4.50-5.90); RED CELL DISTRIBUTION WIDTH 16.9 % (11.5-14.5); WHITE BLOOD COUNT (AUTO) 3.9 K/uL (4.5-11.0)
[2024-05-09 06:10] LABS: ANION GAP 13 mmol/L (8-16); CALCIUM, TOTAL 8.6 mg/dL (8.8-10.5); CARBON DIOXIDE 25 mmol/L (22-29); CHLORIDE 103 mmol/L (98-107); GLOMERULAR FILTR. RATE CALC 48 mL/min (>60); GLUCOSE,RANDOM 298 mg/dL (70-110); POTASSIUM 4.9 mmol/L (3.5-5.1); SODIUM SERUM 141 mmol/L (136-145); UREA NITROGEN, BLOOD 30 mg/dL (7-18)
[2024-05-09 06:14] LABS: ALANINE AMINOTRANSFERASE 89 U/L (12-78); ALBUMIN 3.5 g/dL (3.4-5.0); ALKALINE PHOSPHATASE 173 U/L (46-116); ASPARTATE AMINOTRANSFERASE 53 U/L (15-37); BILIRUBIN,TOTAL 0.3 mg/dL (0.1-1.0); LIPASE < 10 U/L (16-77)
[2024-05-09] MEDS: SODIUM CHLORIDE 0.9% 1,000 ML IV ONE (06:31)
[2024-05-09] MEDS: ONDANSETRON HCL 4 MG/2 ML VIAL IVP ONE (06:31)
[2024-05-09] MEDS: HYDROmorphone HCL 2 MG/ML SYRINGE IVP ONE (06:32)
[2024-05-09 06:48] VITALS: BP 135/77; PULSE 110; RESP 16; O2SAT 100
[2024-05-09] MEDS: DiphenhydrAMINE HCL 50 MG/ML VIAL IVP ONE (07:25)
[2024-05-09] MEDS ORDERED: SULFACETAMIDE SODIUM 10% 15 ML OPHTHALMIC SOLUTION OU ONE (08:00)
[2024-05-09] MEDS ORDERED: TraMADol HCL 50 MG TABLET PO PRN ×2 (10:30→11:00)
== END 2024-05-09 13:26 | disposition left against medical advice (07) | DRG 641 ==
LOC: EMS 05:03 → EDH 08:28 → 4E 10:10
PROVIDERS: ADMIT Internal Medicine; ATTEND Internal Medicine
DX: E86.0 Dehydration (principal); Z94.0 Kidney transplant status; E11.42 Type 2 diabetes mellitus with diabetic polyneuropathy; F41.9 Anxiety disorder, unspecified; Z53.29 Procedure and treatment not carried out because of patient's decision for other reasons; Z87.442 Personal history of urinary calculi; Z88.5 Allergy status to narcotic agent; Z88.6 Allergy status to analgesic agent; Z91.041 Radiographic dye allergy status
CPT/HCPCS: 71045; 80048; 80076; 81001; 83690; 85025; 96361; 96374; 96375; 99285; G0378; J1171; J1200; J2405; J7030; 36415-L1; 36415-TC

== ENCOUNTER 2024-05-15 17:57 | Emergency (ER) | payer BC, OTHER | END 2024-05-15 18:49 | disposition left against medical advice (07) | LOC: EMS 17:57 | DX: Z53.21 Procedure and treatment not carried out due to patient leaving prior to being seen by health care provider (principal) ==

== ENCOUNTER 2024-05-26 05:47 | Inpatient (IN) | payer BC, OTHER ==
[~2024-05-26] VITALS: Ht 167.6 cm; Wt 43.2 kg
[2024-05-26 06:12] VITALS: TEMP 97.9
[2024-05-26] MEDS ORDERED: 0.9% SODIUM CHLORIDE 10 ML SYRINGE IVP PRN (06:30)
[2024-05-26] MEDS: IOHEXOL 9 MG/ML 500 ML BOTTLE PO ONE (07:45)
[2024-05-26] MEDS: HYDROmorphone HCL 2 MG/ML SYRINGE IVP ONE ×2 (07:46→12:11)
[2024-05-26] MEDS: DiphenhydrAMINE HCL 50 MG/ML VIAL IVP ONE ×2 (07:46→10:28)
[2024-05-26] MEDS: SODIUM CHLORIDE 0.9% 1,300 ML IV ONE (07:46)
[2024-05-26 07:47] LABS: BASOPHILS % (AUTO) 0.7 % (0.0-2.0); EOSINOPHILS % (AUTO) 7.9 % (1.0-6.0); HEMATOCRIT 28.3 % (41-53); HEMOGLOBIN 9.4 g/dL (13.5-17.5); LYMPHOCYTES # (AUTO) 0.7 K/uL (1.0-4.8); LYMPHOCYTES % (AUTO) 21.4 % (22.0-44.0); MEAN CORPUSCULAR HEMOGLOBIN 30.5 pg (26.0-34.0); MEAN CORPUSCULAR HGB CONC 33.1 G/dL (31.0-37.0); MEAN CORPUSCULAR VOLUME 92 fL (80-100); MONOCYTES # (AUTO) 0.2 K/uL (0.1-1.0); MONOCYTES % (AUTO) 7.5 % (2.0-9.0); NEUTROPHILS % (AUTO) 62.5 % (40.0-70.0); PLATELET COUNT (AUTO) 151 K/uL (150-450); RED BLOOD CELL COUNT(AUTO) 3.08 MIL/uL (4.50-5.90); RED CELL DISTRIBUTION WIDTH 17.9 % (11.5-14.5); WHITE BLOOD COUNT (AUTO) 3.2 K/uL (4.5-11.0)
[2024-05-26] MEDS: CefTRIAXone 1 GM/DEXTROSE 50 ML IV ONE (07:47)
[2024-05-26 07:57] LABS: ANION GAP 7 mmol/L (8-16); CALCIUM, TOTAL 8.3 mg/dL (8.8-10.5); CARBON DIOXIDE 22 mmol/L (22-29); CHLORIDE 106 mmol/L (98-107); CREATININE 1.79 mg/dL (0.60-1.30); GLOMERULAR FILTR. RATE CALC 45 mL/min (>60); GLUCOSE,RANDOM 260 mg/dL (70-110); POTASSIUM 5.9 mmol/L (3.5-5.1); SODIUM SERUM 135 mmol/L (136-145); UREA NITROGEN, BLOOD 26 mg/dL (7-18)
[2024-05-26 07:58] LABS: PROTHROMBIN TIME 10.8 SEC (9.4-11.6)
[2024-05-26 08:02] LABS: ALBUMIN 3.2 g/dL (3.4-5.0); BILIRUBIN,DIRECT 0.1 mg/dL (0.00-0.20); BILIRUBIN,TOTAL 0.3 mg/dL (0.1-1.0); TOTAL PROTEIN, SERUM 6.8 g/dL (6.4-8.2)
[2024-05-26 08:15] LABS: LACTIC ACID 2.1 mmol/L (0.4-2.0)
[2024-05-26 08:24] LABS: APPEARANCE,URINE CLEAR (CLEAR); BILIRUBIN,URINE NEGATIVE (NEGATIVE); COLOR,URINE LIGHT YELLOW (YELLOW); GLUCOSE, URINE (UA) 150-200 mg/dL (NEGATIVE); KETONES,URINE NEGATIVE (NEGATIVE); LEUKOCYTE ESTERASE ,URINE NEGATIVE (NEGATIVE); NITRATE,URINE NEGATIVE (NEGATIVE); OCCULT BLOOD,URINE NEGATIVE (NEGATIVE); PROTEIN,URINE TRACE mg/dL (NEGATIVE); SPECIFIC GRAVITIY, URINE 1.016 (1.003-1.030); UROBILINOGEN,URINE <=1.0 mg/dL (<=1.0)
[2024-05-26 08:25] LABS: BACTERIA,URINE None Seen /HPF (None Seen); RBC,URINE None Seen /HPF (0-2); WBC,URINE None Seen /HPF (0-5)
[2024-05-26] MEDS: SODIUM BICARBONATE 75 MEQ in SODIUM CHLORIDE 0.45% 1,000 ML IV ONE (11:00)
[2024-05-26] MEDS: SODIUM ZIRCONIUM CYCLOSILICATE 5 GM POWDER PACKET PO ONE (11:00)
[2024-05-26 12:49] VITALS: BP 135/70; PULSE 82; RESP 16; O2SAT 100
[2024-05-26] MEDS ORDERED: SODIUM CHLORIDE 0.9% 1,000 ML IV ONE (14:00)
[2024-05-26] MEDS ORDERED: AMYLASE/LIPASE/PROTEASE 60/12/38 MU DR CAPSULE PO SCH (14:00)
[2024-05-26] MEDS ORDERED: BISACODYL 10 MG RECTAL RECTAL SUPPOSITORY PR PRN (14:00)
[2024-05-26] MEDS ORDERED: ONDANSETRON HCL 4 MG/2 ML VIAL IVP PRN (14:00)
[2024-05-26] MEDS ORDERED: MAGNESIUM HYDROXIDE SUSPENSION 30 ML UDCUP PO PRN (14:00)
[2024-05-26] MEDS ORDERED: ZOLPIDEM TARTRATE 5 MG TABLET PO PRN (14:00)
[2024-05-26] MEDS ORDERED: MINERAL OIL 133 ML ENEMA PR SCH (14:30)
[2024-05-26] MEDS ORDERED: [UNRECOGNIZED DRUG - OTHER] PO SCH (21:00)
[2024-05-26] MEDS ORDERED: DOCUSATE SODIUM 100 MG CAPSULE PO SCH (21:00)
[2024-05-27] MEDS ORDERED: PredniSONE 5 MG TABLET PO SCH (09:00)
[2024-05-27] MEDS ORDERED: PANTOPRAZOLE SODIUM 40 MG DR TABLET PO SCH (09:00)
== END 2024-05-26 14:45 | disposition left against medical advice (07) | DRG 388 ==
LOC: EMS 05:48 → EDH 10:43
PROVIDERS: ADMIT Internal Medicine; ATTEND Internal Medicine
PROC: 0D9670Z Drainage of Stomach with Drainage Device, Via Natural or Artificial Opening (ICD-10-PCS; principal; 2024-05-26)
DX: K56.600 Partial intestinal obstruction, unspecified as to cause (principal); E43 Unspecified severe protein-calorie malnutrition; N17.9 Acute kidney failure, unspecified; Z68.1 Body mass index [BMI] 19.9 or less, adult; F11.20 Opioid dependence, uncomplicated; K86.1 Other chronic pancreatitis; T86.19 Other complication of kidney transplant; K56.7 Ileus, unspecified; F41.9 Anxiety disorder, unspecified; E87.6 Hypokalemia; E11.40 Type 2 diabetes mellitus with diabetic neuropathy, unspecified; Z53.29 Procedure and treatment not carried out because of patient's decision for other reasons; Y83.8 Other surgical procedures as the cause of abnormal reaction of the patient, or of later complication, without mention of misadventure at the time of the procedure; Z79.899 Other long term (current) drug therapy; Z88.8 Allergy status to other drugs, medicaments and biological substances; Z88.3 Allergy status to other anti-infective agents; Z88.5 Allergy status to narcotic agent; Z88.1 Allergy status to other antibiotic agents; Z87.442 Personal history of urinary calculi; Z93.1 Gastrostomy status; Z91.041 Radiographic dye allergy status; Z88.6 Allergy status to analgesic agent; Y92.89 Other specified places as the place of occurrence of the external cause
CPT/HCPCS: 71045; 74176; 80048; 80076; 81001; 83605; 84145; 85025; 85610; 87040; 93005; 96361; 96365; 96375; 96376; 99285; G0378; J0696; J1171; J1200; J3490; J7030; 36415-L1; 36415-TC

== ENCOUNTER 2024-06-15 03:12 | Inpatient (IN) | payer BC, OTHER ==
[~2024-06-15] VITALS: Ht 170.2 cm; Wt 43.2 kg
[2024-06-15] MEDS: SODIUM CHLORIDE 0.9% 1,000 ML IV ONE (05:03)
[2024-06-15] MEDS: HYDROmorphone HCL 2 MG/ML SYRINGE IVP ONE (05:03)
[2024-06-15] MEDS: ONDANSETRON HCL 4 MG/2 ML VIAL IVP ONE (05:04)
[2024-06-15 05:09] LABS: BASOPHILS % (AUTO) 0.4 % (0.0-2.0); EOSINOPHILS % (AUTO) 3.5 % (1.0-6.0); HEMATOCRIT 29.2 % (41-53); HEMOGLOBIN 9.7 g/dL (13.5-17.5); LYMPHOCYTES # (AUTO) 0.9 K/uL (1.0-4.8); LYMPHOCYTES % (AUTO) 22.9 % (22.0-44.0); MEAN CORPUSCULAR HEMOGLOBIN 30.3 pg (26.0-34.0); MEAN CORPUSCULAR HGB CONC 33.2 G/dL (31.0-37.0); MEAN CORPUSCULAR VOLUME 91 fL (80-100); MONOCYTES # (AUTO) 0.4 K/uL (0.1-1.0); MONOCYTES % (AUTO) 9.8 % (2.0-9.0); NEUTROPHILS # (AUTO) 2.6 K/uL (1.8-7.7); NEUTROPHILS % (AUTO) 63.4 % (40.0-70.0); PLATELET COUNT (AUTO) 161 K/uL (150-450); RED BLOOD CELL COUNT(AUTO) 3.21 MIL/uL (4.50-5.90); RED CELL DISTRIBUTION WIDTH 17.8 % (11.5-14.5); WHITE BLOOD COUNT (AUTO) 4.1 K/uL (4.5-11.0)
[2024-06-15 05:26] LABS: ANION GAP 7 mmol/L (8-16); CALCIUM, TOTAL 8.9 mg/dL (8.8-10.5); CARBON DIOXIDE 24 mmol/L (22-29); CHLORIDE 110 mmol/L (98-107); CREATININE 1.85 mg/dL (0.60-1.30); GLOMERULAR FILTR. RATE CALC 43 mL/min (>60); GLUCOSE,RANDOM 84 mg/dL (70-110); POTASSIUM 5.3 mmol/L (3.5-5.1); SODIUM SERUM 141 mmol/L (136-145); UREA NITROGEN, BLOOD 39 mg/dL (7-18)
[2024-06-15 05:27] LABS: ALBUMIN 3.1 g/dL (3.4-5.0); BILIRUBIN,DIRECT 0.1 mg/dL (0.00-0.20); BILIRUBIN,TOTAL 0.2 mg/dL (0.1-1.0); LIPASE < 10 U/L (16-77); TOTAL PROTEIN, SERUM 6.9 g/dL (6.4-8.2)
[2024-06-15] MEDS: SODIUM ZIRCONIUM CYCLOSILICATE 10 GM POWDER PACKET PO ONE (06:11)
[2024-06-15] MEDS ORDERED: MAGNESIUM HYDROXIDE SUSPENSION 30 ML UDCUP PO PRN (06:30)
[2024-06-15] MEDS ORDERED: ZOLPIDEM TARTRATE 5 MG TABLET PO PRN (06:30)
[2024-06-15] MEDS ORDERED: BISACODYL 10 MG RECTAL RECTAL SUPPOSITORY PR PRN (06:30)
[2024-06-15] MEDS: HEPARIN SODIUM,PORCINE 5,000 UNITS/ML VIAL SQ SCH (07:38)
[2024-06-15] MEDS: HYDROmorphone HCL 2 MG/ML SYRINGE IVP PRN (07:40)
[2024-06-15] MEDS: ONDANSETRON HCL 4 MG/2 ML VIAL IVP PRN (07:40)
[2024-06-15 07:53] LABS: TROPONIN I-HIGH SENSITIVITY 6 ng/L (<76)
[2024-06-15] MEDS: PANTOPRAZOLE SODIUM 40 MG/VIAL IVP SCH (08:33)
[2024-06-15] MEDS: DOCUSATE SODIUM 100 MG CAPSULE PO SCH (08:33)
[2024-06-15 10:00] LABS: APPEARANCE,URINE CLEAR (CLEAR); BILIRUBIN,URINE NEGATIVE (NEGATIVE); COLOR,URINE COLORLESS (YELLOW); GLUCOSE, URINE (UA) NEGATIVE (NEGATIVE); KETONES,URINE NEGATIVE (NEGATIVE); LEUKOCYTE ESTERASE ,URINE NEGATIVE (NEGATIVE); NITRATE,URINE NEGATIVE (NEGATIVE); OCCULT BLOOD,URINE NEGATIVE (NEGATIVE); PROTEIN,URINE NEGATIVE (NEGATIVE); UROBILINOGEN,URINE <=1.0 mg/dL (<=1.0)
[2024-06-15 10:03] LABS: AMPHET/METH SCREEN,URINE NEGATIVE (NEGATIVE); BARBITURATE SCREEN, URINE NEGATIVE (NEGATIVE); BENZODIAZEPINES SCREEN,URINE NEGATIVE (NEGATIVE); CANNABINOID SCREEN,URINE NEGATIVE (NEGATIVE); COCAINE SCREEN,URINE NEGATIVE (NEGATIVE); METHADONE SCREEN, URINE NEGATIVE (NEGATIVE); OPIATE SCREEN,URINE NEGATIVE (NEGATIVE); PHENCYCLIDINE SCREEN,URINE NEGATIVE (NEGATIVE)
[2024-06-15 10:04] LABS: ALCOHOL, URINE DRUG SCREEN NEGATIVE (NEGATIVE)
[2024-06-15 11:07] VITALS: BP 120/82; PULSE 83; RESP 18; TEMP 97.8; O2SAT 100
[2024-06-15] MEDS: DiphenhydrAMINE HCL 50 MG/ML VIAL IVP PRN (11:07)
[2024-06-15 16:23] VITALS: BP 117/68; PULSE 72; RESP 18; TEMP 98; O2SAT 99
[2024-06-15 20:06] VITALS: BP 124/95; PULSE 87; RESP 18; TEMP 97.7; O2SAT 98
[2024-06-15] MEDS: TACROLIMUS 1 MG CAPSULE PO SCH (20:17)
[2024-06-16 05:03] VITALS: BP 116/83; PULSE 75; RESP 18; TEMP 97.5; O2SAT 99
[2024-06-16 08:48] VITALS: BP 127/92; PULSE 71; RESP 18; TEMP 97.8; O2SAT 96
[2024-06-16] MEDS: PredniSONE 5 MG TABLET PO SCH (09:03)
[2024-06-16] MEDS ORDERED: INSULIN LISPRO 100 UNITS/ML SQ PRN (11:15)
[2024-06-16] MEDS ORDERED: DEXTROSE 50%-WATER 25 GM/50 ML SYRINGE IVP PRN (11:15)
[2024-06-16 12:08] LABS: CALCIUM, TOTAL 8.6 mg/dL (8.8-10.5); CREATININE 1.51 mg/dL (0.60-1.30); POTASSIUM 4.8 mmol/L (3.5-5.1)
[2024-06-16] MEDS: SODIUM CHLORIDE 0.9% 1,000 ML IV SCH (15:09)
[2024-06-16 15:58] VITALS: BP 107/70; PULSE 92; RESP 18; TEMP 98; O2SAT 100
[2024-06-16 19:38] VITALS: BP 126/92; PULSE 103; RESP 20; TEMP 98.2; O2SAT 98
[2024-06-17 09:22] VITALS: BP 121/89; PULSE 90; RESP 18; TEMP 97.9; O2SAT 100
[2024-06-17 15:18] VITALS: BP 138/90; PULSE 91; RESP 18; TEMP 98.2; O2SAT 97
== END 2024-06-17 18:07 | disposition home or self-care (01) | DRG 682 ==
LOC: EMS 03:14 → EDH 06:30 → 6S 10:13 → 4E 06-16 13:34
PROVIDERS: ADMIT Internal Medicine; ATTEND Internal Medicine
DX: N17.9 Acute kidney failure, unspecified (principal); E43 Unspecified severe protein-calorie malnutrition; E84.9 Cystic fibrosis, unspecified; F11.20 Opioid dependence, uncomplicated; T86.19 Other complication of kidney transplant; Z94.2 Lung transplant status; E84.8 Cystic fibrosis with other manifestations; Z94.0 Kidney transplant status; Z68.1 Body mass index [BMI] 19.9 or less, adult; G89.29 Other chronic pain; N20.0 Calculus of kidney; D63.8 Anemia in other chronic diseases classified elsewhere; K59.00 Constipation, unspecified; Y83.8 Other surgical procedures as the cause of abnormal reaction of the patient, or of later complication, without mention of misadventure at the time of the procedure; F41.9 Anxiety disorder, unspecified; E11.40 Type 2 diabetes mellitus with diabetic neuropathy, unspecified; E11.22 Type 2 diabetes mellitus with diabetic chronic kidney disease; N18.9 Chronic kidney disease, unspecified; Y92.89 Other specified places as the place of occurrence of the external cause; Z87.442 Personal history of urinary calculi; Z88.5 Allergy status to narcotic agent; Z88.6 Allergy status to analgesic agent; Z91.041 Radiographic dye allergy status
CPT/HCPCS: 74176; 80048; 80076; 80307; 81003; 83690; 84484; 85025; 93005; 96361; 96374; 96375; 99285; G0378; J1171; J1200; J1644; J2405; J2470; J7030; J7507; 36415-L1; 36415-TC

== ENCOUNTER 2024-09-02 00:25 | Emergency (ER) | payer BC, OTHER ==
[~2024-09-02] VITALS: Ht 170.2 cm; Wt 44.5 kg
[2024-09-02 00:31] VITALS: TEMP 98.1
[2024-09-02 01:22] LABS: CALCIUM, TOTAL 9.5 mg/dL (8.8-10.5); CREATININE 2.57 mg/dL (0.60-1.30)
[2024-09-02 01:31] LABS: POTASSIUM 6.5 mmol/L (3.5-5.1)
[2024-09-02 01:35] LABS: BILIRUBIN,DIRECT 0.1 mg/dL (0.00-0.20); BILIRUBIN,TOTAL 0.3 mg/dL (0.1-1.0)
[2024-09-02 01:36] LABS: ALBUMIN 3.9 g/dL (3.4-5.0); TOTAL PROTEIN, SERUM 7.5 g/dL (6.4-8.2); TROPONIN I-HIGH SENSITIVITY 5 ng/L (<76)
[2024-09-02] MEDS: SODIUM ZIRCONIUM CYCLOSILICATE 10 GM POWDER PACKET PO ONE (02:08)
[2024-09-02] MEDS: ONDANSETRON HCL 4 MG/2 ML VIAL IVP ONE (03:26)
[2024-09-02 03:30] VITALS: BP 118/80; PULSE 98; RESP 18; O2SAT 98
[2024-09-02 03:33] LABS: BASOPHILS % (AUTO) 0.4 % (0.0-2.0); HEMATOCRIT 27.3 % (41-53); HEMOGLOBIN 9.4 g/dL (13.5-17.5); LYMPHOCYTES # (AUTO) 0.8 K/uL (1.0-4.8); LYMPHOCYTES % (AUTO) 19.8 % (22.0-44.0); MEAN CORPUSCULAR HEMOGLOBIN 31.2 pg (26.0-34.0); MEAN CORPUSCULAR HGB CONC 34.4 G/dL (31.0-37.0); MEAN CORPUSCULAR VOLUME 91 fL (80-100); MONOCYTES # (AUTO) 0.4 K/uL (0.1-1.0); MONOCYTES % (AUTO) 9.8 % (2.0-9.0); NEUTROPHILS # (AUTO) 2.8 K/uL (1.8-7.7); PLATELET COUNT (AUTO) 107 K/uL (150-450); RED BLOOD CELL COUNT(AUTO) 3.01 MIL/uL (4.50-5.90); RED CELL DISTRIBUTION WIDTH 18.3 % (11.5-14.5)
[2024-09-02 03:45] LABS: ALBUMIN 3.4 g/dL (3.4-5.0); BILIRUBIN,DIRECT 0.1 mg/dL (0.00-0.20); BILIRUBIN,TOTAL 0.3 mg/dL (0.1-1.0); TOTAL PROTEIN, SERUM 6.4 g/dL (6.4-8.2)
== END 2024-09-02 04:37 | disposition left against medical advice (07) ==
LOC: EMS 00:25
DX: K31.84 Gastroparesis (principal); E11.43 Type 2 diabetes mellitus with diabetic autonomic (poly)neuropathy; E84.9 Cystic fibrosis, unspecified; F41.9 Anxiety disorder, unspecified; E87.5 Hyperkalemia; Z88.0 Allergy status to penicillin; Z88.5 Allergy status to narcotic agent; Z88.8 Allergy status to other drugs, medicaments and biological substances; Z79.52 Long term (current) use of systemic steroids; Z79.621 Long term (current) use of calcineurin inhibitor; Z90.49 Acquired absence of other specified parts of digestive tract; Z91.041 Radiographic dye allergy status; Z94.0 Kidney transplant status
CPT/HCPCS: 99284; 96374; 80048; 83690; 84484; 85025; 36415; 93005; 80076; J2405

== ENCOUNTER 2025-02-01 09:00 | Inpatient (IN) | payer BC ==
[~2025-02-01] VITALS: Ht 167.6 cm; Wt 42.2 kg
[2025-02-01 10:14] LABS: PLATELET COUNT (AUTO) 114 K/uL (150-450); RED BLOOD CELL COUNT(AUTO) 3.57 MIL/uL (4.50-5.90); RED CELL DISTRIBUTION WIDTH 15.5 % (11.5-14.5); WHITE BLOOD COUNT (AUTO) 3.4 K/uL (4.5-11.0)
[2025-02-01 10:19] LABS: CREATININE 1.5 mg/dL (0.60-1.30); GLOMERULAR FILTR. RATE CALC 55.0 mL/min (>60); GLUCOSE,RANDOM 176.0 mg/dL (70-110); SODIUM SERUM 142.0 mmol/L (136-145); UREA NITROGEN, BLOOD 18.0 mg/dL (7-18)
[2025-02-01 10:23] LABS: CALCIUM, TOTAL 8.9 mg/dL (8.8-10.5)
[2025-02-01] MEDS ORDERED: ONDANSETRON HCL 4 MG/2 ML VIAL IVP PRN ×2 (12:00→18:00)
[2025-02-01] MEDS: SODIUM CHLORIDE 0.9% 1,000 ML IV ONE (12:00)
[2025-02-01 14:40] VITALS: BP 123/77; PULSE 90; RESP 20; TEMP 98.4; O2SAT 100
[2025-02-01] MEDS ORDERED: ALBUTEROL SULFATE 2.5 MG/0.5 ML NEB SOLUTION NEB PRN ×2 (18:00→20:15)
[2025-02-01] MEDS ORDERED: IPRATROPIUM BROMIDE 0.5 MG/2.5 ML NEB SOLUTION NEB PRN ×2 (18:00→20:15)
[2025-02-01] MEDS ORDERED: MAGNESIUM HYDROXIDE SUSPENSION 30 ML UDCUP PO PRN ×2 (18:00→20:15)
[2025-02-01] MEDS ORDERED: ZOLPIDEM TARTRATE 5 MG TABLET PO PRN ×2 (18:00→20:15)
[2025-02-01] MEDS ORDERED: MORPHINE SULFATE 4 MG/ML SYRINGE IVP PRN (18:00)
[2025-02-01] MEDS ORDERED: BISACODYL 10 MG RECTAL RECTAL SUPPOSITORY PR PRN ×2 (18:00→20:15)
[2025-02-01 20:02] VITALS: BP 118/77; PULSE 82; RESP 18; TEMP 98.1; O2SAT 100
[2025-02-01] MEDS ORDERED: ACETAMINOPHEN 325 MG TABLET PO PRN (20:15)
[2025-02-01] MEDS ORDERED: [UNRECOGNIZED DRUG - OTHER] PO SCH (21:00)
[2025-02-01] MEDS: TACROLIMUS 1 MG CAPSULE PO SCH (21:00)
[2025-02-01] MEDS ORDERED: [UNRECOGNIZED DRUG - OTHER] PO SCH (21:00)
[2025-02-01] MEDS: HEPARIN SODIUM,PORCINE 5,000 UNITS/ML VIAL SQ SCH (23:04)
[2025-02-01] MEDS: SODIUM CHLORIDE 0.9% 1,000 ML IV SCH (23:27)
[2025-02-02] MEDS ORDERED: HEPARIN SODIUM,PORCINE 5,000 UNITS/ML VIAL SQ SCH
[2025-02-02 04:58] VITALS: BP 129/79; PULSE 80; RESP 18; TEMP 98.2; O2SAT 100
[2025-02-02 07:48] VITALS: BP 134/86; PULSE 83; RESP 16; TEMP 98.3; O2SAT 100
[2025-02-02] MEDS: PANTOPRAZOLE SODIUM 40 MG DR TABLET PO SCH (08:24)
[2025-02-02] MEDS ORDERED: PANTOPRAZOLE SODIUM 40 MG DR TABLET PO SCH (09:00)
[2025-02-02 11:57] LABS: CALCIUM, TOTAL 8.6 mg/dL (8.8-10.5); CREATININE 1.57 mg/dL (0.60-1.30); GLOMERULAR FILTR. RATE CALC 52.0 mL/min (>60); GLUCOSE,RANDOM 129.0 mg/dL (70-110); SODIUM SERUM 137.0 mmol/L (136-145); UREA NITROGEN, BLOOD 17.0 mg/dL (7-18)
[2025-02-02] MEDS: SODIUM CHLORIDE 0.45% 1,000 ML IV SCH (16:07)
[2025-02-02] MEDS: ONDANSETRON HCL 4 MG/2 ML VIAL IVP PRN (17:04)
[2025-02-02 18:21] LABS: GLUCOMETER DEV NAME(LOC) 6N.2C; GLUCOSE,POINT OF CARE 230 MG/DL (70-110)
[2025-02-02 18:21] LABS: GLUCOMETER DEV NAME(LOC) 6N.2C; GLUCOSE,POINT OF CARE 127 MG/DL (70-110)
[2025-02-02 19:51] VITALS: BP 128/84; PULSE 79; RESP 17; TEMP 98.1; O2SAT 100
[2025-02-02] MEDS ORDERED: DEXTROSE 50%-WATER 25 GM/50 ML SYRINGE IVP PRN (21:00)
[2025-02-02] MEDS: INSULIN LISPRO 100 UNITS/ML SQ PRN (21:27)
[2025-02-03 05:31] VITALS: BP 137/87; PULSE 84; RESP 19; TEMP 97.7; O2SAT 100
[2025-02-03 08:11] LABS: GLUCOMETER DEV NAME(LOC) 6N.2C; GLUCOSE,POINT OF CARE 104 MG/DL (70-110)
[2025-02-03 08:11] LABS: GLUCOMETER DEV NAME(LOC) 6N.2C; GLUCOSE,POINT OF CARE 198 MG/DL (70-110)
[2025-02-03 08:24] LABS: PLATELET COUNT (AUTO) 91 K/uL (150-450); RED BLOOD CELL COUNT(AUTO) 3.52 MIL/uL (4.50-5.90); RED CELL DISTRIBUTION WIDTH 15.5 % (11.5-14.5); WHITE BLOOD COUNT (AUTO) 3.7 K/uL (4.5-11.0)
[2025-02-03 08:41] LABS: CALCIUM, TOTAL 9.1 mg/dL (8.8-10.5); CREATININE 1.52 mg/dL (0.60-1.30); GLOMERULAR FILTR. RATE CALC 54.0 mL/min (>60); GLUCOSE,RANDOM 87.0 mg/dL (70-110); SODIUM SERUM 138.0 mmol/L (136-145); UREA NITROGEN, BLOOD 15.0 mg/dL (7-18)
[2025-02-03 08:56] VITALS: BP 120/87; PULSE 93; RESP 17; TEMP 97.7; O2SAT 100
[2025-02-03 09:04] LABS: PHOSPHORUS 3.6 mg/dL (2.5-4.9)
[2025-02-03 11:51] LABS: GLUCOMETER DEV NAME(LOC) 6N.2C; GLUCOSE,POINT OF CARE 196 MG/DL (70-110)
[2025-02-03 18:05] LABS: GLUCOMETER DEV NAME(LOC) 6N.2C; GLUCOSE,POINT OF CARE 150 MG/DL (70-110)
[2025-02-03 19:49] VITALS: BP 145/94; PULSE 104; RESP 19; TEMP 98.1; O2SAT 100
[2025-02-04 08:38] LABS: CALCIUM, TOTAL 9.0 mg/dL (8.8-10.5); CREATININE 1.66 mg/dL (0.60-1.30); GLOMERULAR FILTR. RATE CALC 49.0 mL/min (>60); GLUCOSE,RANDOM 104.0 mg/dL (70-110); SODIUM SERUM 139.0 mmol/L (136-145); UREA NITROGEN, BLOOD 15.0 mg/dL (7-18)
[2025-02-04 08:39] LABS: PHOSPHORUS 3.5 mg/dL (2.5-4.9)
[2025-02-04 12:15] VITALS: BP 128/88; PULSE 84; RESP 18; TEMP 98.8; O2SAT 100
[2025-02-04 12:54] LABS: COVID AG,FIA SOURCE NASAL SWAB
[2025-02-04 13:22] LABS: INFLUENZA TYPE A NEGATIVE FOR TYPE A (NEGATIVE); INFLUENZA TYPE B NEGATIVE FOR TYPE B (NEGATIVE); SARS-COV2 (COVID) ANTIGEN,FIA Negative (Negative)
[2025-02-04 16:46] VITALS: BP 123/85; PULSE 88; RESP 18; TEMP 98.2; O2SAT 98
[2025-02-04 20:56] VITALS: BP 133/97; PULSE 102; RESP 18; TEMP 98.2; O2SAT 100
[2025-02-05 04:59] VITALS: BP 109/86; PULSE 93; RESP 18; TEMP 97.7; O2SAT 100
[2025-02-05 07:29] LABS: CALCIUM, TOTAL 9.0 mg/dL (8.8-10.5); CREATININE 1.83 mg/dL (0.60-1.30); GLOMERULAR FILTR. RATE CALC 44.0 mL/min (>60); GLUCOSE,RANDOM 132.0 mg/dL (70-110); SODIUM SERUM 139.0 mmol/L (136-145); UREA NITROGEN, BLOOD 12.0 mg/dL (7-18)
[2025-02-05 07:35] LABS: PHOSPHORUS 3.8 mg/dL (2.5-4.9)
[2025-02-05 09:13] LABS: ASPARTATE AMINOTRANSFERASE 30.0 U/L (15-37); TOTAL PROTEIN, SERUM 7.1 g/dL (6.4-8.2)
[2025-02-05 11:45] LABS: GLUCOMETER DEV NAME(LOC) 6N.2C; GLUCOSE,POINT OF CARE 196 MG/DL (70-110)
[2025-02-05 11:46] LABS: GLUCOMETER DEV NAME(LOC) 6N.2C; GLUCOSE,POINT OF CARE 100 MG/DL (70-110)
[2025-02-05 11:46] LABS: GLUCOMETER DEV NAME(LOC) 6N.2C; GLUCOSE,POINT OF CARE 231 MG/DL (70-110)
[2025-02-05 11:46] LABS: GLUCOMETER DEV NAME(LOC) 6N.2C; GLUCOSE,POINT OF CARE 92 MG/DL (70-110)
[2025-02-05 16:00] VITALS: BP 126/88; PULSE 110; RESP 20; TEMP 98.2; O2SAT 100
[2025-02-05] MEDS: ALBUMIN HUMAN 25%-25GM/100ML 100 ML IV SCH (18:00)
[2025-02-05 18:36] LABS: GLUCOSE,POINT OF CARE 310 MG/DL (70-110)
[2025-02-06 05:54] VITALS: BP 138/92; PULSE 80; RESP 18; TEMP 97.7; O2SAT 98
[2025-02-06 08:26] VITALS: BP 115/81; PULSE 81; RESP 20; TEMP 97.5; O2SAT 100
[2025-02-06 09:14] LABS: CALCIUM, TOTAL 8.9 mg/dL (8.8-10.5); CREATININE 1.82 mg/dL (0.60-1.30); GLOMERULAR FILTR. RATE CALC 44.0 mL/min (>60); GLUCOSE,RANDOM 93.0 mg/dL (70-110); SODIUM SERUM 139.0 mmol/L (136-145); UREA NITROGEN, BLOOD 15.0 mg/dL (7-18)
[2025-02-06 09:21] LABS: PHOSPHORUS 4.0 mg/dL (2.5-4.9)
[2025-02-06] MEDS: AMYLASE/LIPASE/PROTEASE 60/12/38 MU DR CAPSULE PO SCH (12:43)
[2025-02-06 17:41] LABS: GLUCOSE,POINT OF CARE 228 MG/DL (70-110)
[2025-02-06 19:41] LABS: GLUCOMETER DEV NAME(LOC) 6N.2C; GLUCOSE,POINT OF CARE 164 MG/DL (70-110)
[2025-02-06 19:42] VITALS: BP 136/88; PULSE 97; RESP 18; TEMP 98.1; O2SAT 98
[2025-02-06] MEDS ORDERED: SODIUM CHLORIDE 0.9% 1,000 ML ONE (20:35)
[2025-02-06 22:00] VITALS: BP 130/86
[2025-02-07 02:16] VITALS: BP 142/85; PULSE 100; RESP 18; TEMP 98.1; O2SAT 98
[2025-02-07 05:16] LABS: GLUCOMETER DEV NAME(LOC) 6N.2C; GLUCOSE,POINT OF CARE 230 MG/DL (70-110)
[2025-02-07 06:21] VITALS: BP 121/93; PULSE 100; RESP 18; TEMP 98; O2SAT 98
[2025-02-07 06:25] LABS: CALCIUM, TOTAL 9.5 mg/dL (8.8-10.5); CREATININE 1.67 mg/dL (0.60-1.30); GLOMERULAR FILTR. RATE CALC 49.0 mL/min (>60); GLUCOSE,RANDOM 90.0 mg/dL (70-110); SODIUM SERUM 138.0 mmol/L (136-145); UREA NITROGEN, BLOOD 17.0 mg/dL (7-18)
[2025-02-07 11:31] LABS: GLUCOMETER DEV NAME(LOC) 6N.2C; GLUCOSE,POINT OF CARE 135 MG/DL (70-110)
[2025-02-07 16:01] VITALS: BP 117/88; PULSE 99; RESP 18; TEMP 97.8; O2SAT 98
[2025-02-07 17:56] LABS: GLUCOMETER DEV NAME(LOC) 6N.2C; GLUCOSE,POINT OF CARE 190 MG/DL (70-110)
[2025-02-07 20:00] VITALS: BP 121/71; PULSE 89; RESP 20; TEMP 99.1; O2SAT 98
[2025-02-08 02:21] VITALS: BP 140/91; PULSE 78; RESP 18; TEMP 97.9; O2SAT 100
[2025-02-08 06:16] LABS: GLUCOMETER DEV NAME(LOC) 6N.2C; GLUCOSE,POINT OF CARE 106 MG/DL (70-110)
[2025-02-08 06:16] LABS: GLUCOMETER DEV NAME(LOC) 6N.2C; GLUCOSE,POINT OF CARE 213 MG/DL (70-110)
[2025-02-08 08:02] VITALS: BP 108/72; PULSE 83; RESP 20; TEMP 97.7; O2SAT 95
[2025-02-08 13:01] LABS: GLUCOSE,POINT OF CARE 251 MG/DL (70-110)
[2025-02-08 13:15] LABS: CALCIUM, TOTAL 9.1 mg/dL (8.8-10.5); CREATININE 1.7 mg/dL (0.60-1.30); GLOMERULAR FILTR. RATE CALC 48.0 mL/min (>60); GLUCOSE,RANDOM 249.0 mg/dL (70-110); SODIUM SERUM 133.0 mmol/L (136-145); UREA NITROGEN, BLOOD 19.0 mg/dL (7-18)
[2025-02-08 19:01] LABS: GLUCOSE,POINT OF CARE 293 MG/DL (70-110)
[2025-02-08 19:39] VITALS: BP 123/87; PULSE 91; RESP 18; TEMP 98.1; O2SAT 100
[2025-02-08 22:31] LABS: GLUCOSE,POINT OF CARE 157 MG/DL (70-110)
[2025-02-08 22:41] LABS: APPEARANCE,URINE CLEAR (CLEAR); GLUCOSE, URINE (UA) TRACE mg/dL (NEGATIVE); LEUKOCYTE ESTERASE ,URINE NEGATIVE (NEGATIVE); NITRATE,URINE NEGATIVE (NEGATIVE); OCCULT BLOOD,URINE NEGATIVE (NEGATIVE); SPECIFIC GRAVITIY, URINE 1.008 (1.003-1.030)
[2025-02-09 06:06] LABS: GLUCOSE,POINT OF CARE 138 MG/DL (70-110)
[2025-02-09 08:11] LABS: CALCIUM, TOTAL 9.5 mg/dL (8.8-10.5); CREATININE 1.66 mg/dL (0.60-1.30); GLOMERULAR FILTR. RATE CALC 49.0 mL/min (>60); GLUCOSE,RANDOM 138.0 mg/dL (70-110); SODIUM SERUM 134.0 mmol/L (136-145); UREA NITROGEN, BLOOD 20.0 mg/dL (7-18)
[2025-02-09 08:14] VITALS: BP 132/84; PULSE 80; RESP 20; TEMP 98; O2SAT 100
[2025-02-09 08:22] LABS: PHOSPHORUS 3.7 mg/dL (2.5-4.9)
[2025-02-09 08:41] LABS: GLUCOSE,POINT OF CARE 140 MG/DL (70-110)
[2025-02-09 15:10] LABS: GLUCOSE,POINT OF CARE 132 MG/DL (70-110)
== END 2025-02-09 14:41 | disposition home or self-care (01) | DRG 73 ==
LOC: EMS 09:01 → EDH 12:34 → 6S 14:44
PROVIDERS: ADMIT Hospitalist; ATTEND Hospitalist
DX: E11.43 Type 2 diabetes mellitus with diabetic autonomic (poly)neuropathy (principal); E43 Unspecified severe protein-calorie malnutrition; N18.6 End stage renal disease; T86.19 Other complication of kidney transplant; D61.818 Other pancytopenia; Z94.2 Lung transplant status; D69.6 Thrombocytopenia, unspecified; D63.8 Anemia in other chronic diseases classified elsewhere; D84.9 Immunodeficiency, unspecified; N17.9 Acute kidney failure, unspecified; E11.22 Type 2 diabetes mellitus with diabetic chronic kidney disease; E84.9 Cystic fibrosis, unspecified; K86.1 Other chronic pancreatitis; Z68.1 Body mass index [BMI] 19.9 or less, adult; Z20.822 Contact with and (suspected) exposure to COVID-19; K31.84 Gastroparesis; Y83.0 Surgical operation with transplant of whole organ as the cause of abnormal reaction of the patient, or of later complication, without mention of misadventure at the time of the procedure; E87.5 Hyperkalemia; F41.9 Anxiety disorder, unspecified; T50.995A Adverse effect of other drugs, medicaments and biological substances, initial encounter; G89.4 Chronic pain syndrome; Y92.89 Other specified places as the place of occurrence of the external cause; Z79.4 Long term (current) use of insulin; Z87.442 Personal history of urinary calculi; Z88.5 Allergy status to narcotic agent; Z88.6 Allergy status to analgesic agent; Z91.041 Radiographic dye allergy status; Z93.1 Gastrostomy status
CPT/HCPCS: 71045; 80048; 80076; 80197; 81003; 82271; 82962; 83690; 83735; 84100; 85025; 87070; 87186; 87205; 87804; 99285; J1171; J1200; J1644; J2405; J7030; J7507; P9046; 36415-L1; 36415-TC; J7613

== ENCOUNTER 2025-02-17 02:24 | Emergency (ER) | payer BC ==
[~2025-02-17] VITALS: Ht 167.6 cm; Wt 36.4 kg
[2025-02-17 02:29] VITALS: TEMP 98.2
[2025-02-17 03:05] LABS: COVID AG,FIA SOURCE NASAL SWAB
[2025-02-17] MEDS: ONDANSETRON HCL 4 MG/2 ML VIAL IM ONE (03:15)
[2025-02-17 03:20] LABS: SARS-COV2 (COVID) ANTIGEN,FIA Negative (Negative)
[2025-02-17 03:21] VITALS: BP 141/74; PULSE 110; RESP 20; O2SAT 100
[2025-02-17 03:21] LABS: INFLUENZA TYPE A NEGATIVE FOR TYPE A (NEGATIVE); INFLUENZA TYPE B NEGATIVE FOR TYPE B (NEGATIVE)
== END 2025-02-17 04:20 | disposition left against medical advice (07) ==
LOC: EMS 02:24
DX: R11.2 Nausea with vomiting, unspecified (principal); R10.9 Unspecified abdominal pain; R06.02 Shortness of breath; R00.0 Tachycardia, unspecified; E11.40 Type 2 diabetes mellitus with diabetic neuropathy, unspecified; Z79.621 Long term (current) use of calcineurin inhibitor; Z87.442 Personal history of urinary calculi; Z88.0 Allergy status to penicillin; Z90.49 Acquired absence of other specified parts of digestive tract; Z91.041 Radiographic dye allergy status; Z94.0 Kidney transplant status; Z79.52 Long term (current) use of systemic steroids; Z88.5 Allergy status to narcotic agent; Z20.822 Contact with and (suspected) exposure to COVID-19
CPT/HCPCS: 99284; 71045; 87426; 87804; 96372; J2405

== ENCOUNTER → 2025-02-26 | Emergency (ER) | payer BC ==
[~2025-02-26] VITALS: Ht 167.6 cm; Wt 43.2 kg
[~2025-02-26] MED LIST changes: +0.9% SODIUM CHLORIDE 10 ML SYRINGE IVP PRN; +ACETAMINOPHEN 325 MG TABLET PO PRN; +CefTRIAXone 1 GM/DEXTROSE 50 ML IV SCH; +DOCUSATE SODIUM 100 MG CAPSULE PO SCH; +HEPARIN SODIUM,PORCINE 5,000 UNITS/ML VIAL SQ SCH; +NALOXONE HCL 1 MG/ML 2 ML SYRINGE IVP PRN; +ONDANSETRON HCL 4 MG/2 ML VIAL IVP PRN; +SODIUM CHLORIDE 0.9% 500 ML IV ONE
[2025-02-26 16:13] VITALS: TEMP 98.1
[2025-02-26 18:36] VITALS: BP 119/95; PULSE 101; RESP 21; O2SAT 100
[2025-02-26 19:19] LABS: PLATELET COUNT (AUTO) 160 K/uL (150-450); RED BLOOD CELL COUNT(AUTO) 3.13 MIL/uL (4.50-5.90); RED CELL DISTRIBUTION WIDTH 15.1 % (11.5-14.5); WHITE BLOOD COUNT (AUTO) 4.0 K/uL (4.5-11.0)
[2025-02-26 19:24] LABS: APPEARANCE,URINE CLEAR (CLEAR); GLUCOSE, URINE (UA) >=1000 mg/dL (NEGATIVE); LEUKOCYTE ESTERASE ,URINE NEGATIVE (NEGATIVE); NITRATE,URINE NEGATIVE (NEGATIVE); OCCULT BLOOD,URINE NEGATIVE (NEGATIVE); SPECIFIC GRAVITIY, URINE 1.023 (1.003-1.030)
[2025-02-26 19:25] LABS: CALCIUM, TOTAL 9.4 mg/dL (8.8-10.5); CREATININE 1.59 mg/dL (0.60-1.30); GLOMERULAR FILTR. RATE CALC 51 mL/min (>60); GLUCOSE,RANDOM 197 mg/dL (70-110); SODIUM SERUM 138 mmol/L (136-145); UREA NITROGEN, BLOOD 29 mg/dL (7-18)
[2025-02-26 19:33] LABS: TROPONIN I-HIGH SENSITIVITY 5 ng/L (<76)
[2025-02-26 19:36] LABS: LACTIC ACID 1.9 mmol/L (0.4-2.0)
== END | disposition still patient (30) ==
LOC: EMS 16:12
DX: R11.2 Nausea with vomiting, unspecified (principal); E84.9 Cystic fibrosis, unspecified; E11.40 Type 2 diabetes mellitus with diabetic neuropathy, unspecified; Z79.52 Long term (current) use of systemic steroids; Z79.621 Long term (current) use of calcineurin inhibitor; Z87.442 Personal history of urinary calculi; Z88.0 Allergy status to penicillin; Z88.5 Allergy status to narcotic agent; Z91.041 Radiographic dye allergy status; Z94.0 Kidney transplant status; Z94.2 Lung transplant status; Z90.49 Acquired absence of other specified parts of digestive tract; Z88.8 Allergy status to other drugs, medicaments and biological substances; Z79.899 Other long term (current) drug therapy
CPT/HCPCS: 80048; 81001; 83605; 83690; 84484; 85025; 85730; 99283